=== PATIENT | female | born 1965 | race Caucasian/White ===

== ENCOUNTER → 2016-07-02 | Outpatient (CLI) | payer OTHER ==
[~2016-07-02] MED LIST: /ADVA50050 INH; /GLIM2TA; /ROPI1TA OR; ALBU17IN INH; ALPH0.156 OU; BUPR150T2 PO; BUSP15TA47 PO; CELE10TA PO; CITA20TA4 PO; CLAR250S PO; CRES5TAB PO; FENO160T10 PO; FERR325T PO; FERR325T16 PO; FLEX10TA2 PO; FLEXERIL PO; FLOV50AE INH; FLUC150T PO; FOLI1TAB PO; FURO20TA PO; HYDR25T PO; KETO0.02 OU; LATA5OPD OU; LISI5TAB OR; MAXA10TA17 OR; MONT10TA2 PO; NAPR500T2 PO; OMEP20CA3 PO; OXYB5TA PO; PERC5TAB6 PO; PRED1TA; PRIL20CA; PROV90AE NEB; QVAR40AE8 IN; SIMV5TAB4 PO; SULF500T2 PO; SYMB16INH INH; TIZA4CAP3 PO; TRAD5TAB PO; TRAZ50TA4 PO; VALI2TAB PO; VITA100037 PO; VITA100041 PO; VITA50003 PO; VITATAB11 PO; ZYRT10CA PO
--- NOTE | 2016-07-18 02:02 | ECWPNPC ---
PATIENT NAME: LAURYN DANIEL : 1965 GENDER: FEMALE VISIT DATE: 07/02/2016 DISCHARGE DATE: 07/02/16 1157 VISIT LOCKED DATE TIME: PHYSICIAN: DOMINGO MATUTE RESOURCE: DOMINGO MATUTE REASON FOR APPOINTMENT 1. -BACK HISTORY OF PRESENT ILLNESS HISTORY OF PRESENT ILLNESS: PAIN THE PATIENT DESCRIBES THE PAIN... FALL RISK SCREENING: SCREENING :NO FALLS IN THE PAST YEAR TODAY'S VISIT: NOTES: RATES LOW BACK PAIN 2/10. NOTES AREA SORE, ACHY, TENDER. HAS BEEN ABLE TO WALK AND MOVE. IS DOING WATER AEROBICS. HAS LOST 100 LBS SINCE GASTRIC BYPASS SURGERY. HAS HAD NO COMPLICATIONS.. CURRENT MEDICATIONS TAKING ASMANEX HFA 100 MCG/ACT AEROSOL 2 PUFFS INHALATION TWICE A DAY TAKING VITAMIN D2 125 MG TABLET ORALLY WEEKLY TAKING ALPHAGAN P 0.15 % SOLUTION 1 DROP INTO AFFECTED EYE OPHTHALMIC THREE TIMES A DAY TAKING LASIX 40 MG TABLET 1 TABLET ORALLY ONCE A DAY TAKING FERROUS GLUCONATE 325 MG TABLET ORALLY BID TAKING FOLIC ACID 1 MG TABLET 1 TABLET ORALLY ONCE A DAY TAKING KETOTIFEN FUMARATE 0.025 % SOLUTION 1 DROP INTO AFFECTED EYE OPHTHALMIC TWICE A DAY TAKING REQUIP 1 MG TABLET ORALLY ONCE A DAY TAKING FUSION 65-65-25-30 MG CAPSULE 1 DROP ORALLY FOUR TIMES DAILY TAKING OXYBUTYNIN CHLORIDE 10 MG ORALLY TWICE A DAY NOT-TAKING VITAMIN B-12 CR 1000 MCG TABLET EXTENDED RELEASE 1 TABLET ORALLY ONCE A DAY NOT-TAKING BUSPIRONE HCL 15 MG TABLET 1 TABLET ORALLY TWICE A DAY, NOTES: 03/19/16 NOT-TAKING CITALOPRAM HYDROBROMIDE 40 MG TABLET ORALLY ONCE A DAY, NOTES: 03/19/16 NOT-TAKING FENOFIBRATE 160 MG TABLET ORALLY ONCE A DAY, NOTES: 03/19/16 NOT-TAKING LISINOPRIL 5 MG TABLET 1 TABLET ORALLY ONCE A DAY, NOTES: 03/19/16 NOT-TAKING MONTELUKAST SODIUM 10 MG TABLET ORALLY ONCE A DAY, NOTES: 03/19/16 NOT-TAKING SIMVASTATIN 10 MG TABLET 1 TABLET IN THE EVENING ORALLY ONCE A DAY, NOTES: 03/19/16 NOT-TAKING TIZANIDINE HCL 4 MG TABLET ORALLY TWICE A DAY, NOTES: 10/25/16@2200 NOT-TAKING TRAZODONE HCL 50 MG TABLET ORALLY ONCE A DAY, NOTES: 03/19/16@2199 NOT-TAKING CYCLOBENZAPRINE HCL 10 MG TABLET 1 TABLET ORALLY THREE TIMES A DAY, NOTES: 03/19/16 NOT-TAKING MOBIC 15 MG TABLET 1 TABLET ORALLY ONCE A DAY, NOTES: 03/19/16 NOT-TAKING FLOVENT DISKUS 2 PUFFS INHALATION THREE TIMES A DAY MEDICATION LIST REVIEWED AND RECONCILED WITH THE PATIENT ALLERGIES CODEINE SULFATE: HYPOTENSION COCONUT: VOMIT SOCIAL HISTORY GENERAL: TOBACCO USE ARE YOU A:NONSMOKER LEARNING BARRIERS / SPECIAL NEEDS ORIENTED TO PLAN OF CARE: PATIENT, PAIN MANAGEMENT PATIENT, ORIENTED TO PLAN OF CARE: PATIENT, PAIN MANAGEMENT PATIENT. NEW PATIENT PAIN DIARY TODAY'S VISITNOTES FROM 0-10, WHAT LEVEL IS YOUR PAIN TODAY?0 PAIN CLINIC PFS, CLERGY, PUBLIC HEALTH REFERRALS PFS REFERRAL NEEDED?NO CLERGY REFERRAL NEEDED?NO PUBLIC HEALTH REFERRAL NEEDED?NO WAS THE PROVIDER NOTIFIED OF ANY PERTINENT INFO?NO PFS REFERRAL NEEDED?NO CLERGY REFERRAL NEEDED?NO PUBLIC HEALTH REFERRAL NEEDED?NO WAS THE PROVIDER NOTIFIED OF ANY PERTINENT INFO?NO REVIEW OF SYSTEMS CONSTITUTIONAL: ANY CHANGE IN YOUR MEDICAL CONDITION? NO . CHILLS NO . FEVER NO . INFECTION: DO YOU HAVE NEW INFECTIONS? NO . DO YOU HAVE HISTORY OF MRSA? NO . MUSCULOSKELETAL: ANY NEW PATTERNS OF PAIN OR NUMBNESS? NO . GASTROENTEROLOGY: GENERAL NO DIARRHEA/CONSTIPATION . ANY NEW CHANGE IN BOWEL CONTROL? NO . GENITOURINARY: ANY NEW CHANGE IN BLADDER CONTROL? NO . IS THERE A CHANCE YOU COULD BE ? NO . HEMATOLOGY/LYMPH: DO YOU TAKE ANY BLOOD THINNERS? (FOR EXAMPLE- COUMADIN, PLAVIX, AGGRENOX, PLATEL, PRADAXA, OR XARELTO) NO . WHEN WAS YOUR LAST DOSE? DATE: TIME: . NEUROLOGY: HAVE YOU FALLEN IN THE PAST 6 MONTHS? NO . ANY NEW EXTREMITY NUMBNESS OR WEAKNESS? NO . CARDIOLOGY: DO YOU HAVE A PACEMAKER OR DEFIBRILLATOR? NO . RESPIRATORY: HAVE YOU BEEN SICK IN THE PAST WEEK? NO . FEVER NO . FLU LIKE SYMPTOMS? NO . COUGH NO . INTEGUMENTARY: DO YOU HAVE ANY RASHES OR OPEN SORES? NO . ALLERGIC/IMMUNO: ARE YOU ALLERGIC TO SHELLFISH OR IV DYE? NO . ANY NEW ALLERGIES? NO . PSYCHIATRIC: DO YOU HAVE THOUGHTS OF HURTING YOURSELF OR SOMEONE ELSE? NO . ARE YOU ABUSED, NEGLECTED, OR IN AN UNSAFE ENVIRONMENT? NO . ENDOCRINOLOGY: ARE YOU DIABETIC? NO . OTHER: DO YOU NEED ANY PRESCRIPTIONS? NO . IF YES, PLEASE LIST: ____ . ANY NEW PROBLEMS WITH YOUR MEDICATIONS? NO . WHEN DID YOU LAST EAT? ____ . WHEN DID YOU LAST DRINK? ____ . WHAT DID YOU LAST DRINK? ____ . NAME OF PERSON DRIVING YOU HOME? ____ . DO YOU HAVE ANY OTHER QUESTIONS OR CONCERNS NO . REVIEWED BY: PROVIDER: DOMINGO TSE . VITAL SIGNS WT 227.4 LBS, HT 61 IN, BMI 42.96 INDEX, BP 149/81 MM HG, HR 76 /MIN, RR 16 /MIN, TEMP 96.6 F, OXYGEN SAT % 96, NA INITIALS TL 1046, REVIEWED BY: ADPT WEIGHED ON SCALE- TL. EXAMINATION GENERAL EXAMINATION: PSYCHALERT , ORIENTED X 3 , APPROPRIATE MOOD AND AFFECT , SMILING AND TALKATIVE. LUNGS:CLEAR TO AUSCULTATION BILATERALLY. HEART:HEART RATE REGULAR. MUSCULOSKELETAL:FEW TRIGGER POINTS IDENTIFIED OVER LUMBOSACRAL AXIS. RISES EASILY TO STANDING POSITION. GAIT WIDEBASED, NON ANTALGIC. 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 PROCEDURE CODES FA211 ESTABILISHED PATIENT [facility] CHARGE DISPOSITION & COMMUNICATION FOLLOW UP 6 MONTHS ELECTRONICALLY SIGNED BY DANIELLE ABDULLAHI ON 07/17/2016 AT 01:43 PM EST DISCLAIMER : THIS IS A VISIT SUMMARY EXTRACTED FROM THE [employer] CHART. IT IS NOT A COPY OF THE [employer] PROGRESS NOTE. MTDD
== END ==
LOC: M PAIN 10:20
PROVIDERS: ATTEND Nurse Practitioner Family
DX: Z09 Encounter for follow-up examination after completed treatment for conditions other than malignant neoplasm (principal); G89.29 Other chronic pain; M79.1 Myalgia; M47.816 Spondylosis without myelopathy or radiculopathy, lumbar region; M46.96 Unspecified inflammatory spondylopathy, lumbar region; Z88.5 Allergy status to narcotic agent; Z91.018 Allergy to other foods; Z79.899 Other long term (current) drug therapy

== ENCOUNTER → 2016-08-05 | Outpatient (REF) | payer OTHER ==
[2016-08-05 18:42] LABS: PERCENT SATURATION 35.5 % (13.2-37.4)
== END ==
LOC: M LAB REF 17:26
PROVIDERS: ATTEND Internal Medicine Nephrology
DX: D50.9 Iron deficiency anemia, unspecified (principal)

== ENCOUNTER → 2016-12-30 | Outpatient (CLI) | payer OTHER ==
[~2016-12-30] MED LIST changes: +HYDR-3363 PO; -HYDR25T PO; -OXYB5TA PO; +OXYB5TAB10 PO; +PERC5TAB12 PO; -PERC5TAB6 PO; +TRAZ50TA11 PO; -TRAZ50TA4 PO; +VITA-182 PO; -VITA100037 PO; -VITA100041 PO; +VITA100067 PO; +VITA1CAP40 PO; -VITA50003 PO
--- NOTE | 2017-01-18 23:40 | ECWPNPC ---
PATIENT NAME: LAURYN DANIEL : 1965 GENDER: FEMALE VISIT DATE: 12/30/2016 DISCHARGE DATE: 12/30/16923 VISIT LOCKED DATE TIME: PHYSICIAN: DOMINGO MATUTE RESOURCE: DOMINGO MATUTE REASON FOR APPOINTMENT 1. BACK HISTORY OF PRESENT ILLNESS TODAY'S VISIT: NOTES: RATES PAIN TODAY 1/10. DESCRIBES PAIN ACHING AND SORE AND REMAINS CENTERED AT LOW BACK. IS NOTING KNEE PAIN IS FOLLOWING WITH ORTHOPEDICS. IS WALKING > 1 MILE DAILY. IS DOING WATER EXERCISES. IS CONSIDERING TUMMY TUCK FOR SKIN REMOVAL.. HISTORY OF PRESENT ILLNESS: PAIN THE PATIENT DESCRIBES THE PAIN... FALL RISK SCREENING: SCREENING :NO FALLS IN THE PAST YEAR CURRENT MEDICATIONS TAKING ASMANEX HFA 100 MCG/ACT AEROSOL 2 PUFFS INHALATION TWICE A DAY TAKING VITAMIN D2 125 MG TABLET ORALLY WEEKLY TAKING FERROUS GLUCONATE 325 MG TABLET ORALLY BID TAKING FOLIC ACID 1 MG TABLET 1 TABLET ORALLY ONCE A DAY TAKING KETOTIFEN FUMARATE 0.025 % SOLUTION 1 DROP INTO AFFECTED EYE OPHTHALMIC TWICE A DAY TAKING REQUIP 1 MG TABLET ORALLY ONCE A DAY NOT-TAKING ALPHAGAN P 0.15 % SOLUTION 1 DROP INTO AFFECTED EYE OPHTHALMIC THREE TIMES A DAY NOT-TAKING LASIX 40 MG TABLET 1 TABLET ORALLY ONCE A DAY NOT-TAKING FUSION 65-65-25-30 MG CAPSULE 1 DROP ORALLY FOUR TIMES DAILY NOT-TAKING OXYBUTYNIN CHLORIDE 10 MG ORALLY TWICE A DAY NOT-TAKING VITAMIN B-12 ER 1000 MCG TABLET EXTENDED RELEASE 1 TABLET ORALLY ONCE A DAY NOT-TAKING BUSPIRONE HCL 15 MG TABLET 1 TABLET ORALLY TWICE A DAY, NOTES: 03/19/16 NOT-TAKING CITALOPRAM HYDROBROMIDE 40 MG TABLET ORALLY ONCE A DAY, NOTES: 03/19/16 NOT-TAKING FENOFIBRATE 160 MG TABLET ORALLY ONCE A DAY, NOTES: 03/19/16 NOT-TAKING LISINOPRIL 5 MG TABLET 1 TABLET ORALLY ONCE A DAY, NOTES: 03/19/16 NOT-TAKING MONTELUKAST SODIUM 10 MG TABLET ORALLY ONCE A DAY, NOTES: 03/19/16 NOT-TAKING SIMVASTATIN 10 MG TABLET 1 TABLET IN THE EVENING ORALLY ONCE A DAY, NOTES: 03/19/16 NOT-TAKING TIZANIDINE HCL 4 MG TABLET ORALLY TWICE A DAY, NOTES: 03/19/16 NOT-TAKING TRAZODONE HCL 50 MG TABLET ORALLY ONCE A DAY, NOTES: 03/19/16 NOT-TAKING CYCLOBENZAPRINE HCL 10 MG TABLET 1 TABLET ORALLY THREE TIMES A DAY, NOTES: 03/19/16 NOT-TAKING MOBIC 15 MG TABLET 1 TABLET ORALLY ONCE A DAY, NOTES: 03/19/16 NOT-TAKING FLOVENT DISKUS 2 PUFFS INHALATION THREE TIMES A DAY MEDICATION LIST REVIEWED AND RECONCILED WITH THE PATIENT ALLERGIES CODEINE SULFATE: HYPOTENSION COCONUT: VOMIT SURGICAL HISTORY CARPAL TUNNEL RIGHT WRITS 2000 ARTEIAL GNOSTICIST BIOPSY 1996 TUBAL LIGATION 1989 CHOLESCYSTECTOMY 200 RIGHT SHOULDER ROTATER CUFF 2013 HYSTERECTOMY 1993 GASTRIC BYPASS 2016 REVIEW OF SYSTEMS REVIEWED BY: PROVIDER: DOMINGO TSE . CONSTITUTIONAL: ANY CHANGE IN YOUR MEDICAL CONDITION? NO . CHILLS NO . FEVER NO . INFECTION: DO YOU HAVE NEW INFECTIONS? NO . DO YOU HAVE HISTORY OF MRSA? NO . MUSCULOSKELETAL: ANY NEW PATTERNS OF PAIN OR NUMBNESS? NO . GASTROENTEROLOGY: GENERAL HAS LOST 200 LGBS 0VER LAST 05/27 AND 150 SINCE GASTRIC BYPASS. . ANY NEW CHANGE IN BOWEL CONTROL? NO . GENITOURINARY: ANY NEW CHANGE IN BLADDER CONTROL? NO . IS THERE A CHANCE YOU COULD BE ? NO . HEMATOLOGY/LYMPH: DO YOU TAKE ANY BLOOD THINNERS? (FOR EXAMPLE- COUMADIN, PLAVIX, AGGRENOX, PLATEL, PRADAXA, OR XARELTO) NO . WHEN WAS YOUR LAST DOSE? DATE: TIME: . NEUROLOGY: HAVE YOU FALLEN IN THE PAST 6 MONTHS? NO . ANY NEW EXTREMITY NUMBNESS OR WEAKNESS? NO . CARDIOLOGY: DO YOU HAVE A PACEMAKER OR DEFIBRILLATOR? NO . RESPIRATORY: HAVE YOU BEEN SICK IN THE PAST WEEK? NO . FEVER NO . FLU LIKE SYMPTOMS? NO . COUGH NO . INTEGUMENTARY: DO YOU HAVE ANY RASHES OR OPEN SORES? NO . ALLERGIC/IMMUNO: ARE YOU ALLERGIC TO SHELLFISH OR IV DYE? NO . ANY NEW ALLERGIES? NO . PSYCHIATRIC: DO YOU HAVE THOUGHTS OF HURTING YOURSELF OR SOMEONE ELSE? NO . ARE YOU ABUSED, NEGLECTED, OR IN AN UNSAFE ENVIRONMENT? NO . ENDOCRINOLOGY: ARE YOU DIABETIC? NO . OTHER: DO YOU NEED ANY PRESCRIPTIONS? NO . IF YES, PLEASE LIST: ____ . ANY NEW PROBLEMS WITH YOUR MEDICATIONS? NO . WHEN DID YOU LAST EAT? ____ . WHEN DID YOU LAST DRINK? ____ . WHAT DID YOU LAST DRINK? ____ . NAME OF PERSON DRIVING YOU HOME? ____ . DO YOU HAVE ANY OTHER QUESTIONS OR CONCERNS NO . SKIN: DO YOU HAVE ANY RASHES OR OPEN SORES? RASH ON FOREHEAD . VITAL SIGNS WT 200.0 LBS, HT 61 IN, BMI 37.79 INDEX, BP 142/71 MM HG, HR 55 /MIN, RR 16 /MIN, TEMP 97.7 F, OXYGEN SAT % 97%, NA INITIALS TR 0850, REVIEWED BY: KELECHI. EXAMINATION GENERAL EXAMINATION: PSYCHALERT , ORIENTED X 3 , SMILING AND TALKATIVE. LUNGS:CLEAR TO AUSCULTATION BILATERALLY. HEART:HEART RATE REGULAR. 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 KEEP UP THE GOOD WORK. PROCEDURE CODES FA211 ESTABILISHED PATIENT [facility] CHARGE DISPOSITION & COMMUNICATION FOLLOW UP 6 MONTH (REASON: BACK PAIN) ELECTRONICALLY SIGNED BY DANIELLE ABDULLAHI ON 01/18/2017 AT 02:54 PM EDT DISCLAIMER : THIS IS A VISIT SUMMARY EXTRACTED FROM THE [employer] CHART. IT IS NOT A COPY OF THE [employer] PROGRESS NOTE. EDISON
== END ==
LOC: M PAIN 08:40
PROVIDERS: ATTEND Nurse Practitioner Family
DX: M79.1 Myalgia (principal); M47.816 Spondylosis without myelopathy or radiculopathy, lumbar region; Z88.5 Allergy status to narcotic agent; Z91.018 Allergy to other foods; Z79.899 Other long term (current) drug therapy

== ENCOUNTER → 2017-03-20 | Outpatient (CLI) | payer OTHER ==
--- NOTE | 2017-04-21 00:18 | ECWPNPC ---
PATIENT NAME: LAURYN DANIEL : 1965 GENDER: FEMALE VISIT DATE: 03/20/2017 DISCHARGE DATE: 03/20/17 0954 VISIT LOCKED DATE TIME: PHYSICIAN: DOMINGO MATUTE RESOURCE: DOMINGO MATUTE REASON FOR APPOINTMENT 1. BACK PAIN, INCREASING HISTORY OF PRESENT ILLNESS HISTORY OF PRESENT ILLNESS: PAIN THE PATIENT DESCRIBES THE PAIN... FALL RISK SCREENING: SCREENING :NO FALLS IN THE PAST YEAR TODAY'S VISIT: NOTES: RATES PAIN TODAY 10/10. PAIN IS CENTERED LOW BACK WITH RADIATION OVER BOTH HIPS AND ANTERIOR THIGHS. DESCRIBES PAIN PAIN ACHING, BURNING SHARP AND STABBING TENDER, THROBBING AND SORE. PAIN IS CONSTANT. DENIES NUMBNESS AND TINGLING IN TO LEGS OR FEET. NO LOSS OF BOWEL OR BLADDER CONTROL. REPORTS GENERALIZED HEAVINESS IN LEGS WITH WALKING OR EXERCISE. CURRENT MEDICATIONS TAKING ASMANEX HFA 100 MCG/ACT AEROSOL 2 PUFFS INHALATION TWICE A DAY TAKING FERROUS GLUCONATE 325 MG TABLET ORALLY BID TAKING FOLIC ACID 1 MG TABLET 1 TABLET ORALLY ONCE A DAY TAKING KETOTIFEN FUMARATE 0.025 % SOLUTION 1 DROP INTO AFFECTED EYE OPHTHALMIC TWICE A DAY TAKING REQUIP 1 MG TABLET ORALLY ONCE A DAY TAKING MULTIVITAMIN ADULTS - TABLET 2 TAB ORALLY DAILY NOT-TAKING VITAMIN D2 125 MG TABLET ORALLY WEEKLY NOT-TAKING ALPHAGAN P 0.15 % SOLUTION 1 DROP INTO AFFECTED EYE OPHTHALMIC THREE TIMES A DAY NOT-TAKING LASIX 40 MG TABLET 1 TABLET ORALLY ONCE A DAY NOT-TAKING FUSION 65-65-25-30 MG CAPSULE 1 DROP ORALLY FOUR TIMES DAILY NOT-TAKING OXYBUTYNIN CHLORIDE 10 MG ORALLY TWICE A DAY NOT-TAKING VITAMIN B-12 ER 1000 MCG TABLET EXTENDED RELEASE 1 TABLET ORALLY ONCE A DAY NOT-TAKING BUSPIRONE HCL 15 MG TABLET 1 TABLET ORALLY TWICE A DAY, NOTES: 03/19/16 NOT-TAKING CITALOPRAM HYDROBROMIDE 40 MG TABLET ORALLY ONCE A DAY, NOTES: 03/19/16 NOT-TAKING FENOFIBRATE 160 MG TABLET ORALLY ONCE A DAY, NOTES: 03/19/16 NOT-TAKING LISINOPRIL 5 MG TABLET 1 TABLET ORALLY ONCE A DAY, NOTES: 03/19/16 NOT-TAKING MONTELUKAST SODIUM 10 MG TABLET ORALLY ONCE A DAY, NOTES: 03/19/16 NOT-TAKING SIMVASTATIN 10 MG TABLET 1 TABLET IN THE EVENING ORALLY ONCE A DAY, NOTES: 03/19/16 NOT-TAKING TIZANIDINE HCL 4 MG TABLET ORALLY TWICE A DAY, NOTES: 03/19/16 NOT-TAKING TRAZODONE HCL 50 MG TABLET ORALLY ONCE A DAY, NOTES: 03/19/16 NOT-TAKING CYCLOBENZAPRINE HCL 10 MG TABLET 1 TABLET ORALLY THREE TIMES A DAY, NOTES: 03/19/16 NOT-TAKING MOBIC 15 MG TABLET 1 TABLET ORALLY ONCE A DAY, NOTES: 03/19/16 NOT-TAKING FLOVENT DISKUS 2 PUFFS INHALATION THREE TIMES A DAY MEDICATION LIST REVIEWED AND RECONCILED WITH THE PATIENT ALLERGIES CODEINE SULFATE: HYPOTENSION COCONUT: VOMIT NUTS: VOMITING: ALLERGY SOCIAL HISTORY GENERAL: TOBACCO USE ARE YOU A:NONSMOKER ALCOHOL SCREENING POINTS1 INTERPRETATIONNEGATIVE RECREATIONAL DRUG USE DRUG USE?NO YARSANI [id number] NONE LANGUAGE LANGUAGES SPOKEN:TRISTANIAN LEARNING BARRIERS / SPECIAL NEEDS BARRIERS TO LEARNING?NO HEARING IMPAIRED?NO VISION IMPAIRED?YES :CORRECTIVE LENSES COGNITIVELY IMPAIRED?NO READINESS TO LEARN?YES LEARNING PREFERENCES?NO LEARNING CAPABILITIES PRESENT?YES EMOTIONAL BARRIERS?NO SPECIAL DEVICES?NO MECHANICS SUPERVISOR NEEDED?NO NEW PATIENT PAIN DIARY TODAY'S VISITNOTES FROM 0-10, WHAT LEVEL IS YOUR PAIN TODAY?0 PAIN CLINIC PFS, CLERGY, PUBLIC HEALTH REFERRALS PFS REFERRAL NEEDED?NO CLERGY REFERRAL NEEDED?NO PUBLIC HEALTH REFERRAL NEEDED?NO WAS THE PROVIDER NOTIFIED OF ANY PERTINENT INFO?NO HAS THE PATIENT BEEN EDUCATED REGARDING HIS/HER PLAN OF CARE?YES HAS THE PATIENT BEEN EDUCATED REGARDING PAIN, THE RISK FOR PAIN, THE IMPORTANCE OF EFFECTIVE PAIN MANAGEMENT, AND THE PAIN ASSESSMENT PROCESS?YES ADVANCE DIRECTIVES HEALTH CARE PROXY?NO WOULD YOU LIKE MORE INFORMATION?NO DO YOU HAVE A DNR?NO WOULD YOU LIKE MORE INFORMATION?NO LIVING WILL?NO WOULD YOU LIKE MORE INFORMATION?NO POWER OF PIPING DRAFTER?NO WOULD YOU LIKE MORE INFORMATION?NO REVIEW OF SYSTEMS REVIEWED BY: PROVIDER: DOMINGO TSE . CONSTITUTIONAL: ANY CHANGE IN YOUR MEDICAL CONDITION? NO . CHILLS NO . FEVER NO . INFECTION: DO YOU HAVE NEW INFECTIONS? NO . DO YOU HAVE HISTORY OF MRSA? NO . MUSCULOSKELETAL: ANY NEW PATTERNS OF PAIN OR NUMBNESS? NO . GASTROENTEROLOGY: GENERAL S/P GASTRIC BYPASS SURGERY AND CONTINUES TO HAVE NO GI COMPLICATIONS BUT HAS MADE EXCELLANT PROGESS IN WEIGHT LOSS. . ANY NEW CHANGE IN BOWEL CONTROL? NO . GENITOURINARY: ANY NEW CHANGE IN BLADDER CONTROL? NO . IS THERE A CHANCE YOU COULD BE ? NO . HEMATOLOGY/LYMPH: DO YOU TAKE ANY BLOOD THINNERS? (FOR EXAMPLE- COUMADIN, PLAVIX, AGGRENOX, PLATEL, PRADAXA, OR XARELTO) NO . WHEN WAS YOUR LAST DOSE? DATE: TIME: . NEUROLOGY: HAVE YOU FALLEN IN THE PAST 6 MONTHS? NO . ANY NEW EXTREMITY NUMBNESS OR WEAKNESS? NO . CARDIOLOGY: DO YOU HAVE A PACEMAKER OR DEFIBRILLATOR? NO . RESPIRATORY: HAVE YOU BEEN SICK IN THE PAST WEEK? NO . FEVER NO . FLU LIKE SYMPTOMS? NO . COUGH NO . INTEGUMENTARY: DO YOU HAVE ANY RASHES OR OPEN SORES? NO . ALLERGIC/IMMUNO: ARE YOU ALLERGIC TO SHELLFISH OR IV DYE? NO . ANY NEW ALLERGIES? NO . PSYCHIATRIC: DO YOU HAVE THOUGHTS OF HURTING YOURSELF OR SOMEONE ELSE? NO . ARE YOU ABUSED, NEGLECTED, OR IN AN UNSAFE ENVIRONMENT? NO . ENDOCRINOLOGY: ARE YOU DIABETIC? NO . OTHER: DO YOU NEED ANY PRESCRIPTIONS? NO . IF YES, PLEASE LIST: ____ . ANY NEW PROBLEMS WITH YOUR MEDICATIONS? NO . WHEN DID YOU LAST EAT? ____ . WHEN DID YOU LAST DRINK? ____ . WHAT DID YOU LAST DRINK? ____ . NAME OF PERSON DRIVING YOU HOME? ____ . DO YOU HAVE ANY OTHER QUESTIONS OR CONCERNS NO . VITAL SIGNS WT 199.4 LBS, HT 61 IN, BMI 37.67 INDEX, BP 146/76 MM HG, HR 64 /MIN, RR 18 /MIN, TEMP 98.6 F, OXYGEN SAT % 98%, SAFE IN ENV? (Y/N) YES, REVIEWED BY: JENNIFER (DONE AT 0915). EXAMINATION GENERAL EXAMINATION: PSYCHALERT , ORIENTED X 3 , APPROPRIATE MOOD AND AFFECT , SMILING AND TALKATIVE. LUNGS:CLEAR TO AUSCULTATION BILATERALLY. HEART:HEART RATE REGULAR. MUSCULOSKELETAL:FEW TRIGGER POINTS IDENTIFIED OVER LUMBOSACRAL AXIS. RISES EASILY TO STANDING POSITION. GAIT WIDEBASED, NON ANTALGIC. PAIN WITH PACK EXTENSION, CAN FLEX TO 60 DEGREES.. 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 WITHOUT [id number],SUSAN M 03/20/2017 9:38:27 AM > NEEDS OPEN MRI - HX OF LUMBAR DISC EXTRUSSION WITH INCREASED RADICULAR SYMPTOMS TRIGGER POINT 3 + DOMINGO FERRARO 03/20/2017 9:37:13 AM > LOW BACK NOTES: WALK AND DO EXERCISES DAILYTAKE 1/2 TO 1 TAB OF FLEXERIL AT BEDTIME. CALL IF SCRIPT NEEDED,TRIGGER POINT INJECTION MATERIAL WAS PRINTED/REQUEST AUTH FOR UPDATED MRI OF LUMBAR SPINE. PT HAS BEEN UNDER OUT CARE FOR BACK PAIN FOR 5 YEARS AND LAST IMAGING WAS MRI OF LUMBAR SPINE COMPLETED 02/21/11. USE OF NSAIDS IS CONTRAINDICATED DUE TO GASTRIC BYPASS. SHE HAS BEEN IN PHYSICAL THERAPY AND IS ATTEMPTING TO ACTIVELY EXERCISE - ATTENDS EXERCISE CLASS AT THE [facility]. SHE HAS COMPLETED PHYSICAL THERAPY. USE OF MUSCLE RELAXERS SUCH CYCLOBENZAPRINE AND METHOCARBOMAL HAVE BEEN DIRECTED BY OUR PRACTICE FOR OVER 6 WEEKS WITHOUT IMPROVEMENT. PAIN HAS INCREASED AND HAS BEEN PERSISTANT. SHE IS EXPERIENCING NEUROGENIC CLAUDICATION INTO THE LEGS. UPDATED MRI IS REQUIRED TO GIVE DIRECTION FRO ONGOING TREATMENT. PREVENTIVE MEDICINE PAIN CLINIC TEACHING: PROCEDURE TEACHING PRE PROCEDURE TEACHING DONE FOR TPI . PROCEDURE CODES FA211 ESTABILISHED PATIENT [facility] FACILITY CHARGE DISPOSITION & COMMUNICATION FOLLOW UP AFTER INJECTION (REASON: CHECK AUTH FOR MRI AND TPI) ELECTRONICALLY SIGNED BY DANIELLE ABDULLAHI ON 04/20/2017 AT 11:52 AM EST DISCLAIMER : THIS IS A VISIT SUMMARY EXTRACTED FROM THE [employer] CHART. IT IS NOT A COPY OF THE [employer] PROGRESS NOTE. EDISON
== END ==
LOC: M PAIN 08:45
PROVIDERS: ATTEND Nurse Practitioner Family
DX: M79.1 Myalgia (principal); M47.816 Spondylosis without myelopathy or radiculopathy, lumbar region; M54.5 Low back pain; G89.29 Other chronic pain; Z79.899 Other long term (current) drug therapy; Z88.5 Allergy status to narcotic agent; Z91.018 Allergy to other foods

== ENCOUNTER → 2017-04-02 | Outpatient (CLI) | payer OTHER ==
[~2017-04-02] MED LIST changes: +BUPIVACAINE HCL 0.25% 10 ML VIAL As Ordered ONE; +BUPIVACAINE HCL 0.25% 30 ML VIAL As Ordered ONE; +TRIAMCINOLONE ACETONIDE SUSP 40 MG/ML VIAL (J3301) As Ordered ONE
--- NOTE | 2017-04-08 00:18 | ECWPNPC ---
PATIENT NAME: LAURYN DANIEL : 1965 GENDER: FEMALE VISIT DATE: 04/02/2017 DISCHARGE DATE: 04/02/17 1435 VISIT LOCKED DATE TIME: PHYSICIAN: LUCIANO ESPINOZA RESOURCE: LUCIANO ESPINOZA REASON FOR APPOINTMENT 1. TPI HISTORY OF PRESENT ILLNESS HISTORY OF PRESENT ILLNESS: PAIN THE PATIENT DESCRIBES THE PAIN... FALL RISK SCREENING: SCREENING :NO FALLS IN THE PAST YEAR CURRENT MEDICATIONS TAKING ASMANEX HFA 100 MCG/ACT AEROSOL 2 PUFFS INHALATION TWICE A DAY, NOTES: 04-01-172099 TAKING FERROUS GLUCONATE 325 MG TABLET ORALLY BID, NOTES: 04-01-172099 TAKING FOLIC ACID 1 MG TABLET 1 TABLET ORALLY ONCE A DAY, NOTES: 04-01-172099 TAKING KETOTIFEN FUMARATE 0.025 % SOLUTION 1 DROP INTO AFFECTED EYE OPHTHALMIC TWICE A DAY, NOTES: 04-01-172099 TAKING REQUIP 1 MG TABLET ORALLY ONCE A DAY, NOTES: 04-01-172099 TAKING MULTIVITAMIN ADULTS - TABLET 2 TAB ORALLY DAILY, NOTES: 04-01-172099 DISCONTINUED VITAMIN D2 125 MG TABLET ORALLY WEEKLY DISCONTINUED ALPHAGAN P 0.15 % SOLUTION 1 DROP INTO AFFECTED EYE OPHTHALMIC THREE TIMES A DAY DISCONTINUED LASIX 40 MG TABLET 1 TABLET ORALLY ONCE A DAY DISCONTINUED FUSION 65-65-25-30 MG CAPSULE 1 DROP ORALLY FOUR TIMES DAILY DISCONTINUED OXYBUTYNIN CHLORIDE 10 MG ORALLY TWICE A DAY DISCONTINUED VITAMIN B-12 ER 1000 MCG TABLET EXTENDED RELEASE 1 TABLET ORALLY ONCE A DAY DISCONTINUED BUSPIRONE HCL 15 MG TABLET 1 TABLET ORALLY TWICE A DAY, NOTES: 03/19/16 DISCONTINUED CITALOPRAM HYDROBROMIDE 40 MG TABLET ORALLY ONCE A DAY, NOTES: 03/19/16 DISCONTINUED FENOFIBRATE 160 MG TABLET ORALLY ONCE A DAY, NOTES: 03/19/16 DISCONTINUED LISINOPRIL 5 MG TABLET 1 TABLET ORALLY ONCE A DAY, NOTES: 03/19/16 DISCONTINUED MONTELUKAST SODIUM 10 MG TABLET ORALLY ONCE A DAY, NOTES: 03/19/16 DISCONTINUED SIMVASTATIN 10 MG TABLET 1 TABLET IN THE EVENING ORALLY ONCE A DAY, NOTES: 03/19/16 DISCONTINUED TIZANIDINE HCL 4 MG TABLET ORALLY TWICE A DAY, NOTES: 03/19/16 DISCONTINUED TRAZODONE HCL 50 MG TABLET ORALLY ONCE A DAY, NOTES: 03/19/16@2199 DISCONTINUED CYCLOBENZAPRINE HCL 10 MG TABLET 1 TABLET ORALLY THREE TIMES A DAY, NOTES: 03/19/16 DISCONTINUED MOBIC 15 MG TABLET 1 TABLET ORALLY ONCE A DAY, NOTES: 03/19/16@2199 DISCONTINUED FLOVENT DISKUS 2 PUFFS INHALATION THREE TIMES A DAY MEDICATION LIST REVIEWED AND RECONCILED WITH THE PATIENT ALLERGIES CODEINE SULFATE: HYPOTENSION COCONUT: VOMIT NUTS: VOMITING: ALLERGY SOCIAL HISTORY GENERAL: TOBACCO USE ARE YOU A:NONSMOKER ALCOHOL SCREENING DID YOU HAVE A DRINK CONTAINING ALCOHOL IN THE PAST YEAR?YES HOW OFTEN DID YOU HAVE A DRINK CONTAINING ALCOHOL IN THE PAST YEAR?MONTHLY OR LESS (1 POINT) HOW MANY DRINKS DID YOU HAVE ON A TYPICAL DAY WHEN YOU WERE DRINKING IN THE PAST YEAR?1 OR 2 (0 POINTS) HOW OFTEN DID YOU HAVE SIX OR MORE DRINKS ON ONE OCCASION IN THE PAST YEAR?NEVER (0 POINTS) POINTS1 INTERPRETATIONNEGATIVE RECREATIONAL DRUG USE DRUG USE?NO AMISH [id number] NONE LANGUAGE LANGUAGES SPOKEN:LIBERIAN LEARNING BARRIERS / SPECIAL NEEDS BARRIERS TO LEARNING?NO HEARING IMPAIRED?NO VISION IMPAIRED?YES :CORRECTIVE LENSES COGNITIVELY IMPAIRED?NO READINESS TO LEARN?YES LEARNING PREFERENCES?NO LEARNING CAPABILITIES PRESENT?YES EMOTIONAL BARRIERS?NO SPECIAL DEVICES?NO WRAP YARN SORTER NEEDED?NO NEW PATIENT PAIN DIARY TODAY'S VISITNOTES FROM 0-10, WHAT LEVEL IS YOUR PAIN TODAY?0 PAIN CLINIC PFS, CLERGY, PUBLIC HEALTH REFERRALS PFS REFERRAL NEEDED?NO CLERGY REFERRAL NEEDED?NO PUBLIC HEALTH REFERRAL NEEDED?NO WAS THE PROVIDER NOTIFIED OF ANY PERTINENT INFO?NO HAS THE PATIENT BEEN EDUCATED REGARDING HIS/HER PLAN OF CARE?YES HAS THE PATIENT BEEN EDUCATED REGARDING PAIN, THE RISK FOR PAIN, THE IMPORTANCE OF EFFECTIVE PAIN MANAGEMENT, AND THE PAIN ASSESSMENT PROCESS?YES ADVANCE DIRECTIVES HEALTH CARE PROXY?NO WOULD YOU LIKE MORE INFORMATION?NO DO YOU HAVE A DNR?NO WOULD YOU LIKE MORE INFORMATION?NO LIVING WILL?NO WOULD YOU LIKE MORE INFORMATION?NO POWER OF FOUR [employer] 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 CONSTITUTIONAL: ANY CHANGE IN YOUR MEDICAL CONDITION? NO . CHILLS NO . FEVER NO . INFECTION: DO YOU HAVE NEW INFECTIONS? NO . DO YOU HAVE HISTORY OF MRSA? NO . MUSCULOSKELETAL: ANY NEW PATTERNS OF PAIN OR NUMBNESS? NO . GASTROENTEROLOGY: ANY NEW CHANGE IN BOWEL CONTROL? NO . GENITOURINARY: ANY NEW CHANGE IN BLADDER CONTROL? NO . IS THERE A CHANCE YOU COULD BE ? NO . HEMATOLOGY/LYMPH: DO YOU TAKE ANY BLOOD THINNERS? (FOR EXAMPLE- COUMADIN, PLAVIX, AGGRENOX, PLATEL, PRADAXA, OR XARELTO) NO . WHEN WAS YOUR LAST DOSE? DATE: TIME: . NEUROLOGY: HAVE YOU FALLEN IN THE PAST 6 MONTHS? NO . ANY NEW EXTREMITY NUMBNESS OR WEAKNESS? NO . CARDIOLOGY: DO YOU HAVE A PACEMAKER OR DEFIBRILLATOR? NO . RESPIRATORY: HAVE YOU BEEN SICK IN THE PAST WEEK? NO . FEVER NO . FLU LIKE SYMPTOMS? NO . COUGH NO . INTEGUMENTARY: DO YOU HAVE ANY RASHES OR OPEN SORES? NO . ALLERGIC/IMMUNO: ARE YOU ALLERGIC TO SHELLFISH OR IV DYE? NO . ANY NEW ALLERGIES? YES, PEANUTS ,,, ALLERGY TESTING DONE . PSYCHIATRIC: DO YOU HAVE THOUGHTS OF HURTING YOURSELF OR SOMEONE ELSE? NO . ARE YOU ABUSED, NEGLECTED, OR IN AN UNSAFE ENVIRONMENT? NO . ENDOCRINOLOGY: ARE YOU DIABETIC? NO . OTHER: DO YOU NEED ANY PRESCRIPTIONS? NO . IF YES, PLEASE LIST: ____ . ANY NEW PROBLEMS WITH YOUR MEDICATIONS? NO . WHEN DID YOU LAST EAT? 04-01-17 5:30 PM . WHEN DID YOU LAST DRINK? 04-02-17 9 AM . WHAT DID YOU LAST DRINK? WATER . NAME OF PERSON DRIVING YOU HOME? FAMILY SERVICES SPECIALIST . DO YOU HAVE ANY OTHER QUESTIONS OR CONCERNS NO . VITAL SIGNS WT 199.0 LBS, HT 61 IN, BMI 37.60 INDEX, BP 142/83 MM HG, HR 71 /MIN, RR 16 /MIN, TEMP 97.6 F, OXYGEN SAT % 98%, NA INITIALS TL 1334, REVIEWED BY: CM. ASSESSMENTS MYALGIA - M79.1 (PRIMARY) PROCEDURES PN TRIGGER POINT INJECTION WITH STEROIDS PRE PROCEDURE DIAGNOSIS 1. MYALGIA 2. PAIN AT BILATERAL LOWER BACK AREA POST PROCEDURE DIAGNOSIS 1. MYALGIA 2. PAIN AT BILATERAL LOWER BACK AREA PROCEDURE TRIGGER POINT INJECTION AT BILATERAL LOWER BACK AREA SURGEON DR. LUCIANO ESPINOZA SALES AUDIT CLERK NONE ANESTHESIA LOCAL PRE PROCEDURE NOTE THE PATIENT HAS A HISTORY OF CHRONIC PAIN AT THE RIGHT AND LEFT LOWER BACK AREA. I EVALUATE THE PATIENT AND REVIEWED THE CHART. THERE IS EVIDENCE OF BANDS OF TISSUE WITH RESTRICTION OF MOVEMENT AND PRESENCE OF TRIGGER POINT AT THE AFFECTED AREA. I WENT OVER THE RISKS, ALTERNATIVES, AND BENEFITS ASSOCIATED WITH THIS PROCEDURE. THE PATIENT WOULD LIKE TO PROCEED AND GIVE CONSENT TO PERFORMED THE PROCEDURE. THE PATIENT DENIES UNEXPLAINABLE WEIGHT LOSS, FEVER, CHILLS, OR NEW CHANGES IN URINARY OR BOWEL CONTROL DESCRIPTION OF PROCEDURE THE PATIENT WAS BROUGHT TO THE PROCEDURE ROOM AND PLACED IN THE SITTING POSITION. THE AREA WAS CLEANED WITH ALCOHOL. THE PROCEDURE WAS DONE USING ASEPTIC STERILE TECHNIQUE. I CHECKED LATERALITY AND THE LEVEL WHERE THE PROCEDURE WAS GOING TO BE PERFORMED WITH THE PATIENT AND THE SUPPORTING STAFF AT THE MOMENT OF THE TIME OUT IN THE PROCEDURE ROOM. USING A 25-GAUGE NEEDLE, TRIGGER POINTS WERE INJECTED AT THE RIGHT AND LEFT LOWER BACK AREA WITH A TOTAL OF 40 ML OF BUPIVACAINE 0.25% AND KENALOG 40 MG. THERE WAS NO EVIDENCE OF BLOOD, PARESTHESIA OR CEREBROSPINAL FLUID DURING THE PROCEDURE. THE PATIENT WAS SENT TO THE RECOVERY ROOM. THE PATIENT WAS MOVING THE EXTREMITIES AND DOING WELL. THERE WAS NO COMPLICATION DURING THE PROCEDURE POST PROCEDURE NOTE THE PATIENT WILL BE SEEN IN A FOLLOW UP IN THE NEXT FEW WEEKS. INSTRUCTIONS WERE GIVEN, QUESTIONS WERE ANSWERED, AND THE PATIENT EXPRESSED UNDERSTANDING AND AGREES WITH THE PLAN. I, ANTONELLA LAURA, DOCUMENTED THE ABOVE INFORMATION ACTING A SCRIBE FOR DR. ESPINOZA. I HAVE REVIEWED THE ABOVE DOCUMENT, WRITTEN BY ANTONELLA RIOS AND I VERIFY THAT IT IS ACCURATE PROCEDURE CODES 07234 INJ TRIGGER POINT 05/27 [facility] [facility] [place]UNICATION FOLLOW UP 3 WEEKS ELECTRONICALLY SIGNED BY LUCIANO ESPINOZA MD ON 04/07/2017 AT 10:33 AM EST DISCLAIMER : THIS IS A VISIT SUMMARY EXTRACTED FROM THE [employer] CHART. IT IS NOT A COPY OF THE [employer] PROGRESS NOTE. MTDJennifer
== END ==
LOC: M PAIN 13:45
PROVIDERS: ATTEND Anesthesiology
DX: G89.29 Other chronic pain (principal); M54.5 Low back pain; M79.1 Myalgia; Z88.5 Allergy status to narcotic agent; Z91.018 Allergy to other foods; Z91.010 Allergy to peanuts; Z79.899 Other long term (current) drug therapy
CPT/HCPCS: 20552; J3301

== ENCOUNTER → 2017-06-04 | Outpatient (CLI) | payer OTHER | LOC: M PAIN 10:45 | DX: M79.1 Myalgia (principal); M47.816 Spondylosis without myelopathy or radiculopathy, lumbar region; Z79.899 Other long term (current) drug therapy; Z88.5 Allergy status to narcotic agent; Z91.011 Allergy to milk products; Z91.010 Allergy to peanuts; Z91.018 Allergy to other foods; Z98.84 Bariatric surgery status | CPT/HCPCS: G0463 ==

== ENCOUNTER → 2017-09-25 | Outpatient (CLI) | payer OTHER | LOC: M PAIN 09:30 | DX: Z53.29 Procedure and treatment not carried out because of patient's decision for other reasons (principal) ==

== ENCOUNTER → 2017-11-12 | Outpatient (CLI) | payer OTHER | LOC: M PAIN 10:00 | DX: M79.1 Myalgia (principal); M47.816 Spondylosis without myelopathy or radiculopathy, lumbar region; Z79.899 Other long term (current) drug therapy; Z88.8 Allergy status to other drugs, medicaments and biological substances; Z91.018 Allergy to other foods; Z91.010 Allergy to peanuts; Z91.011 Allergy to milk products; Z98.84 Bariatric surgery status; Z90.711 Acquired absence of uterus with remaining cervical stump; Z90.49 Acquired absence of other specified parts of digestive tract | CPT/HCPCS: G0463 ==

== ENCOUNTER → 2018-03-13 | Outpatient (CLI) | payer OTHER | LOC: M PAIN 10:00 | DX: M79.18 Myalgia, other site (principal); M47.816 Spondylosis without myelopathy or radiculopathy, lumbar region; G25.81 Restless legs syndrome; R73.9 Hyperglycemia, unspecified; J45.909 Unspecified asthma, uncomplicated; E73.9 Lactose intolerance, unspecified; Z79.899 Other long term (current) drug therapy; Z88.5 Allergy status to narcotic agent; Z91.010 Allergy to peanuts; Z91.018 Allergy to other foods; Z98.84 Bariatric surgery status | CPT/HCPCS: G0463 ==

== ENCOUNTER → 2018-03-13 | Outpatient (CLI) | payer OTHER | LOC: M RAD 11:44 | DX: M79.10 Myalgia, unspecified site (principal) | CPT/HCPCS: 72114 ==

== ENCOUNTER → 2018-03-19 | Outpatient (CLI) | payer OTHER | LOC: M PAIN 09:15 | DX: M79.18 Myalgia, other site (principal); M47.816 Spondylosis without myelopathy or radiculopathy, lumbar region; E16.2 Hypoglycemia, unspecified; J45.909 Unspecified asthma, uncomplicated; G25.81 Restless legs syndrome; E73.9 Lactose intolerance, unspecified; Z79.899 Other long term (current) drug therapy; Z88.5 Allergy status to narcotic agent; Z91.010 Allergy to peanuts; Z91.018 Allergy to other foods; Z98.84 Bariatric surgery status | CPT/HCPCS: G0463 ==

== ENCOUNTER → 2018-04-14 | Outpatient (CLI) | payer OTHER ==
[~2018-04-14] MED LIST changes: -/ADVA50050 INH; -/GLIM2TA; -/ROPI1TA OR; -ALBU17IN INH; -ALPH0.156 OU; +BUPIVACAINE HCL 0.25% 10 ML VIAL As Ordered; -BUPIVACAINE HCL 0.25% 10 ML VIAL As Ordered ONE; +BUPIVACAINE HCL 0.25% 30 ML VIAL As Ordered; -BUPIVACAINE HCL 0.25% 30 ML VIAL As Ordered ONE; -BUPR150T2 PO; -BUSP15TA47 PO; -CELE10TA PO; -CITA20TA4 PO; -CLAR250S PO; -CRES5TAB PO; -FENO160T10 PO; -FERR325T PO; -FERR325T16 PO; -FLEX10TA2 PO; -FLEXERIL PO; -FLOV50AE INH; -FLUC150T PO; -FOLI1TAB PO; -FURO20TA PO; -HYDR-3363 PO; -KETO0.02 OU; -LATA5OPD OU; -LISI5TAB OR; -MAXA10TA17 OR; -MONT10TA2 PO; -NAPR500T2 PO; -OMEP20CA3 PO; -OXYB5TAB10 PO; -PERC5TAB12 PO; -PRED1TA; -PRIL20CA; -PROV90AE NEB; -QVAR40AE8 IN; -SIMV5TAB4 PO; -SULF500T2 PO; -SYMB16INH INH; -TIZA4CAP3 PO; -TRAD5TAB PO; -TRAZ50TA11 PO; +TRIAMCINOLONE ACETONIDE SUSP 40 MG/ML VIAL (J3301) As Ordered; -TRIAMCINOLONE ACETONIDE SUSP 40 MG/ML VIAL (J3301) As Ordered ONE; -VALI2TAB PO; -VITA-182 PO; -VITA100067 PO; -VITA1CAP40 PO; -VITATAB11 PO; -ZYRT10CA PO
== END ==
LOC: M PAIN 08:30
DX: M79.18 Myalgia, other site (principal); G25.81 Restless legs syndrome; D64.9 Anemia, unspecified; J45.909 Unspecified asthma, uncomplicated; E16.1 Other hypoglycemia; Z79.899 Other long term (current) drug therapy; Z88.5 Allergy status to narcotic agent; Z91.010 Allergy to peanuts; Z91.018 Allergy to other foods; Z91.011 Allergy to milk products; Z88.8 Allergy status to other drugs, medicaments and biological substances
CPT/HCPCS: J3301

== ENCOUNTER → 2018-06-11 | Outpatient (CLI) | payer OTHER ==
[~2018-06-11] MED LIST changes: +/ADVA50050 INH; +/GLIM2TA; +/ROPI1TA OR; +ALBU17IN INH; +ALPH0.156 OU; -BUPIVACAINE HCL 0.25% 10 ML VIAL As Ordered; -BUPIVACAINE HCL 0.25% 30 ML VIAL As Ordered; +BUPR150T2 PO; +BUSP15TA47 PO; +CELE10TA PO; +CITA20TA4 PO; +CLAR250S PO; +CRES5TAB PO; +FENO160T10 PO; +FERR325T PO; +FERR325T16 PO; +FLEX10TA2 PO; +FLEXERIL PO; +FLOV50AE INH; +FLUC150T PO; +FOLI1TAB PO; +FURO20TA PO; +HYDR-3363 PO; +KETO0.02 OU; +LATA5OPD OU; +LISI5TAB OR; +MAXA10TA17 OR; +MONT10TA2 PO; +NAPR500T2 PO; +OMEP20CA3 PO; +OXYB5TAB10 PO; +PERC5TAB12 PO; +PRED1TA; +PRIL20CA; +PROV90AE NEB; +QVAR40AE8 IN; +SIMV5TAB4 PO; +SULF500T2 PO; +SYMB16INH INH; +TIZA4CAP PO; +TRAD5TAB PO; +TRAZ-160 PO; -TRIAMCINOLONE ACETONIDE SUSP 40 MG/ML VIAL (J3301) As Ordered; +VALI2TAB PO; +VITA-182 PO; +VITA100067 PO; +VITA50005 PO; +VITATAB11 PO; +ZYRT10CA PO
--- NOTE | 2018-06-26 00:24 | ECWPNPC ---
PATIENT NAME: LAURYN DANIEL : 1965 GENDER: FEMALE VISIT DATE: 06/11/2018 DISCHARGE DATE: 06/11/18 0943 VISIT LOCKED DATE TIME: PHYSICIAN: MANISHA RODRIGUEZ RESOURCE: MANISHA RODRIGUEZ REASON FOR APPOINTMENT 1. POST TPI HISTORY OF PRESENT ILLNESS HISTORY OF PRESENT ILLNESS: HERE FOR POST PROCEDURE F/U.HAD TPI LOW BACK ON 04/14/18.REPORTING 2 WEEKS OF IMPROVED PAIN CONTROL.RATING PAIN VAS 8/10.HAD FALL @ [facility] AND IS FOLLOWING WITH [facility] FOR ACUTE RIGHT HIP AND KNEE PAIN POST FALL.CONSIDERING SURGICAL INTRVENTION.HAVING SEVERE HEAD PAIN AND IS FOLLOWING WITH OPTHAMOLOGY AND PRIMARY CARE.HEADACHES HAVE BEEN ESCALATING OVER THE PAST 3 MONTHS.QUESTION OF BLEEDING BEHIND EYES.HAS ALSO BEEN HAVING FEVER AND DIARHEA OVER THE PAST WEEK. PAIN THE PATIENT DESCRIBES THE PAIN... FALL RISK SCREENING: SCREENING :NO FALLS IN THE PAST YEAR CURRENT MEDICATIONS TAKING CITALOPRAM HYDROBROMIDE 20 MG TABLET 1 TABLET ORALLY ONCE A DAY TAKING ROPINIROLE HCL 1 MG TABLET 1 TABLET 1 TO 3 HOURS BEFORE BEDTIME ORALLY ONCE A DAY TAKING LISINOPRIL 5 MG TABLET 1 TABLET ORALLY ONCE A DAY TAKING VITAMIN D-3 1000 UNIT CAPSULE 1 CAPSULE ORALLY ONCE A DAY TAKING QVAR REDIHALER 80 MCG/ACT AEROSOL BREATH ACTIVATED 1 PUFF INHALATION TWICE A DAY TAKING SM EYE ITCH RELIEF 0.025 % SOLUTION 1 DROP INTO AFFECTED EYE OPHTHALMIC TWICE A DAY TAKING FERROUS GLUCONATE 325 MG TABLET ORALLY BID TAKING FOLIC ACID 1 MG TABLET 1 TABLET ORALLY ONCE A DAY TAKING MULTIVITAMIN ADULTS - TABLET 2 TAB ORALLY DAILY TAKING LATANOPROST 0.005 % SOLUTION 1 DROP INTO AFFECTED EYE OPHTHALMIC BID TAKING TYLENOL 325 MG TABLET 2 TABLET NEEDED ORALLY BEFORE BEDTIME NOT-TAKING ASMANEX HFA 100 MCG/ACT AEROSOL 2 PUFFS INHALATION TWICE A DAY NOT-TAKING TIZANIDINE HCL 2 MG TABLET 1 TABLET NEEDED ORALLY THREE TIMES A DAY, NOTES: UNSURE OF DOSE, ONLY TAKES AT BEDTIME NOT-TAKING KETOTIFEN FUMARATE 0.025 % SOLUTION 1 DROP INTO AFFECTED EYE OPHTHALMIC TWICE A DAY NOT-TAKING REQUIP 1 MG TABLET ORALLY ONCE A DAY, NOTES: [id number] MEDICATION LIST REVIEWED AND RECONCILED WITH THE PATIENT PAST MEDICAL HISTORY BACK PAIN RESTLESS LEG HYPOGLYCEMIA ANEMIA ASTHMA ALLERGIES CODEINE SULFATE: HYPOTENSION COCONUT: VOMIT NUTS: VOMITING: ALLERGY PEANUT BUTTER : VOILENT VOMITING MILK: NAUSEA PEANUT (DIAGNOSTIC) LACTOSE: SIDE EFFECTS SURGICAL HISTORY CARPAL TUNNEL RIGHT WRITS 2000 ARTEIAL SIKHISM BIOPSY 1996 TUBAL LIGATION 1989 CHOLESCYSTECTOMY 200 RIGHT SHOULDER ROTATER CUFF 2014 HYSTERECTOMY 1994 GASTRIC BYPASS 2016 FAMILY HISTORY FATHER: , DIAGNOSED WITH DIABETES, HYPERTENSION, HEART DISEASE, OTHER MOTHER: ALIVE, DIAGNOSED WITH OTHER 1 BROTHER(S) - HEALTHY. 2 SON(S) - HEALTHY. SOCIAL HISTORY GENERAL: TOBACCO USE ARE YOU A:NONSMOKER ALCOHOL SCREENING DID YOU HAVE A DRINK CONTAINING ALCOHOL IN THE PAST YEAR?YES HOW OFTEN DID YOU HAVE A DRINK CONTAINING ALCOHOL IN THE PAST YEAR?MONTHLY OR LESS (1 POINT) HOW MANY DRINKS DID YOU HAVE ON A TYPICAL DAY WHEN YOU WERE DRINKING IN THE PAST YEAR?1 OR 2 (0 POINTS) HOW OFTEN DID YOU HAVE SIX OR MORE DRINKS ON ONE OCCASION IN THE PAST YEAR?NEVER (0 POINTS) POINTS1 INTERPRETATIONNEGATIVE RECREATIONAL DRUG USE DRUG USE?NO YAZIDISM [id number] NONE LANGUAGE LANGUAGES SPOKEN:BURMESE LEARNING BARRIERS / SPECIAL NEEDS BARRIERS TO LEARNING?NO HEARING IMPAIRED?NO VISION IMPAIRED?YES :CORRECTIVE LENSES COGNITIVELY IMPAIRED?NO READINESS TO LEARN?YES LEARNING PREFERENCES?NO LEARNING CAPABILITIES PRESENT?YES EMOTIONAL BARRIERS?NO SPECIAL DEVICES?NO TIRE WORKER NEEDED?NO NEW PATIENT PAIN DIARY TODAY'S VISITNOTES FROM 0-10, WHAT LEVEL IS YOUR PAIN TODAY?8.5 PAIN CLINIC PFS, CLERGY, PUBLIC HEALTH REFERRALS PFS REFERRAL NEEDED?NO CLERGY REFERRAL NEEDED?NO PUBLIC HEALTH REFERRAL NEEDED?NO WAS THE PROVIDER NOTIFIED OF ANY PERTINENT INFO?NO HAS THE PATIENT BEEN EDUCATED REGARDING HIS/HER PLAN OF CARE?YES HAS THE PATIENT BEEN EDUCATED REGARDING PAIN, THE RISK FOR PAIN, THE IMPORTANCE OF EFFECTIVE PAIN MANAGEMENT, AND THE PAIN ASSESSMENT PROCESS?YES ADVANCE DIRECTIVE ADVANCE DIRECTIVE DISCUSSED WITH PATIENT:YES DECLINES INFORMATION AT THIS TIME REVIEWED WITH PATIENT 03/13/18 1037 JSREVEIWED WITH PATIENT 03/19/18 0947 JSREVIEWED WITH PT 04/13/18 0853 BV. HOSPITALIZATION/MAJOR DIAGNOSTIC PROCEDURE SURGERY RELATED REVIEW OF SYSTEMS REVIEWED BY: PROVIDER: MANISHA TSE . CONSTITUTIONAL: ANY CHANGE IN YOUR MEDICAL CONDITION? NO . CHILLS NO . FEVER NO . INFECTION: DO YOU HAVE NEW INFECTIONS? NO . DO YOU HAVE HISTORY OF MRSA? NO . MUSCULOSKELETAL: ANY NEW PATTERNS OF PAIN OR NUMBNESS? NO . GASTROENTEROLOGY: ANY NEW CHANGE IN BOWEL CONTROL? NO . GENITOURINARY: ANY NEW CHANGE IN BLADDER CONTROL? NO . IS THERE A CHANCE YOU COULD BE ? NO . HEMATOLOGY/LYMPH: DO YOU TAKE ANY BLOOD THINNERS? (FOR EXAMPLE- COUMADIN, PLAVIX, AGGRENOX, PLATEL, PRADAXA, OR XARELTO) NO . WHEN WAS YOUR LAST DOSE? DATE: TIME: . NEUROLOGY: HAVE YOU FALLEN IN THE PAST 12 MONTHS? YES, PRIOR TO LAST VISIT . ANY NEW EXTREMITY NUMBNESS OR WEAKNESS? YES, LOW BACK PAIN RADIATING DOWN RIGHT LEG . CARDIOLOGY: DO YOU HAVE A PACEMAKER OR DEFIBRILLATOR? NO . RESPIRATORY: HAVE YOU BEEN SICK IN THE PAST WEEK? YES, DIARRHEA X 36 HOURS . FEVER YES, 103.6 RESOLVED . FLU LIKE SYMPTOMS? NO . COUGH YES, POST TUSSIVE EMESIS . INTEGUMENTARY: DO YOU HAVE ANY RASHES OR OPEN SORES? NO . ALLERGIC/IMMUNO: ARE YOU ALLERGIC TO IV DYE? NO . ANY NEW ALLERGIES? NO . PSYCHIATRIC: DO YOU HAVE THOUGHTS OF HURTING YOURSELF OR SOMEONE ELSE? NO . ARE YOU ABUSED, NEGLECTED, OR IN AN UNSAFE ENVIRONMENT? NO . ENDOCRINOLOGY: ARE YOU DIABETIC? NO . OTHER: DO YOU NEED ANY PRESCRIPTIONS? NO . IF YES, PLEASE LIST: ____ . ANY NEW PROBLEMS WITH YOUR MEDICATIONS? NO . WHEN DID YOU LAST EAT? ____ . WHEN DID YOU LAST DRINK? ____ . WHAT DID YOU LAST DRINK? ____ . NAME OF PERSON DRIVING YOU HOME? ____ . DO YOU HAVE ANY OTHER QUESTIONS OR CONCERNS NO . VITAL SIGNS WT 218 LBS, HT 61 IN, BMI 41.19 INDEX, BP 192/85 MM HG, HR 60 /MIN, RR 16 /MIN, TEMP 96.0 F, OXYGEN SAT % 100, REVIEWED BY: EMPT STATES HER B/P IS HIGH FOR A MIGRAINE. EM. EXAMINATION GENERAL EXAMINATION: GENERAL APPEARANCE:ALERT,NO DISTRESS WALKS WITH LIMP OVER RIGHT LEG. PSYCHAFFECT NORMAL . LUNGS:LUNG SOUNDS ARE CLEAR . HEART:HEART RATE REGULAR . DIAGNOSTIC TESTS REVIEWEDCT L/S [id number] . 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 PROCEDURE CODES FA211 ESTABILISHED PATIENT [facility] CHARGE DISPOSITION & COMMUNICATION FOLLOW UP 8-10-WKS ELECTRONICALLY SIGNED BY DEDRICK FORREST ON 06/25/2018 AT 02:55 PM EST DISCLAIMER : THIS IS A VISIT SUMMARY EXTRACTED FROM THE [employer] CHART. IT IS NOT A COPY OF THE [employer] PROGRESS NOTE. EDISON
== END ==
LOC: M PAIN 09:00
PROVIDERS: ATTEND Nurse Practitioner Family
DX: M48.9 Spondylopathy, unspecified (principal); M79.18 Myalgia, other site; G25.81 Restless legs syndrome; J45.909 Unspecified asthma, uncomplicated; E73.9 Lactose intolerance, unspecified; E66.01 Morbid (severe) obesity due to excess calories; Z68.41 Body mass index [BMI] 40.0-44.9, adult; Z79.899 Other long term (current) drug therapy; Z88.5 Allergy status to narcotic agent; Z91.018 Allergy to other foods; Z91.010 Allergy to peanuts; Z98.84 Bariatric surgery status

== ENCOUNTER → 2018-08-20 | Outpatient (CLI) | payer OTHER | LOC: M PAIN 10:00 | PROVIDERS: ATTEND Nurse Practitioner Family | DX: M54.5 Low back pain (principal); Z53.29 Procedure and treatment not carried out because of patient's decision for other reasons ==

== ENCOUNTER → 2018-09-17 | Outpatient (CLI) | payer OTHER ==
[~2018-09-17] MED LIST changes: -/ADVA50050 INH; -/GLIM2TA; -/ROPI1TA OR; +ADVA1AER2 INH; +AMAR1TAB5; -CITA20TA4 PO; +CITA20TA6 PO; +LATA0.0013 OU; -LATA5OPD OU; +REQU1TAB16 OR
--- NOTE | 2018-09-17 09:47 | REP ---
BILATERAL LOWER EXTREMITY DUPLEX DOPPLER ARTERIAL ULTRASOUND: Real-time ultrasound evaluation and duplex Doppler interrogation of bilateral lower extremity arterial systems is performed. GABBIE right is 1.0 and left 0.9. There is no duplex Doppler sonographic evidence of hemodynamically significant stenosis of the bilateral lower extremity arterial systems. Mild scattered plaquing is seen bilaterally. Triphasic waveforms are seen diffusely throughout both lower extremity arterial systems and there are normal flow velocities. PEAK SYSTOLIC VELOCITY RIGHT LEFT Common femoral artery 108.0 cm/s 103.0 cm/s Profunda 74.0 72.0 Proximal SFA 85.0 126.0 Popliteal 79.0 81.0 Proximal anterior tibial artery 47.0 56.0 Tibial peroneal trunk 41.0 65.0 Proximal posterior tibial artery 42.0 101.0 Distal posterior tibial artery 61.0 64.0 Distal anterior tibial artery 76.0 75.0 IMPRESSION: Mild scattered plaquing bilaterally without evidence of hemodynamically significant stenosis. Electronically Signed by Alfonzo Chand MD 09/17/2018 11:09 A
== END ==
LOC: M RAD 06:54
PROVIDERS: ATTEND Surgery Vascular Surgery
DX: M79.605 Pain in left leg (principal); M79.604 Pain in right leg

== ENCOUNTER → 2018-09-25 | Outpatient (CLI) | payer OTHER ==
--- NOTE | 2018-10-21 01:32 | ECWPNPC ---
PATIENT NAME: LAURYN DANIEL : 1965 GENDER: FEMALE VISIT DATE: 09/25/2018 DISCHARGE DATE: 09/25/18 1022 VISIT LOCKED DATE TIME: PHYSICIAN: MANISHA RODRIGUEZ RESOURCE: MANISHA RODRIGUEZ REASON FOR APPOINTMENT 1. BACK HISTORY OF PRESENT ILLNESS HISTORY OF PRESENT ILLNESS: HERE FOR F/U OF CHRONIC LOW BACK PAIN.REPORTING AN INCREASE IN LOWER EXTREMITY PAIN.RATING PAIN VAS 7/10.DESCRIBES PAIN CONTINUOUS AND ACHING.PAIN AWAKENS HER FROM SLEEP.REVIEWED MRI AND DISCUSSED TREATMENT OPTIONS. PAIN THE PATIENT DESCRIBES THE PAIN... FALL RISK SCREENING: SCREENING :NO FALLS REPORTED IN THE LAST YEAR CURRENT MEDICATIONS TAKING CITALOPRAM HYDROBROMIDE 20 MG TABLET 1 TABLET ORALLY ONCE A DAY TAKING ROPINIROLE HCL 1 MG TABLET 1 TABLET 1 TO 3 HOURS BEFORE BEDTIME ORALLY ONCE A DAY TAKING QVAR REDIHALER 80 MCG/ACT AEROSOL BREATH ACTIVATED 1 PUFF INHALATION TWICE A DAY TAKING SM EYE ITCH RELIEF 0.025 % SOLUTION 1 DROP INTO AFFECTED EYE OPHTHALMIC TWICE A DAY TAKING FERROUS GLUCONATE 325 MG TABLET ORALLY BID TAKING FOLIC ACID 1 MG TABLET 1 TABLET ORALLY ONCE A DAY TAKING MULTIVITAMIN ADULTS - TABLET 2 TAB ORALLY DAILY TAKING LATANOPROST 0.005 % SOLUTION 1 DROP INTO AFFECTED EYE OPHTHALMIC BID TAKING POTASSIUM CITRATE - GRANULES DIRECTED TAKING PROTONIX 40 MG TABLET DELAYED RELEASE 1 TABLET ORALLY ONCE A DAY TAKING ZOFRAN 4 MG TABLET 1 TABLET ORALLY ONCE A DAY TAKING ASMANEX HFA 100 MCG/ACT AEROSOL 2 PUFFS INHALATION TWICE A DAY NOT-TAKING LISINOPRIL 5 MG TABLET 1 TABLET ORALLY ONCE A DAY NOT-TAKING VITAMIN D-3 1000 UNIT CAPSULE 1 CAPSULE ORALLY ONCE A DAY NOT-TAKING TYLENOL 325 MG TABLET 2 TABLET NEEDED ORALLY BEFORE BEDTIME UNKNOWN TIZANIDINE HCL 2 MG TABLET 1 TABLET NEEDED ORALLY THREE TIMES A DAY, NOTES: UNSURE OF DOSE, ONLY TAKES AT BEDTIME UNKNOWN KETOTIFEN FUMARATE 0.025 % SOLUTION 1 DROP INTO AFFECTED EYE OPHTHALMIC TWICE A DAY UNKNOWN REQUIP 1 MG TABLET ORALLY ONCE A DAY, NOTES: 04-01-172099 MEDICATION LIST REVIEWED AND RECONCILED WITH THE PATIENT PAST MEDICAL HISTORY BACK PAIN RESTLESS LEG HYPOGLYCEMIA ANEMIA ASTHMA ALLERGIES CODEINE SULFATE: HYPOTENSION COCONUT: VOMIT NUTS: VOMITING - ALLERGY PEANUT BUTTER : VOILENT VOMITING MILK: NAUSEA PEANUT (DIAGNOSTIC) LACTOSE: SIDE EFFECTS AMOXICILLIN SURGICAL HISTORY CARPAL TUNNEL RIGHT WRITS 2001 ARTEIAL PENTECOSTALISM BIOPSY 1996 TUBAL LIGATION 1989 CHOLESCYSTECTOMY 200 RIGHT SHOULDER ROTATER CUFF 2014 HYSTERECTOMY 1993 GASTRIC BYPASS 2015 FAMILY HISTORY FATHER: , DIAGNOSED WITH DIABETES, HYPERTENSION, HEART DISEASE, OTHER MOTHER: ALIVE, OTHER 1 BROTHER(S) - HEALTHY. 2 SON(S) - HEALTHY. SOCIAL HISTORY GENERAL: TOBACCO USE ARE YOU A: NONSMOKER. PAIN CLINIC PFS, CLERGY, PUBLIC HEALTH REFERRALS PFS REFERRAL NEEDED?NO CLERGY REFERRAL NEEDED?NO PUBLIC HEALTH REFERRAL NEEDED?NO WAS THE PROVIDER NOTIFIED OF ANY PERTINENT INFO?YES HAS THE PATIENT BEEN EDUCATED REGARDING HIS/HER PLAN OF CARE?YES HAS THE PATIENT BEEN EDUCATED REGARDING PAIN, THE RISK FOR PAIN, THE IMPORTANCE OF EFFECTIVE PAIN MANAGEMENT, AND THE PAIN ASSESSMENT PROCESS?YES LATEX QUESTIONNAIRE LATEX ALLERGY : HAVE YOU EVER DEVELOPED ANY TYPE OF REACTION AFTER HANDLING LATEX PRODUCTS SUCH RUBBER GLOVES, CONDOMS, DIAPHRAGMS, BALLOONS, SOCKS, OR UNDERWEAR?NO LATEX ALLERGY : HAVE YOU EVER DEVELOPED ANY TYPE OF REACTION DURING OR AFTER DENTAL APPOINTMENT, VAGINAL/RECTAL EXAMINATION, SURGICAL PROCEDURE, OR ANY OTHER EXPOSURE?NO LATEX RISK : HAVE YOU EVER HAD ANY DIFFICULTY BREATHING OR HIVES AFTER EATING OR HANDLING ANY FRUITS, OR VEGETABLES; SUCH KIWI, BANANAS, STONE FRUITS, OR CHESTNUTSNO LATEX RISK : DO YOU HAVE A PREVIOUS PERSONAL HISTORY OF MORE THAN NINE SURGERIES, SPINA BIFIDA, OR REPEATED CATHERTIZATIONS? NO LATEX RISK : ARE YOU FREQUENTLY EXPOSED TO LATEX PRODUCTS IN YOUR OCCUPATION?NO DATE ASKED : 08/20/2018 ADVANCE DIRECTIVE ADVANCE DIRECTIVE DISCUSSED WITH PATIENT:YES DECLINES INFORMATION AT THIS TIME MU-ISM [id number] NONE LANGUAGE LANGUAGES SPOKEN:SPANISH NEW PATIENT PAIN DIARY TODAY'S VISITNOTES FROM 0-10, WHAT LEVEL IS YOUR PAIN TODAY?8.5 ALCOHOL SCREENING DID YOU HAVE A DRINK CONTAINING ALCOHOL IN THE PAST YEAR?YES HOW OFTEN DID YOU HAVE A DRINK CONTAINING ALCOHOL IN THE PAST YEAR?MONTHLY OR LESS (1 POINT) HOW MANY DRINKS DID YOU HAVE ON A TYPICAL DAY WHEN YOU WERE DRINKING IN THE PAST YEAR?1 OR 2 (0 POINTS) HOW OFTEN DID YOU HAVE SIX OR MORE DRINKS ON ONE OCCASION IN THE PAST YEAR?NEVER (0 POINTS) POINTS1 INTERPRETATIONNEGATIVE RECREATIONAL DRUG USE DRUG USE?NO LEARNING BARRIERS / SPECIAL NEEDS BARRIERS TO LEARNING?NO HEARING IMPAIRED?NO VISION IMPAIRED?YES :CORRECTIVE LENSES COGNITIVELY IMPAIRED?NO READINESS TO LEARN?YES LEARNING PREFERENCES?NO LEARNING CAPABILITIES PRESENT?YES EMOTIONAL BARRIERS?NO SPECIAL DEVICES?NO ELECTRIC REFRIGERATOR SERVICER NEEDED?NO REVIEWED WITH PATIENT 03/13/18 1037 JSREVEIWED WITH PATIENT 03/19/18 0947 JSREVIEWED WITH PT 04/13/18 0853 BV. HOSPITALIZATION/MAJOR DIAGNOSTIC PROCEDURE SURGERY RELATED REVIEW OF SYSTEMS REVIEWED BY: PROVIDER: MANISHA TSE . CONSTITUTIONAL: ANY CHANGE IN YOUR MEDICAL CONDITION? NO . CHILLS NO . FEVER NO . INFECTION: DO YOU HAVE NEW INFECTIONS? NO . DO YOU HAVE HISTORY OF MRSA? NO . MUSCULOSKELETAL: ANY NEW PATTERNS OF PAIN OR NUMBNESS? INCREASED PAIN IN BACK DOWN BOTH LEGS . GASTROENTEROLOGY: ANY NEW CHANGE IN BOWEL CONTROL? NO . GENITOURINARY: ANY NEW CHANGE IN BLADDER CONTROL? NO . IS THERE A CHANCE YOU COULD BE ? NO . HEMATOLOGY/LYMPH: DO YOU TAKE ANY BLOOD THINNERS? (FOR EXAMPLE- COUMADIN, PLAVIX, AGGRENOX, PLATEL, PRADAXA, OR XARELTO) NO . WHEN WAS YOUR LAST DOSE? DATE: TIME: . NEUROLOGY: HAVE YOU FALLEN IN THE PAST 12 MONTHS? "CLUMSIER" . ANY NEW EXTREMITY NUMBNESS OR WEAKNESS? NO . CARDIOLOGY: DO YOU HAVE A PACEMAKER OR DEFIBRILLATOR? NO . RESPIRATORY: HAVE YOU BEEN SICK IN THE PAST WEEK? NO . FEVER NO . FLU LIKE SYMPTOMS? NO . COUGH NO . INTEGUMENTARY: DO YOU HAVE ANY RASHES OR OPEN SORES? NO . ALLERGIC/IMMUNO: ARE YOU ALLERGIC TO IV DYE? NO . ANY NEW ALLERGIES? NO . PSYCHIATRIC: DO YOU HAVE THOUGHTS OF HURTING YOURSELF OR SOMEONE ELSE? NO . ARE YOU ABUSED, NEGLECTED, OR IN AN UNSAFE ENVIRONMENT? NO . ENDOCRINOLOGY: ARE YOU DIABETIC? NO . OTHER: DO YOU NEED ANY PRESCRIPTIONS? NO . IF YES, PLEASE LIST: ____ . ANY NEW PROBLEMS WITH YOUR MEDICATIONS? NO . WHEN DID YOU LAST EAT? ____ . WHEN DID YOU LAST DRINK? ____ . WHAT DID YOU LAST DRINK? ____ . NAME OF PERSON DRIVING YOU HOME? ____ . DO YOU HAVE ANY OTHER QUESTIONS OR CONCERNS NO . VITAL SIGNS WT 218 LBS, HT 61 IN, BMI 41.19 INDEX, BP 154/84 MM HG, HR 60 /MIN, RR 18 /MIN, TEMP 97.7 F, OXYGEN SAT % 97%, NA INITIALS SC 09:36, REVIEWED BY: KG. EXAMINATION GENERAL EXAMINATION: GENERAL APPEARANCE: ALERT,NO DISTRESS . PSYCH AFFECT NORMAL . LUNGS: LUNG SOUNDS ARE CLEAR . HEART: HEART RATE REGULAR . MUSCULOSKELETAL: MST 5/5 BILAT. LOWER EXTREMITIES . LUMBAR SACRAL SPINE TENDERNESS BILAT. SIJ . DIAGNOSTIC TESTS REVIEWEDMRI L/S [id number] . ASSESSMENTS SACROILIAC JOINT PAIN - M53.3 (PRIMARY) TREATMENT SACROILIAC JOINT PAIN NOTES: BILAT. SIJ. PROCEDURE CODES FA211 ESTABILISHED PATIENT [facility] CHARGE DISPOSITION & COMMUNICATION FOLLOW UP POST (REASON: BILAT. SIJ) ELECTRONICALLY SIGNED BY DEDRICK FORREST ON 10/20/2018 AT 08:18 AM EDT DISCLAIMER : THIS IS A VISIT SUMMARY EXTRACTED FROM THE [employer] & other things you [employer] CHART. IT IS NOT A COPY OF THE [employer] other things you [employer] PROGRESS NOTE. EDISON
== END ==
LOC: M PAIN 09:15
PROVIDERS: ATTEND Nurse Practitioner Family
DX: M53.3 Sacrococcygeal disorders, not elsewhere classified (principal); G89.29 Other chronic pain; G25.81 Restless legs syndrome; D50.9 Iron deficiency anemia, unspecified; J45.909 Unspecified asthma, uncomplicated; Z98.84 Bariatric surgery status; Z88.1 Allergy status to other antibiotic agents; Z88.5 Allergy status to narcotic agent; Z91.010 Allergy to peanuts; Z91.011 Allergy to milk products; Z91.018 Allergy to other foods; E66.01 Morbid (severe) obesity due to excess calories; Z68.41 Body mass index [BMI] 40.0-44.9, adult; Z79.899 Other long term (current) drug therapy

== ENCOUNTER → 2018-11-05 | Outpatient (CLI) | payer OTHER ==
[~2018-11-05] MED LIST changes: +BUPIVACAINE HCL 0.25% 30 ML VIAL As Ordered ONE; +ISOVUE-M 300 61% 15ML VIAL (Q9967) As Ordered ONE; +LIDOCAINE 1% SDV INJ 30 ML VIAL As Ordered ONE; -TRAZ-160 PO; +TRAZ-252 PO; +TRIAMCINOLONE ACETONIDE SUSP 40 MG/ML VIAL (J3301) As Ordered ONE; +diazePAM 5 MG TAB As Ordered ONE; +oxyCODONE 5MG TAB As Ordered ONE
--- NOTE | 2018-11-05 11:35 | REP ---
BILATERAL SI JOINT: Seven views. HISTORY: Bilateral sacroiliac joint injection procedure for pain. 50 seconds of fluoroscopy time was utilized. FINDINGS: A sequence of seven last image hold fluoroscopically obtained spot radiographs of the sacroiliac joints bilaterally document bilateral needle position and contrast injections associated with injection procedure. Electronically Signed by Hemant Woodruff MD 11/05/2018 03:05 P
--- NOTE | 2018-11-14 23:22 | ECWPNPC ---
PATIENT NAME: LAURYN DANIEL : 1965 GENDER: FEMALE VISIT DATE: 11/05/2018 DISCHARGE DATE: 11/05/18 1053 VISIT LOCKED DATE TIME: PHYSICIAN: LUCIANO ESPINOZA MD RESOURCE: LUCIANO ESPINOZA MD REASON FOR APPOINTMENT 1. BILAT. [facility] HISTORY OF PRESENT ILLNESS HISTORY OF PRESENT ILLNESS: PAIN THE PATIENT DESCRIBES THE PAIN... FALL RISK SCREENING: SCREENING :NO FALLS REPORTED IN THE LAST YEAR CURRENT MEDICATIONS TAKING CITALOPRAM HYDROBROMIDE 20 MG TABLET 1 TABLET ORALLY ONCE A DAY, NOTES: 11/04/182199 TAKING ROPINIROLE HCL 1 MG TABLET 1 TABLET 1 TO 3 HOURS BEFORE BEDTIME ORALLY ONCE A DAY, NOTES: 11/04/182199 TAKING QVAR REDIHALER 80 MCG/ACT AEROSOL BREATH ACTIVATED 1 PUFF INHALATION TWICE A DAY, NOTES: 11/04/182199 TAKING SM EYE ITCH RELIEF 0.025 % SOLUTION 1 DROP INTO AFFECTED EYE OPHTHALMIC TWICE A DAY, NOTES: 11/04/182199 TAKING FERROUS GLUCONATE 325 MG TABLET ORALLY BID, NOTES: 11/04/182199 TAKING FOLIC ACID 1 MG TABLET 1 TABLET ORALLY ONCE A DAY, NOTES: 11/04/182199 TAKING MULTIVITAMIN ADULTS - TABLET 2 TAB ORALLY DAILY, NOTES: 11/04/182199 TAKING LATANOPROST 0.005 % SOLUTION 1 DROP INTO AFFECTED EYE OPHTHALMIC BID, NOTES: 11/04/182199 TAKING POTASSIUM CITRATE - GRANULES DIRECTED , NOTES: 11/04/182199 TAKING ASMANEX HFA 100 MCG/ACT AEROSOL 2 PUFFS INHALATION TWICE A DAY, NOTES: 11/04/182199 TAKING OMEPRAZOLE 20 MG CAPSULE DELAYED RELEASE 1 CAPSULE ORALLY ONCE A DAY, NOTES: 11/04/18 AM NOT-TAKING PROTONIX 40 MG TABLET DELAYED RELEASE 1 TABLET ORALLY ONCE A DAY NOT-TAKING ZOFRAN 4 MG TABLET 1 TABLET ORALLY ONCE A DAY NOT-TAKING LISINOPRIL 5 MG TABLET 1 TABLET ORALLY ONCE A DAY NOT-TAKING VITAMIN D-3 1000 UNIT CAPSULE 1 CAPSULE ORALLY ONCE A DAY NOT-TAKING TYLENOL 325 MG TABLET 2 TABLET NEEDED ORALLY BEFORE BEDTIME NOT-TAKING TIZANIDINE HCL 2 MG TABLET 1 TABLET NEEDED ORALLY THREE TIMES A DAY, NOTES: UNSURE OF DOSE, ONLY TAKES AT BEDTIME NOT-TAKING KETOTIFEN FUMARATE 0.025 % SOLUTION 1 DROP INTO AFFECTED EYE OPHTHALMIC TWICE A DAY NOT-TAKING REQUIP 1 MG TABLET ORALLY ONCE A DAY, NOTES: [id number] MEDICATION LIST REVIEWED AND RECONCILED WITH THE PATIENT PAST MEDICAL HISTORY BACK PAIN RESTLESS LEG HYPOGLYCEMIA ANEMIA ASTHMA ALLERGIES CODEINE SULFATE: HYPOTENSION COCONUT: VOMIT NUTS: VOMITING - ALLERGY PEANUT BUTTER : VOILENT VOMITING MILK: NAUSEA PEANUT (DIAGNOSTIC) LACTOSE: SIDE EFFECTS AMOXICILLIN SURGICAL HISTORY CARPAL TUNNEL RIGHT WRITS 2000 ARTEIAL EPISCOPALIAN BIOPSY 1996 TUBAL LIGATION 1989 CHOLESCYSTECTOMY 200 RIGHT SHOULDER ROTATER CUFF 2013 HYSTERECTOMY 1993 GASTRIC BYPASS 2015 FAMILY HISTORY FATHER: , DIAGNOSED WITH DIABETES, HYPERTENSION, HEART DISEASE, OTHER MOTHER: ALIVE, OTHER 1 BROTHER(S) - HEALTHY. 2 SON(S) - HEALTHY. SOCIAL HISTORY GENERAL: TOBACCO USE ARE YOU A: NONSMOKER. PAIN CLINIC PFS, CLERGY, PUBLIC HEALTH REFERRALS PFS REFERRAL NEEDED?NO CLERGY REFERRAL NEEDED?NO PUBLIC HEALTH REFERRAL NEEDED?NO WAS THE PROVIDER NOTIFIED OF ANY PERTINENT INFO?YES HAS THE PATIENT BEEN EDUCATED REGARDING HIS/HER PLAN OF CARE?YES HAS THE PATIENT BEEN EDUCATED REGARDING PAIN, THE RISK FOR PAIN, THE IMPORTANCE OF EFFECTIVE PAIN MANAGEMENT, AND THE PAIN ASSESSMENT PROCESS?YES LATEX QUESTIONNAIRE LATEX ALLERGY : HAVE YOU EVER DEVELOPED ANY TYPE OF REACTION AFTER HANDLING LATEX PRODUCTS SUCH RUBBER GLOVES, CONDOMS, DIAPHRAGMS, BALLOONS, SOCKS, OR UNDERWEAR?NO LATEX ALLERGY : HAVE YOU EVER DEVELOPED ANY TYPE OF REACTION DURING OR AFTER DENTAL APPOINTMENT, VAGINAL/RECTAL EXAMINATION, SURGICAL PROCEDURE, OR ANY OTHER EXPOSURE?NO LATEX RISK : HAVE YOU EVER HAD ANY DIFFICULTY BREATHING OR HIVES AFTER EATING OR HANDLING ANY FRUITS, OR VEGETABLES; SUCH KIWI, BANANAS, STONE FRUITS, OR CHESTNUTSNO LATEX RISK : DO YOU HAVE A PREVIOUS PERSONAL HISTORY OF MORE THAN NINE SURGERIES, SPINA BIFIDA, OR REPEATED CATHERTIZATIONS? NO LATEX RISK : ARE YOU FREQUENTLY EXPOSED TO LATEX PRODUCTS IN YOUR OCCUPATION?NO DATE ASKED : 08/20/2018 ADVANCE DIRECTIVE ADVANCE DIRECTIVE DISCUSSED WITH PATIENT:YES DECLINES INFORMATION AND ASSISTANCE WITH FORM AT THIS TIME. 11/05/18 0855 MORMONISM [id number] NONE LANGUAGE LANGUAGES SPOKEN:ARMENIAN NEW PATIENT PAIN DIARY TODAY'S VISITNOTES FROM 0-10, WHAT LEVEL IS YOUR PAIN TODAY?8.5 ALCOHOL SCREENING DID YOU HAVE A DRINK CONTAINING ALCOHOL IN THE PAST YEAR?YES HOW OFTEN DID YOU HAVE A DRINK CONTAINING ALCOHOL IN THE PAST YEAR?MONTHLY OR LESS (1 POINT) HOW MANY DRINKS DID YOU HAVE ON A TYPICAL DAY WHEN YOU WERE DRINKING IN THE PAST YEAR?1 OR 2 (0 POINTS) HOW OFTEN DID YOU HAVE SIX OR MORE DRINKS ON ONE OCCASION IN THE PAST YEAR?NEVER (0 POINTS) POINTS1 INTERPRETATIONNEGATIVE RECREATIONAL DRUG USE DRUG USE?NO LEARNING BARRIERS / SPECIAL NEEDS BARRIERS TO LEARNING?NO HEARING IMPAIRED?NO VISION IMPAIRED?YES :CORRECTIVE LENSES COGNITIVELY IMPAIRED?NO READINESS TO LEARN?YES LEARNING PREFERENCES?NO LEARNING CAPABILITIES PRESENT?YES EMOTIONAL BARRIERS?NO SPECIAL DEVICES?NO MEMBER OF TECHNICAL STAFF NEEDED?NO REVIEWED WITH PATIENT 03/13/18 1037 JSREVEIWED WITH PATIENT 03/19/18 0947 JSREVIEWED WITH PT 04/13/18 0853 BVREVIEWED WITH PT 11/05/18 0856 BV. HOSPITALIZATION/MAJOR DIAGNOSTIC PROCEDURE SURGERY RELATED REVIEW OF SYSTEMS REVIEWED BY: PROVIDER: . CONSTITUTIONAL: ANY CHANGE IN YOUR MEDICAL CONDITION? NO . CHILLS NO . FEVER NO . INFECTION: DO YOU HAVE NEW INFECTIONS? NO . DO YOU HAVE HISTORY OF MRSA? NO . MUSCULOSKELETAL: ANY NEW PATTERNS OF PAIN OR NUMBNESS? NO . GASTROENTEROLOGY: ANY NEW CHANGE IN BOWEL CONTROL? NO . GENITOURINARY: ANY NEW CHANGE IN BLADDER CONTROL? NO . IS THERE A CHANCE YOU COULD BE ? NO . HEMATOLOGY/LYMPH: DO YOU TAKE ANY BLOOD THINNERS? (FOR EXAMPLE- COUMADIN, PLAVIX, AGGRENOX, PLATEL, PRADAXA, OR XARELTO) NO . WHEN WAS YOUR LAST DOSE? DATE: TIME: . NEUROLOGY: HAVE YOU FALLEN IN THE PAST 12 MONTHS? NO . ANY NEW EXTREMITY NUMBNESS OR WEAKNESS? NO . CARDIOLOGY: DO YOU HAVE A PACEMAKER OR DEFIBRILLATOR? NO . RESPIRATORY: HAVE YOU BEEN SICK IN THE PAST WEEK? NO . FEVER NO . FLU LIKE SYMPTOMS? NO . COUGH NO . INTEGUMENTARY: DO YOU HAVE ANY RASHES OR OPEN SORES? NO . ALLERGIC/IMMUNO: ARE YOU ALLERGIC TO IV DYE? NO . ANY NEW ALLERGIES? NO . PSYCHIATRIC: DO YOU HAVE THOUGHTS OF HURTING YOURSELF OR SOMEONE ELSE? NO . ARE YOU ABUSED, NEGLECTED, OR IN AN UNSAFE ENVIRONMENT? NO . ENDOCRINOLOGY: ARE YOU DIABETIC? YES, FSBS 102 . OTHER: DO YOU NEED ANY PRESCRIPTIONS? NO . IF YES, PLEASE LIST: ____ . ANY NEW PROBLEMS WITH YOUR MEDICATIONS? NO . WHEN DID YOU LAST EAT? YES, 11/04/18 1700 . WHEN DID YOU LAST DRINK? 11/04/18 2300 . WHAT DID YOU LAST DRINK? WATER . NAME OF PERSON DRIVING YOU HOME? JOSE ROBERTO PARRISH . DO YOU HAVE ANY OTHER QUESTIONS OR CONCERNS NO . VITAL SIGNS WT 220.0 LBS, HT 61 IN, BMI 41.56 INDEX, BP 169/78 MM HG, HR 63 /MIN, RR 18 /MIN, TEMP 97.1 F, OXYGEN SAT % 98%, NA INITIALS AW 0852, REVIEWED BY: BV. ASSESSMENTS SACROILIITIS, NOT ELSEWHERE CLASSIFIED - M46.1 (PRIMARY) PROCEDURES PN SI PRE PROCEDURE DIAGNOSIS SACROILIITIS, SACROILIAC JOINT DYSFUNCTION POST PROCEDURE DIAGNOSIS SACROILIITIS, SACROILIAC JOINT DYSFUNCTION PROCEDURE BILATERAL SACROILIAC JOINT BLOCK SURGEON DR. LUCIANO ESPINOZA WHIZZER HAND NONE ANESTHESIA LOCAL PRE PROCEDURE NOTE PATIENT WITH HISTORY OF CHRONIC LOW BACK PAIN. I EVALUATED THE PATIENT AND REVIEWED THE CHART. I WENT OVER THE RISKS, ALTERNATIVES, AND BENEFITS ASSOCIATED WITH THIS PROCEDURE. THE PATIENT WOULD LIKE TO PROCEED AND GAVE CONSENT TO PERFORM THE PROCEDURE. THE PATIENT DENIES UNEXPLAINABLE WEIGHT LOSS, FEVER, CHILLS, OR NEW CHANGES IN URINARY OR BOWEL CONTROL DESCRIPTION OF PROCEDURE THE PATIENT WAS BROUGHT TO THE PROCEDURE ROOM AND PLACED IN THE PRONE POSITION. THE LUMBOSACRAL AREA WAS CLEANED WITH CHLORAPREP SOLUTION AND DRAPED ASEPTICALLY. THE PROCEDURE WAS DONE UNDER STERILE CONDITIONS. I CHECKED LATERALITY AND THE LEVEL WHERE THE PROCEDURE WAS GOING TO BE PERFORMED WITH THE PATIENT AND THE SUPPORTING STAFF AT THE MOMENT OF THE TIME OUT IN THE PROCEDURE ROOM. UNDER FLUOROSCOPIC GUIDANCE, TARGET POINT WAS SELECTED AT THE LOWER BORDER OF THE RIGHT AND LEFT SACROILIAC JOINT. TARGET POINT WAS SELECTED AFTER MEDIAL ROTATION AND TILT OF THE MAGNIFIER OF THE C-ARM. LIDOCAINE WAS USED TO NUMB THE SKIN AND SUBCUTANEOUS TISSUE BELOW IT. A SPINAL NEEDLE, 22-GAUGE, WAS ADVANCED UNDER FLUOROSCOPIC GUIDANCE AND FOLLOWING PATIENT FEEDBACK UNTIL THE TARGET AREA WAS TOUCHED. THE POSITION OF THE NEEDLE WAS VERIFIED WITH AP AND LATERAL VIEWS. AFTER PROPER POSITION OF THE NEEDLE WAS ACHIEVED, ISOVUE M DYE 30%, 0.25 ML, WAS INJECTED SHOWING SPREAD OF THE DYE. THEN, A SOLUTION OF 20 MG OF KENALOG WAS INJECTED IN RIGHT AND LEFT JOINT WITH 3 ML OF BUPIVACAINE 0.125%. THERE WAS NO EVIDENCE OF BLOOD, PARESTHESIA OR CEREBROSPINAL FLUID DURING THE PROCEDURE. THE PATIENT WAS SENT TO THE RECOVERY ROOM. THE PATIENT WAS MOVING THE EXTREMITIES AND DOING WELL. THERE WAS NO COMPLICATION DURING THE PROCEDURE. FLUOROSCOPY TIME WAS 50 SECONDS POST PROCEDURE NOTE THE PATIENT WILL BE SEEN IN A FOLLOW UP IN THE NEXT FEW WEEKS. INSTRUCTIONS WERE GIVEN, QUESTIONS WERE ANSWERED, AND THE PATIENT EXPRESSED UNDERSTANDING AND AGREED WITH THE PLAN. I, DAMARIS NEWBERRY, DOCUMENTED THE ABOVE INFORMATION ACTING A SCRIBE FOR DR. ESPINOZA. I HAVE REVIEWED THE ABOVE DOCUMENT, WRITTEN BY DAMARIS RIOS AND I VERIFY THAT IT IS ACCURATE. DIAGNOSTIC IM[facility] FLUORO GUIDANCE (PAIN)[id number] PROCEDURE CODES 6045F RADXPS IN END [id number] PXD 13091 INJECT SACROILIAC JOINT, MODIFIERS: 50 DISPOSITION & COMMUNICATION FOLLOW UP 3 WEEKS ELECTRONICALLY SIGNED BY LUCIANO ESPINOZA MD, MD ON 11/14/2018 AT 06:15 PM EDT DISCLAIMER : THIS IS A VISIT SUMMARY EXTRACTED FROM THE LOCK[employer] CHART. IT IS NOT A COPY OF THE L[employer] PROGRESS NOTE. MTDD
== END ==
LOC: M PAIN 08:30
PROVIDERS: ATTEND Anesthesiology
DX: M46.1 Sacroiliitis, not elsewhere classified (principal); G25.81 Restless legs syndrome; D64.9 Anemia, unspecified; J45.909 Unspecified asthma, uncomplicated; Z98.84 Bariatric surgery status; Z90.49 Acquired absence of other specified parts of digestive tract; Z79.899 Other long term (current) drug therapy; Z88.0 Allergy status to penicillin; Z88.5 Allergy status to narcotic agent; Z91.011 Allergy to milk products; Z91.010 Allergy to peanuts; Z91.018 Allergy to other foods
CPT/HCPCS: 27096; J3301; Q9967

== ENCOUNTER → 2019-03-10 | Outpatient (CLI) | payer OTHER ==
[~2019-03-10] MED LIST changes: -BUPIVACAINE HCL 0.25% 30 ML VIAL As Ordered ONE; -ISOVUE-M 300 61% 15ML VIAL (Q9967) As Ordered ONE; -LIDOCAINE 1% SDV INJ 30 ML VIAL As Ordered ONE; -TRIAMCINOLONE ACETONIDE SUSP 40 MG/ML VIAL (J3301) As Ordered ONE; -diazePAM 5 MG TAB As Ordered ONE; -oxyCODONE 5MG TAB As Ordered ONE
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
== END ==
LOC: M PAIN 10:00
PROVIDERS: ATTEND Nurse Practitioner Family
DX: M46.1 Sacroiliitis, not elsewhere classified (principal); G89.29 Other chronic pain; G25.81 Restless legs syndrome; D50.9 Iron deficiency anemia, unspecified; J45.909 Unspecified asthma, uncomplicated; Z98.84 Bariatric surgery status; Z88.1 Allergy status to other antibiotic agents; Z88.5 Allergy status to narcotic agent; Z91.010 Allergy to peanuts; Z91.011 Allergy to milk products; Z91.018 Allergy to other foods; E66.01 Morbid (severe) obesity due to excess calories; Z68.41 Body mass index [BMI] 40.0-44.9, adult; Z79.899 Other long term (current) drug therapy

== ENCOUNTER 2019-05-21 09:51 | Inpatient (IN) | payer OTHER ==
--- NOTE | 2019-05-14 14:58 | HPE ---
DATE OF ADMISSION: 05/21/2019 HISTORY OF PRESENT ILLNESS: This is a pleasant 53-year-old female with continuing symptomatic left knee osteoarthritis. She consented for a left total knee arthroplasty per Dr. Burke Mendez. Medical optimization per Dr. Gonzalez. X-rays were consistent with advanced osteoarthritis. ALLERGIES: 1. CODEINE. 2. Coconut. 3. Dairy products. 4. peanuts. 5. Cat dander. 6. dust mites. 7. Calcium. 8. white mold. MEDICATION LIST: - OneTouch Ultra Blue used twice daily - OneTouch ultra 2 with device us monitor to test blood sugars as directed - OneTouch Delica lancets, extra fine 33G test blood glucose levels twice a day - citalopram hydrobromide 20 mg 1 tablet by mouth every day - Neomycin polymyxin HC 1% 4 drops q.i.d. - Glucose management two at a time - [id number] as needed for low fingersticks or feeling shaky - Lancets Infinite Ze Safety lancets two times daily for blood sugar monitoring for insert in GE lancet device - ropinirole HCL 1 mg tablet 1 tablet by mouth at bedtime - folic acid 1 mg tablet 1 tablet by mouth every day - Alphagan P 0.1% instill 1 drop in affected eye three times a day - latanoprost ophthalmic 0.005%, instill 1 drop into affected eyes once daily - albuterol sulfate (2.5 mg/3 mL) 0.08% 1 unit dose q.6 h as needed - ferrous gluconate 324-38 FE (mg) take 1 tablet by mouth twice a day - vitamin D 1000 max strength 1000 units 1 tablet [id number]. Dr. Mai wanted her to start. - lisinopril hydrochlorothiazide 10-12.5 mg daily - amlodipine besylate 2.5 mg take 1 tablet by mouth every day - SMI itch relief 0.025% instill 1 drop into affected eye times a day - dorzolamide HCL 2% still 1 drop intake each eye three times a day and to each as directed - potassium citrate ER 10 mEq (1080 mg) 1 tablet by mouth b.i.d. Dr. Mai - QVAR RediHaler 80 mcg/ECT inhale 2 puffs by mouth two times a day rinse after use MEDICAL PROBLEM LIST: Includes: Symptomatic left knee osteoarthritis. Urinary tract infections. Vitamin D deficiency. Obesity. Sleep apnea. Vitamin B complex deficiency. Type 2 diabetes mellitus. Body mass index 40+, really obese. Dysuria. Otitis media. Allergic rhinitis. Hyperlipidemia. Asthma without status asthmaticus. Obstructive sleep apnea syndrome. Insomnia. Cobalamin deficiency disorder. Vitamin D. Restless legs. Normocytic anemia. Carotid (1.43). Gastroesophageal reflux disease. Iron deficiency anemia. Chronic obstructive lung disease. Diabetes mellitus. Hypertensive disorder. Heart murmur. Hyposensitization to allergens. Functional dyspepsia. PAST SURGICAL HISTORY: Gastric bypass 2015. Carpal tunnel right side [address] Hodgson. Arterial temporal biopsy, Dr. Black, long ago. Rotator cuff 2013, right side, Dr. Salmon. Abdominal hernia in 2001. Removal of gallbladder 1999. Tubal ligation 1989. Total hysterectomy 1993. Endoscopy 2018. FAMILY HISTORY: Cardiopulmonary disease, enlarged heart on O2, hypertension, hyperlipidemia. SOCIAL HISTORY: She is a former smoker, stopped in 1997. Rare ethanol intake. REVIEW OF SYSTEMS: The patient denies chest pain, shortness of breath, dyspnea on exertion, fever, chills, malaise, upper respiratory symptoms or urinary tract symptoms. Chest x-ray via [facility] study date 01/04/2019 heart is enlarged, pulmonary vascularity is within normal limits. Lung hardy are clear. Cardiomegaly as read by, there is no name. EKG results sinus bradycardia, otherwise normal EKG, 04/25/2019, Dr. Gonzalez. Medical clearance states that Dr. Gonzalez wants the patient is see Dr. Diez for cardiac clearance prior to procedure. Otherwise Dr. Gonzalez sees no other contraindications for planned surgery, that she is medically cleared to undergo the procedure. LABORATORIES: No gross abnormality. Sed rate elevated at 48, MPV 11.5. PHYSICAL EXAMINATION: Vitals: Blood pressure 123/84, pulse 70, temperature 97.1, height 62, weight 224, BMI 41.0, respirations 16. This is a pleasant well-developed, well-nourished obese female in no acute distress. Alert and oriented times three. Mood and affect are appropriate. Ambulates slow and steady with favoring about the right lower extremity, some antalgia to the left knee which has positive joint line tenderness. Otherwise bilateral lower extremity skin is intact, benign, noninfectious looking. Bowel sounds are times four, soft, nontender. Chest rises symmetrically. Regular rate and rhythm. Lungs clear to auscultation. Neck supple. Negative JVD or bruits. Normocephalic. IMPRESSION: 1. Left knee symptomatic osteoarthritis. 2. Patient consented for left total knee arthroplasty per Dr. Burke Mendez. 3. Medical optimization per Dr. Gonzalez, which referred to Dr. Diez for cardiac clearance, which the latter we are still awaiting. 4. On-call OR 2 grams IV Kefzol in OR. 5. SCD and TEDS in OR.
[~2019-05-21] VITALS: Ht 154.9 cm; Wt 102.1 kg
[~2019-05-21 09:51] MED LIST changes: +EYE0.0254 OU; +FERR32TA PO; +FOLI1TAB11 PO; +HYDR12CA PO; +LISI40TA PO; +POTA10808 PO; +QVAR80AE8 INH; +ROPI1TAB PO; +XALA0.007 OU; +fentaNYL 100 MCG/2 ML INJECTION (J3010) IV SCH
[2019-05-21] MEDS ORDERED: LR 1,000 ML IV ONE (10:15)
[2019-05-21] MEDS ORDERED: ACETAMINOPHEN 500 MG TAB PO ONE (10:30)
[2019-05-21] MEDS ORDERED: ceFAZolin SOD 2 GM in IV 1 EA IV ONE (10:30)
[2019-05-21] MEDS ORDERED: ceFAZolin 1GM INJ (J0690 PER 500MG) As Ordered ONE (10:38)
[2019-05-21] MEDS ORDERED: BUPIVACAINE LIPOSOME/PF 1.3% 20ML VIAL (13.3MG/ML)(EXPAREL)(C9290 PER1MG) As Ordered ONE (10:39)
[2019-05-21] MEDS ORDERED: EPINEPHrine INJ 1 MG/ML 1ML VIAL As Ordered ONE (10:40)
[2019-05-21] MEDS ORDERED: BUPIVACAINE HCL 0.25% 30 ML VIAL As Ordered ONE (10:41)
[2019-05-21] MEDS ORDERED: TRANEXAMIC ACID 100 MG/ML 10ML VIAL As Ordered ONE (12:11)
[2019-05-21] MEDS ORDERED: ONDANSETRON 4MG/2ML VIAL (J2405) As Ordered ONE ×2 (13:05→14:31)
[2019-05-21] MEDS ORDERED: dexameTHASONE 4 MG/ML 1ML VIAL (J1100) As Ordered ONE ×2 (13:05→14:31)
[2019-05-21] MEDS ORDERED: PROPOFOL 500 MG/50 ML VIAL As Ordered ONE ×2 (13:05→14:29)
[2019-05-21] MEDS ORDERED: LIDOCAINE 2% INJ 100 MG/5 ML SDV (FOR ANES.) As Ordered ONE ×2 (13:05→14:31)
[2019-05-21] MEDS ORDERED: MIDAZOLAM INJ 2 MG/2 ML VIAL (J2250) As Ordered ONE ×2 (13:23→15:05)
[2019-05-21] MEDS ORDERED: fentaNYL 100 MCG/2 ML INJECTION (J3010) As Ordered ONE (13:23)
[2019-05-21] MEDS: MIDAZOLAM INJ 2 MG/2 ML VIAL (J2250) IV SCH ×2 (13:40→13:44)
[2019-05-21] MEDS ORDERED: ROPIvacaine 0.5% 30 ML INJECTION (J2795 PER 1MG) ONE (14:26)
[2019-05-21] MEDS ORDERED: EPINEPHrine INJ 1 MG/ML 1ML VIAL ONE (14:26)
[2019-05-21] MEDS ORDERED: dexameTHASONE 10 MG/1 ML VIAL PRES.FREE (J1100) ONE (14:26)
[2019-05-21] MEDS ORDERED: KETAMINE HCL 200 MG/20 ML VIAL As Ordered ONE (15:50)
[2019-05-21] MEDS ORDERED: PROPOFOL 200 MG/20 ML VIAL As Ordered ONE (16:23)
[2019-05-21] MEDS ORDERED: LR 1,000 ML IV SCH (17:30)
[2019-05-21] MEDS ORDERED: METOCLOPRAMIDE INJ 10MG/2ML VIAL (J2765) IV PRN (17:30)
[2019-05-21] MEDS ORDERED: FLEET ENEMA PR PRN (17:30)
[2019-05-21] MEDS ORDERED: fentaNYL 100 MCG/2 ML INJECTION (J3010) IV PRN (17:30)
[2019-05-21] MEDS ORDERED: ACETAMINOPHEN TAB 650MG DOSE (2X325MG) PO PRN (17:30)
[2019-05-21] MEDS ORDERED: MEPERIDINE INJ 25 MG/ML VIAL (J2175) IV PRN (17:30)
[2019-05-21] MEDS ORDERED: oxyCODONE 5MG TAB PO PRN (17:30)
[2019-05-21] MEDS ORDERED: ONDANSETRON 4MG/2ML VIAL (J2405) IV PRN (17:30)
[2019-05-21] MEDS: LR 1,000 ML IV SCH (18:09)
--- NOTE | 2019-05-21 18:16 | REP ---
Clinical: Status post knee replacement. Technique AP and cross-table lateral views. Findings: The patient is status post right knee replacement with normal positioning and appearance to the femoral and tibial components. Overlying postsurgical changes appreciated. Impression: Status post right knee replacement. Electronically Signed by Jacob Rahman MD 05/21/2019 06:08 P
[2019-05-21 18:30] VITALS: BP 194/102
[2019-05-21] MEDS ORDERED: HYDROMORPHONE HCL 0.5 MG/ 0.5 ML SYRINGE (J1170 PER 1) IV PRN ×2 (18:45)
[2019-05-21] MEDS ORDERED: hydrALAZINE INJ 20 MG/ML VIAL IV STA (18:53)
[2019-05-21] MEDS ORDERED: hydroCHLOROthiazide 12.5 MG CAPSULE PO ONE (19:15)
[2019-05-21] MEDS ORDERED: lisinopriL 40 MG TAB PO ONE (19:15)
--- NOTE | 2019-05-21 19:18 | CR.PDOC ---
General Date of Consultation: May 21, 2019 Consultation REASON FOR CONSULTATION/CHIEF COMPLAINT: Physical evaluation HISTORY OF PRESENT ILLNESS: Patient is 53 years old female with past medical his tory of diabetes, hypertension, GERD, obstructive sleep apnea, GERD was admitted to the hospital for planned left knee replacement. Patient denies fever, chills, nausea, chest pain, palpitations, vomiting, diarrhea or dysuria ALLERGIES: Please see below. HOME MEDICATIONS: Please see below. PAST MEDICAL HISTORY: Urinary tract infections. Vitamin D deficiency. Obesity. Sleep apnea. Type 2 diabetes mellitus. Body mass index 40+, really obese. Otitis media. Allergic rhinitis. Hyperlipidemia. Asthma without status asthmaticus. Obstructive sleep apnea syndrome. Insomnia. Cobalamin deficiency disorder. Vitamin D. Restless legs. Normocytic anemia. Gastroesophageal reflux disease. Iron deficiency anemia. Chronic obstructive lung disease. Diabetes mellitus. Hypertensive disorder. Heart murmur. Hyposensitization to allergens. Functional dyspepsia. PAST SURGICAL HISTORY: Gastric bypass 2015. Carpal tunnel right side [address] Hodgson. Arterial temporal biopsy, Dr. Black, long ago. Rotator cuff 2013, right side, Dr. Salmon. Abdominal hernia in 2001. Removal of gallbladder 1999. Tubal ligation 1989. Total hysterectomy 1993. Endoscopy 2018. FAMILY HISTORY: Father: CHF, hypertension, hyperlipidemia Mother: Healthy SOCIAL HISTORY: Tobacco use: Former smoker ETOH: Denies Illicit drug use: Denies IV drug use: Denies REVIEW OF SYSTEMS: 10 point review system negative except listed above PHYSICAL EXAMINATION: VITAL SIGNS: Please see below. GENERAL APPEARANCE: Obese female, NAD HEENT: Normocephalic, atraumatic. Mucous members moist and pink CARDIOVASCULAR: Regular rate and rhythm. No murmurs, rubs or gallops. Radial pulses are intact. LUNGS: Diminished lung sounds ABDOMEN: Bowel sounds are hypoactive. Abdomen is soft and nontender. MUSCULOSKELETAL: Range of motion restricted of left knee NEUROLOGICAL: Cranial nerves II-12 are grossly intact. Speech is not dysarthric LABORATORY DATA: Please see below. ASSESSMENT/PLAN: Patient is 53 years old female with past medical history of diabetes, hypertension, GERD, obstructive sleep apnea, GERD was admitted to the hospital for planned left knee replacement. Status post left knee osteoarthritis Continue pain management Anticoagulation per orthopedic team Hypertension Continue lisinopril and hydrochlorothiazide Diabetes mellitus Glucose levels under control Insulin sliding scale GERD Omeprazole 20 mg twice a day Obstructive sleep apnea Patient will benefit from CPAP Vital Signs/I&O Vital Signs Date Time Temp Pulse Resp B/P (MAP) Pulse Ox O2 Delivery O2 Flow Rate FiO2 05/21/19 18:30 194/102 (132) 05/21/19 18:20 18 05/21/19 17:55 2.0 05/21/19 17:40 97 65 96 Nasal Cannula Laboratory Data Labs 24H Laboratory Tests 2 05/21/19 11:59: Bedside Glucose (Misc Panel) 76 05/21/19 16:48: Bedside Glucose (Misc Panel) 107H Allergies Coded Allergies: Peanut (Verified Allergy, Severe, feels like face shot with novocaine, 05/03/19) milk (Verified Allergy, Intermediate, vomiting, 05/03/19) ENVIROMENTAL (Verified Allergy, Unknown, 05/03/19) codeine (Verified Adverse Reaction, Intermediate, vomiting, hypotension, 05/03/19) Coconut (Verified Adverse Reaction, Mild, VOMIT, 05/03/19) Home Medications Scheduled Beclomethasone Dipropionate (Qvar Redihaler) 80 Mcg/Act Hfa.aeroba, 2 PUFFS INH BID, (Reported) Citalopram Hydrobromide (Citalopram HBr) 20 Mg Tablet, 20 MG PO DAILY, (Reported) Ferrous Gluconate (Ferrous Gluconate) 324 Mg Tablet, 324 MG PO BID, (Reported) Folic Acid (Folic Acid) 1 Mg Tablet, 1 MG PO DAILY, #90 (Reported) Hydrochlorothiazide (Hydrochlorothiazide) 12.5 Mg Capsule, 12.5 MG PO DAILY, (Reported) Ketotifen Fumarate (Eye Itch Relief) 5 Ml Drops, 0.025 % OU BID, (Reported) Latanoprost (Xalatan) 0.005% 2.5ML Drops, 1 DROP OU QHS, (Reported) Lisinopril (Lisinopril) 40 Mg Tablet, 40 MG PO DAILY, (Reported) Potassium Citrate (Potassium Citrate 10MEQ (Urocit-K)) 10 Meq Tablet.er, 1,080 MG PO BID, (Reported) 1080MG = 10MEQ Ropinirole HCl (Ropinirole HCl) 1 Mg Tablet, 1 MG PO QHS, (Reported) CRISTIANO CAMERON DO May 21, 2019 19:18
[2019-05-21] MEDS ORDERED: DEXTROSE 50% 50 ML SYRINGE IV PRN (19:30)
[2019-05-21] MEDS ORDERED: GLUCAGON FOR INJ 1 MG VIAL (J1610) SC PRN (19:30)
[2019-05-21] MEDS ORDERED: GLUCOSE 4 GM CHEW TABLET PO PRN (19:30)
[2019-05-21] MEDS: OMEPRAZOLE 20 MG CAP PO SCH (19:53)
[2019-05-21 19:54] VITALS: BP 178/100
[2019-05-21] MEDS ORDERED: PERCOCET 5MG/325MG TAB PO PRN (20:45)
[2019-05-21] MEDS ORDERED: HumaLOG INSULIN (NovoLOG) PER UNIT SC SCH (21:00)
[2019-05-21 21:29] VITALS: BP 138/97
[2019-05-21] MEDS: ceFAZolin SOD 2 GM in IV 1 EA IV SCH (22:10)
[2019-05-21] MEDS: PERCOCET 5MG/325MG TAB PO PRN (22:11)
[2019-05-21 22:15] VITALS: BP 140/96
[2019-05-21 23:15] VITALS: BP 138/94
[2019-05-22 02:07] VITALS: BP 140/96
[2019-05-22] MEDS: ceFAZolin SOD 2 GM in IV 1 EA IV SCH ×2 (05:16→11:13)
[2019-05-22] MEDS: PERCOCET 5MG/325MG TAB PO PRN ×2 (05:23→12:13)
[2019-05-22 05:50] VITALS: BP 140/78
[2019-05-22] MEDS: LR 1,000 ML IV SCH (06:00)
[2019-05-22] MEDS ORDERED: XARE10TA PO (06:22)
[2019-05-22] MEDS ORDERED: PERC5TAB12 PO (06:22)
[2019-05-22 06:58] LABS: HEMATOCRIT 33.7 % (36.0-47.0); HEMOGLOBIN 10.8 g/dl (12.0-15.5); MEAN CORPUSCULAR HEMOGLOBIN 29.7 pg (27.0-33.0); MEAN CORPUSCULAR VOLUME 92.6 fl (80.0-96.0); PLATELET COUNT, AUTOMATED 211 10^3/uL (150-450); RED BLOOD COUNT 3.64 10^6/uL (4.00-5.40)
[2019-05-22 07:07] LABS: INR 1.06; PROTHROMBIN TIME 13.5 SECONDS (11.8-14.0)
[2019-05-22 07:19] LABS: BLOOD UREA NITROGEN 14 MG/DL (7-18); CALCIUM LEVEL 9.1 MG/DL (8.5-10.1); CARBON DIOXIDE LEVEL 26 MEQ/L (21-32); CHLORIDE LEVEL 107 MEQ/L (98-107); CREATININE FOR GFR 0.75 MG/DL (0.55-1.30); GLOMERULAR FILTRATION RATE > 60.0 (>51); GLUCOSE, FASTING 132 MG/DL (70-100); POTASSIUM SERUM 3.9 MEQ/L (3.5-5.1); SODIUM LEVEL 141 MEQ/L (136-145)
[2019-05-22] MEDS: OMEPRAZOLE 20 MG CAP PO SCH (07:57)
[2019-05-22] MEDS: HumaLOG INSULIN (NovoLOG) PER UNIT SC SCH ×2 (07:59→12:15)
[2019-05-22] MEDS ORDERED: lisinopriL 40 MG TAB PO SCH (09:00)
[2019-05-22] MEDS ORDERED: MIRALAX *UNIT DOSE* 17GM PACKET PO SCH (09:00)
[2019-05-22] MEDS ORDERED: MOM 30ML SUSPENSION UDC PO SCH (09:00)
[2019-05-22] MEDS ORDERED: hydroCHLOROthiazide 12.5 MG CAPSULE PO SCH (09:00)
[2019-05-22] MEDS ORDERED: SENOKOT S TAB PO SCH (09:00)
[2019-05-22] MEDS ORDERED: RIVAROXABAN 10 MG TAB (XARELTO) PO SCH (18:00)
[2019-05-23] MEDS ORDERED: FLUBLOK(EGG FREE)(QUAD)INFLUENZA VACC 0.5ML SYRINGE (90682)18YRS&OLDER IM ONE (09:00)
--- NOTE | 2019-05-23 12:23 | RO ---
DATE OF PROCEDURE: 05/21/2019 PREPROCEDURE DIAGNOSIS: Degenerative arthritis of the left knee. POSTPROCEDURE DIAGNOSIS: Same PROCEDURE: Left total knee arthroplasty using a 4 cruciate-retaining femoral component, size 4 tibial component with a 5 mm rotating platform polyethylene insert and a 32 mm polyethylene button. Prosthesis was made by [employer]. It was an Att[employer] knee. SURGEON: Dr. Santana Mendez SITE HEAD: Mr. Rashid Champagne ANESTHESIA: Spinal with left femoral nerve block. COMPLICATIONS: None. ESTIMATED BLOOD LOSS: 20 mL. SPECIMENS: Joint surface. DESCRIPTION OF PROCEDURE: Antibiotics were given intravenously preoperatively and successful left femoral nerve block, and then a spinal anesthetic was induced. Tourniquet was placed on the left upper thigh and not inflated. The left lower extremity was carefully prepped and draped in the usual sterile fashion and after appropriate time out, the tourniquet was inflated. A longitudinal incision was made for a medial parapatellar approach to the knee. Bovie cautery was used to coagulate crossing vessels. Medial parapatellar arthrotomy was performed. Subperiosteal dissection around the proximal medial and lateral tibial plateau was then performed. Then, we everted the patella and flexed the knee. Anterior cruciate ligament (ACL) was debrided. Drill placed down the center of the femoral canal followed by the intramedullary logan, the distal femoral cutting jig set at 5-degree valgus cut at 9 mm resection level for a left knee. Block was pinned into position, distal femoral cut was performed. The AP sizing jig measured for a size 4 femoral component. Three degrees of external rotation were dialed in, pins placed, and then the 4-in-1 block was applied. Anterior, posterior, chamfer cuts were then performed, osteotomy jig was applied and the sulcus cut performed. Proximal tibia was exposed, and using the extramedullary alignment jig, we estimated being parallel to the mechanical axis of the tibia, referencing off the medial tibial condyle at 4 mm resection level. Block was pinned into position. Secondary check with the extramedullary logan confirmed we appeared to be parallel to the mechanical axis. Thus, the osteotomy was performed. Then, the lamina coal miner was placed medially, and we performed a completion lateral meniscectomy, debridement of the posterolateral osteophytes. We then placed the lamina coal miner laterally and performed a completion medial meniscectomy and debridement of the posteromedial osteophytes. Spacer block placed, 6 mm seemed to be symmetric with good stability to varus/valgus stress testing. It was a little tight, however, both in flexion and extension. We eventually settled on a 5 mm insert. We exposed the proximal tibia, sized for a size #4 tibial tray, which was pinned into position, followed by the reamer and broach. Then, the trial was placed, followed by the trial femoral component, brought the knee into extension, everted the patella, performed patellar osteotomy. Drilled the lug holes and the trial was applied and then we brought the knee through a range of motion. The patellofemoral tracking was anatomic. There was good stability but the 5 mm fit the best. We then drilled the lug holes for the femur, removed all the trial components, placed Exparel in the subperiosteal tissues around the distal femur and the proximal tibia. Then, Mr. Rashid Champagne mixed the cement on the back table as I prepared the bony surfaces for cementing with a copious amount of pulsatile lavage irrigant solution. He was also critical to the success of this difficult surgery by helping with appropriate soft tissue retraction, helped to close the wound, helped to mix the cement, helped to prepare the patient, amongst many other tasks to allow me to perform the operation smoothly, efficiently, and safely. We then cemented the tibial tray, removed the excess cement, and placed the polyethylene, then cemented the femoral component, removed the excess cement, brought the knee out in extension, cemented the patellar button, removed the excess cement, and held it with a clamp with the knee in full extension until the cement hardened. As we were awaiting this, we copiously pulsatile lavage irrigated out the knee joint once again. Then, placed tranexamic acid in the knee joint, then closed the arthrotomy with two #1 PDS sutures at the apex, one in the medial parapatellar area, then a running double-armed #1 Stratafix was used to close the capsule. Then, we released the tourniquet, irrigated between layers, closed the deep subdermal tissues with interrupted #2-0 PDS sutures, skin was closed with cookie, covered by an Optifoam dry sterile bulky dressing. She was then transferred to the recovery room in stable condition. There were no intraoperative complications. EDISON
== END 2019-05-22 12:45 | disposition home health service (06) | DRG 302 ==
LOC: M OR 10:30 → M MS5PR 17:53
PROVIDERS: ADMIT Orthopaedic Surgery; ATTEND Orthopaedic Surgery
PROC: 0SRD0J9 Replacement of Left Knee Joint with Synthetic Substitute, Cemented, Open Approach (ICD-10-PCS; principal; 2019-05-21 14:35)
DX: M17.12 Unilateral primary osteoarthritis, left knee (principal); Z68.41 Body mass index [BMI] 40.0-44.9, adult; I10 Essential (primary) hypertension; E66.9 Obesity, unspecified; Z88.5 Allergy status to narcotic agent; Z91.018 Allergy to other foods; Z91.010 Allergy to peanuts; Z88.8 Allergy status to other drugs, medicaments and biological substances; Z79.899 Other long term (current) drug therapy; E55.9 Vitamin D deficiency, unspecified; E11.9 Type 2 diabetes mellitus without complications; G47.33 Obstructive sleep apnea (adult) (pediatric); E78.5 Hyperlipidemia, unspecified; J45.909 Unspecified asthma, uncomplicated; G25.81 Restless legs syndrome; K21.9 Gastro-esophageal reflux disease without esophagitis; E53.9 Vitamin B deficiency, unspecified; J44.9 Chronic obstructive pulmonary disease, unspecified; K30 Functional dyspepsia

== ENCOUNTER → 2019-06-23 | Outpatient (CLI) | payer OTHER ==
[~2019-06-23] MED LIST changes: +XARE10TA PO; -fentaNYL 100 MCG/2 ML INJECTION (J3010) IV SCH
--- NOTE | 2019-06-24 02:12 | ECWPNPC ---
PATIENT NAME: LAURYN DANIEL : 1965 GENDER: FEMALE VISIT DATE: 06/23/2019 DISCHARGE DATE: 06/23/19 1110 VISIT LOCKED DATE TIME: PHYSICIAN: MANISHA RODRIGUEZ RESOURCE: MANISHA RODRIGUEZ REASON FOR APPOINTMENT 1. 3 MONTHS HISTORY OF PRESENT ILLNESS HISTORY OF PRESENT ILLNESS: HERE FOR ROUTINE FOLLOW-UP AND MANAGEMENT OF CHRONIC LOW BACK PAIN. HAD LEFT KNEE REPLACEMENTS 1 MONTH AGO. DOING WELL. REPORTING INTERMITTENT LOW BACK PAIN. RATING PAIN LEVEL A 1/10 VAS. PAIN THE PATIENT DESCRIBES THE PAIN... FALL RISK SCREENING: SCREENING :NO FALLS REPORTED IN THE LAST YEAR CURRENT MEDICATIONS TAKING CITALOPRAM HYDROBROMIDE 20 MG TABLET 1 TABLET ORALLY ONCE A DAY TAKING ROPINIROLE HCL 1 MG TABLET 1 TABLET 1 TO 3 HOURS BEFORE BEDTIME ORALLY ONCE A DAY TAKING SM EYE ITCH RELIEF 0.025 % SOLUTION 1 DROP INTO AFFECTED EYE OPHTHALMIC TWICE A DAY TAKING FERROUS GLUCONATE 325 MG TABLET ORALLY BID TAKING FOLIC ACID 1 MG TABLET 1 TABLET ORALLY ONCE A DAY TAKING MULTIVITAMIN ADULTS - TABLET 2 TAB ORALLY DAILY TAKING LATANOPROST 0.005 % SOLUTION 1 DROP INTO AFFECTED EYE OPHTHALMIC BID TAKING POTASSIUM CITRATE - GRANULES DIRECTED TAKING ASMANEX HFA 100 MCG/ACT AEROSOL 2 PUFFS INHALATION TWICE A DAY TAKING LISINOPRIL 20 MG TABLET 1 TABLET ORALLY ONCE A DAY NOT-TAKING OMEPRAZOLE 20 MG CAPSULE DELAYED RELEASE 1 CAPSULE ORALLY ONCE A DAY NOT-TAKING PROTONIX 40 MG TABLET DELAYED RELEASE 1 TABLET ORALLY ONCE A DAY NOT-TAKING ZOFRAN 4 MG TABLET 1 TABLET ORALLY ONCE A DAY NOT-TAKING LISINOPRIL 5 MG TABLET 1 TABLET ORALLY ONCE A DAY NOT-TAKING VITAMIN D-3 1000 UNIT CAPSULE 1 CAPSULE ORALLY ONCE A DAY NOT-TAKING TYLENOL 325 MG TABLET 2 TABLET NEEDED ORALLY BEFORE BEDTIME NOT-TAKING TIZANIDINE HCL 2 MG TABLET 1 TABLET NEEDED ORALLY THREE TIMES A DAY, NOTES: UNSURE OF DOSE, ONLY TAKES AT BEDTIME NOT-TAKING KETOTIFEN FUMARATE 0.025 % SOLUTION 1 DROP INTO AFFECTED EYE OPHTHALMIC TWICE A DAY NOT-TAKING REQUIP 1 MG TABLET ORALLY ONCE A DAY, NOTES: [id number] MEDICATION LIST REVIEWED AND RECONCILED WITH THE PATIENT PAST MEDICAL HISTORY BACK PAIN RESTLESS LEG HYPOGLYCEMIA ANEMIA ASTHMA ALLERGIES CODEINE SULFATE: HYPOTENSION COCONUT: VOMIT NUTS: VOMITING - ALLERGY PEANUT BUTTER : VOILENT VOMITING MILK: NAUSEA PEANUT (DIAGNOSTIC) LACTOSE: SIDE EFFECTS AMOXICILLIN SURGICAL HISTORY CARPAL TUNNEL RIGHT WRITS 2000 ARTEIAL JAINISM BIOPSY 1996 TUBAL LIGATION 1989 CHOLESCYSTECTOMY 200 RIGHT SHOULDER ROTATER CUFF 2013 HYSTERECTOMY 1993 GASTRIC BYPASS 2016 LEFT KNEE REPLACEMENT 05/21/2019 FAMILY HISTORY FATHER: , DIAGNOSED WITH DIABETES, HYPERTENSION, UNSPECIFIED HEART DISEASE, OTHER SPECIFIED CONDITIONS INFLUENCING HEALTH STATUS MOTHER: ALIVE, OTHER SPECIFIED CONDITIONS INFLUENCING HEALTH STATUS 1 BROTHER(S) - HEALTHY. 2 SON(S) - HEALTHY. SOCIAL HISTORY GENERAL: TOBACCO USE ARE YOU A:NONSMOKER PAIN CLINIC PFS, CLERGY, PUBLIC HEALTH REFERRALS PFS REFERRAL NEEDED?NO CLERGY REFERRAL NEEDED?NO PUBLIC HEALTH REFERRAL NEEDED?NO WAS THE PROVIDER NOTIFIED OF ANY PERTINENT INFO?YES HAS THE PATIENT BEEN EDUCATED REGARDING HIS/HER PLAN OF CARE?YES HAS THE PATIENT BEEN EDUCATED REGARDING PAIN, THE RISK FOR PAIN, THE IMPORTANCE OF EFFECTIVE PAIN MANAGEMENT, AND THE PAIN ASSESSMENT PROCESS?YES LATEX QUESTIONNAIRE LATEX ALLERGY : HAVE YOU EVER DEVELOPED ANY TYPE OF REACTION AFTER HANDLING LATEX PRODUCTS SUCH RUBBER GLOVES, CONDOMS, DIAPHRAGMS, BALLOONS, SOCKS, OR UNDERWEAR?NO LATEX ALLERGY : HAVE YOU EVER DEVELOPED ANY TYPE OF REACTION DURING OR AFTER DENTAL APPOINTMENT, VAGINAL/RECTAL EXAMINATION, SURGICAL PROCEDURE, OR ANY OTHER EXPOSURE?NO LATEX RISK : HAVE YOU EVER HAD ANY DIFFICULTY BREATHING OR HIVES AFTER EATING OR HANDLING ANY FRUITS, OR VEGETABLES; SUCH KIWI, BANANAS, STONE FRUITS, OR CHESTNUTSNO LATEX RISK : DO YOU HAVE A PREVIOUS PERSONAL HISTORY OF MORE THAN NINE SURGERIES, SPINA BIFIDA, OR REPEATED CATHERIZATIONS? NO LATEX RISK : ARE YOU FREQUENTLY EXPOSED TO LATEX PRODUCTS IN YOUR OCCUPATION?NO DATE ASKED : 03/10/2019 ADVANCE DIRECTIVE ADVANCE DIRECTIVE DISCUSSED WITH PATIENT:YES 06/23/2019 PATIENT HAS NO ADVANCED DIRECTIVES AND DECLINES HCP INFORMATION AND ASSISTANCE WITH FORM AT THIS TIME. JS PROTESTANT [id number] NONE LANGUAGE LANGUAGES SPOKEN:SOMALI NEW PATIENT PAIN DIARY TODAY'S VISITNOTES FROM 0-10, WHAT LEVEL IS YOUR PAIN TODAY?8.5 ALCOHOL SCREENING DID YOU HAVE A DRINK CONTAINING ALCOHOL IN THE PAST YEAR?YES HOW OFTEN DID YOU HAVE SIX OR MORE DRINKS ON ONE OCCASION IN THE PAST YEAR?NEVER (0 POINTS) HOW MANY DRINKS DID YOU HAVE ON A TYPICAL DAY WHEN YOU WERE DRINKING IN THE PAST YEAR?1 OR 2 (0 POINTS) HOW OFTEN DID YOU HAVE A DRINK CONTAINING ALCOHOL IN THE PAST YEAR?MONTHLY OR LESS (1 POINT) POINTS1 INTERPRETATIONNEGATIVE RECREATIONAL DRUG USE DRUG USE?NO LEARNING BARRIERS / SPECIAL NEEDS BARRIERS TO LEARNING?NO HEARING IMPAIRED?NO VISION IMPAIRED?YES COGNITIVELY IMPAIRED?NO :CORRECTIVE LENSES READINESS TO LEARN?YES LEARNING PREFERENCES?NO LEARNING CAPABILITIES PRESENT?YES EMOTIONAL BARRIERS?NO SPECIAL DEVICES?NO SEAMAN NEEDED?NO REVIEWED WITH PATIENT 03/13/18 1037 JSREVEIWED WITH PATIENT 03/19/18 0947 JSREVIEWED WITH PT 04/13/18 0853 BVREVIEWED WITH PT 11/05/18 0856 BVREVIEWED WITH PATIENT 06/23/2019 1039 JS. HOSPITALIZATION/MAJOR DIAGNOSTIC PROCEDURE SURGERY RELATED REVIEW OF SYSTEMS REVIEWED BY: PROVIDER: MANISHA TSE . CONSTITUTIONAL: ANY CHANGE IN YOUR MEDICAL CONDITION? NO . CHILLS NO . FEVER NO . INFECTION: DO YOU HAVE NEW INFECTIONS? NO . DO YOU HAVE HISTORY OF MRSA? NO . MUSCULOSKELETAL: ANY NEW PATTERNS OF PAIN OR NUMBNESS? NO . GASTROENTEROLOGY: ANY NEW CHANGE IN BOWEL CONTROL? NO . GENITOURINARY: ANY NEW CHANGE IN BLADDER CONTROL? NO . IS THERE A CHANCE YOU COULD BE ? NO . HEMATOLOGY/LYMPH: DO YOU TAKE ANY BLOOD THINNERS? (FOR EXAMPLE- COUMADIN, PLAVIX, AGGRENOX, PLATEL, PRADAXA, OR XARELTO) NO . WHEN WAS YOUR LAST DOSE? DATE: TIME: . NEUROLOGY: HAVE YOU FALLEN IN THE PAST 12 MONTHS? YES, STATES FALL PRIOR TO LAST VISIT, DISCUSSSED AT LAST VISIT . ANY NEW EXTREMITY NUMBNESS OR WEAKNESS? YES, STATES NUMBNESS TO LEFT THIGH AND WEAKNESS TO THAT LEG SINCE KNEE SURGERY . CARDIOLOGY: DO YOU HAVE A PACEMAKER OR DEFIBRILLATOR? NO . RESPIRATORY: HAVE YOU BEEN SICK IN THE PAST WEEK? NO . FEVER NO . FLU LIKE SYMPTOMS? NO . COUGH NO . INTEGUMENTARY: DO YOU HAVE ANY RASHES OR OPEN SORES? NO . ALLERGIC/IMMUNO: ARE YOU ALLERGIC TO IV DYE? NO . ANY NEW ALLERGIES? NO . PSYCHIATRIC: DO YOU HAVE THOUGHTS OF HURTING YOURSELF OR SOMEONE ELSE? NO . ARE YOU ABUSED, NEGLECTED, OR IN AN UNSAFE ENVIRONMENT? NO . ENDOCRINOLOGY: ARE YOU DIABETIC? NO, HYPOGLYCEMIA . OTHER: DO YOU NEED ANY PRESCRIPTIONS? NO . IF YES, PLEASE LIST: ____ . ANY NEW PROBLEMS WITH YOUR MEDICATIONS? NO . WHEN DID YOU LAST EAT? ____ . WHEN DID YOU LAST DRINK? ____ . WHAT DID YOU LAST DRINK? ____ . NAME OF PERSON DRIVING YOU HOME? ____ . DO YOU HAVE ANY OTHER QUESTIONS OR CONCERNS NO . VITAL SIGNS WT 216.2 LBS, HT 61 IN, BMI 40.85 INDEX, BP 133/70 MM HG, HR 90 /MIN, RR 18 /MIN, TEMP 98.5 F, OXYGEN SAT % 97%, SAFE IN ENV? (Y/N) YES, REVIEWED BY: JEREMIAH. EXAMINATION GENERAL EXAMINATION: GENERAL AWAKE,ALERT. PSYCH AFFECT NORMAL . LUNGS: LUNG ZHENG ARE CLEAR TO AUSCULTATION BILATERALLY. GOOD MOVEMENT OF AIR . HEART: S1, S2 IN A REGULAR RATE AND RHYTHM. NO SIGNIFICANT MURMURS, RUBS OR GALLOPS NOTED . ASSESSMENTS SACROILIITIS, NOT ELSEWHERE CLASSIFIED - M46.1 (PRIMARY) TREATMENT SACROILIITIS, NOT ELSEWHERE CLASSIFIED NOTES: CONTINUE HOME EXERCISE AND STRETCHING. PROCEDURE CODES FA211 ESTABILISHED PATIENT [facility] CHARGE DISPOSITION & COMMUNICATION FOLLOW UP 3 MONTHS (REASON: LOW BACK PAIN) ELECTRONICALLY SIGNED BY DEDRICK FORREST ON 06/23/2019 AT 12:14 PM EST DISCLAIMER : THIS IS A VISIT SUMMARY EXTRACTED FROM THE [employer] CHART. IT IS NOT A COPY OF THE [employer] PROGRESS NOTE. EDISON
== END ==
LOC: M PAIN 10:15
PROVIDERS: ATTEND Nurse Practitioner Family
DX: M46.1 Sacroiliitis, not elsewhere classified (principal); G89.29 Other chronic pain; G25.81 Restless legs syndrome; D50.9 Iron deficiency anemia, unspecified; J45.909 Unspecified asthma, uncomplicated; Z98.84 Bariatric surgery status; Z96.652 Presence of left artificial knee joint; Z88.1 Allergy status to other antibiotic agents; Z88.5 Allergy status to narcotic agent; Z91.010 Allergy to peanuts; Z91.011 Allergy to milk products; Z91.018 Allergy to other foods; E66.01 Morbid (severe) obesity due to excess calories; Z68.41 Body mass index [BMI] 40.0-44.9, adult; Z79.899 Other long term (current) drug therapy

== ENCOUNTER → 2019-09-22 | Outpatient (CLI) | payer OTHER ==
[~2019-09-22] MED LIST changes: -MONT10TA2 PO; +MONT10TA4 PO; -ROPI1TAB PO; +ROPI1TAB3 PO
--- NOTE | 2019-09-24 04:28 | ECWPNPC ---
PATIENT NAME: LAURYN DANIEL : 1965 GENDER: FEMALE VISIT DATE: 09/22/2019 DISCHARGE DATE: 09/22/19 1042 VISIT LOCKED DATE TIME: PHYSICIAN: MANISHA RODRIGUEZ RESOURCE: MANISHA RODRIGUEZ REASON FOR APPOINTMENT 1. 3 MONTH FOLLOW UP HISTORY OF PRESENT ILLNESS HISTORY OF PRESENT ILLNESS: HERE FOR FOLLOW-UP OF CHRONIC LOW BACK PAIN. RATING PAIN LEVEL A 5/10 VAS. PAIN IS LOCATED ACROSS LOW BACK WITH RADIATION INTO THE BUTTOCK AREA. HAS RESPONDED WELL TO SACROILIAC JOINT BLOCK IN THE PAST. DISCUSSED MEDICATION AND TREATMENT OPTIONS. PAIN THE PATIENT DESCRIBES THE PAIN... FALL RISK SCREENING: SCREENING :NO FALLS REPORTED IN THE LAST YEAR CURRENT MEDICATIONS TAKING CITALOPRAM HYDROBROMIDE 20 MG TABLET 1 TABLET ORALLY ONCE A DAY TAKING ROPINIROLE HCL 1 MG TABLET 1 TABLET 1 TO 3 HOURS BEFORE BEDTIME ORALLY ONCE A DAY TAKING SM EYE ITCH RELIEF 0.025 % SOLUTION 1 DROP INTO AFFECTED EYE OPHTHALMIC TWICE A DAY TAKING FERROUS GLUCONATE 325 MG TABLET ORALLY BID TAKING FOLIC ACID 1 MG TABLET 1 TABLET ORALLY ONCE A DAY TAKING MULTIVITAMIN ADULTS - TABLET 2 TAB ORALLY DAILY TAKING LATANOPROST 0.005 % SOLUTION 1 DROP INTO AFFECTED EYE OPHTHALMIC BID TAKING POTASSIUM CITRATE - GRANULES DIRECTED TAKING ASMANEX HFA 100 MCG/ACT AEROSOL 2 PUFFS INHALATION TWICE A DAY TAKING LISINOPRIL 20 MG TABLET 1 TABLET ORALLY ONCE A DAY TAKING HYDROCHLOROTHIAZIDE 12.5 MG TABLET 1 TABLET IN THE MORNING ORALLY ONCE A DAY NOT-TAKING OMEPRAZOLE 20 MG CAPSULE DELAYED RELEASE 1 CAPSULE ORALLY ONCE A DAY NOT-TAKING PROTONIX 40 MG TABLET DELAYED RELEASE 1 TABLET ORALLY ONCE A DAY NOT-TAKING ZOFRAN 4 MG TABLET 1 TABLET ORALLY ONCE A DAY NOT-TAKING LISINOPRIL 5 MG TABLET 1 TABLET ORALLY ONCE A DAY NOT-TAKING VITAMIN D-3 1000 UNIT CAPSULE 1 CAPSULE ORALLY ONCE A DAY NOT-TAKING TYLENOL 325 MG TABLET 2 TABLET NEEDED ORALLY BEFORE BEDTIME NOT-TAKING TIZANIDINE HCL 2 MG TABLET 1 TABLET NEEDED ORALLY THREE TIMES A DAY, NOTES: UNSURE OF DOSE, ONLY TAKES AT BEDTIME NOT-TAKING KETOTIFEN FUMARATE 0.025 % SOLUTION 1 DROP INTO AFFECTED EYE OPHTHALMIC TWICE A DAY NOT-TAKING REQUIP 1 MG TABLET ORALLY ONCE A DAY, NOTES: [id number] MEDICATION LIST REVIEWED AND RECONCILED WITH THE PATIENT PAST MEDICAL HISTORY BACK PAIN RESTLESS LEG HYPOGLYCEMIA ANEMIA ASTHMA ALLERGIES CODEINE SULFATE: HYPOTENSION COCONUT: VOMIT NUTS: VOMITING - ALLERGY PEANUT BUTTER : VOILENT VOMITING MILK: NAUSEA PEANUT (DIAGNOSTIC) LACTOSE: SIDE EFFECTS AMOXICILLIN SURGICAL HISTORY CARPAL TUNNEL RIGHT WRITS 2000 ARTEIAL BAPTIST BIOPSY 1996 TUBAL LIGATION 1989 CHOLESCYSTECTOMY 200 RIGHT SHOULDER ROTATER CUFF 2014 HYSTERECTOMY 1994 GASTRIC BYPASS 2016 LEFT KNEE REPLACEMENT 05/21/2019 FAMILY HISTORY FATHER: , DIAGNOSED WITH HYPERTENSION, UNSPECIFIED HEART DISEASE, OTHER SPECIFIED CONDITIONS INFLUENCING HEALTH STATUS, DIABETES MOTHER: ALIVE, OTHER SPECIFIED CONDITIONS INFLUENCING HEALTH STATUS 1 BROTHER(S) - HEALTHY. 2 SON(S) - HEALTHY. SOCIAL HISTORY GENERAL: TOBACCO USE ARE YOU A:NONSMOKER LATEX QUESTIONNAIRE LATEX ALLERGY : HAVE YOU EVER DEVELOPED ANY TYPE OF REACTION AFTER HANDLING LATEX PRODUCTS SUCH RUBBER GLOVES, CONDOMS, DIAPHRAGMS, BALLOONS, SOCKS, OR UNDERWEAR?NO LATEX ALLERGY : HAVE YOU EVER DEVELOPED ANY TYPE OF REACTION DURING OR AFTER DENTAL APPOINTMENT, VAGINAL/RECTAL EXAMINATION, SURGICAL PROCEDURE, OR ANY OTHER EXPOSURE?NO LATEX RISK : HAVE YOU EVER HAD ANY DIFFICULTY BREATHING OR HIVES AFTER EATING OR HANDLING ANY FRUITS, OR VEGETABLES; SUCH KIWI, BANANAS, STONE FRUITS, OR CHESTNUTSNO LATEX RISK : DO YOU HAVE A PREVIOUS PERSONAL HISTORY OF MORE THAN NINE SURGERIES, SPINA BIFIDA, OR REPEATED CATHERIZATIONS? NO LATEX RISK : ARE YOU FREQUENTLY EXPOSED TO LATEX PRODUCTS IN YOUR OCCUPATION?NO DATE ASKED : 09/22/2019 ALCOHOL SCREENING DID YOU HAVE A DRINK CONTAINING ALCOHOL IN THE PAST YEAR?YES HOW OFTEN DID YOU HAVE SIX OR MORE DRINKS ON ONE OCCASION IN THE PAST YEAR?NEVER (0 POINTS) HOW MANY DRINKS DID YOU HAVE ON A TYPICAL DAY WHEN YOU WERE DRINKING IN THE PAST YEAR?1 OR 2 (0 POINTS) HOW OFTEN DID YOU HAVE A DRINK CONTAINING ALCOHOL IN THE PAST YEAR?MONTHLY OR LESS (1 POINT) POINTS1 INTERPRETATIONNEGATIVE RECREATIONAL DRUG USE DRUG USE?NO RASTAFARI [id number] NONE LANGUAGE LANGUAGES SPOKEN:BHUTANESE LEARNING BARRIERS / SPECIAL NEEDS BARRIERS TO LEARNING?NO HEARING IMPAIRED?NO VISION IMPAIRED?YES COGNITIVELY IMPAIRED?NO :CORRECTIVE LENSES READINESS TO LEARN?YES LEARNING PREFERENCES?NO LEARNING CAPABILITIES PRESENT?YES EMOTIONAL BARRIERS?NO SPECIAL DEVICES?NO ALUMINUM SIDING INSTALLER NEEDED?NO NEW PATIENT PAIN DIARY TODAY'S VISITNOTES 09/22/2019 PATIENT DESCRIBES PAIN :ACHING, HAVE IT ALL THE TIME, SHOOTING FROM 0-10, WHAT LEVEL IS YOUR PAIN TODAY?4 PAIN CLINIC PFS, CLERGY, PUBLIC HEALTH REFERRALS PFS REFERRAL NEEDED?NO CLERGY REFERRAL NEEDED?NO PUBLIC HEALTH REFERRAL NEEDED?NO WAS THE PROVIDER NOTIFIED OF ANY PERTINENT INFO?YES HAS THE PATIENT BEEN EDUCATED REGARDING HIS/HER PLAN OF CARE?YES HAS THE PATIENT BEEN EDUCATED REGARDING PAIN, THE RISK FOR PAIN, THE IMPORTANCE OF EFFECTIVE PAIN MANAGEMENT, AND THE PAIN ASSESSMENT PROCESS?YES ADVANCE DIRECTIVE ADVANCE DIRECTIVE DISCUSSED WITH PATIENT:YES 09/22/2019 PATIENT HAS NO ADVANCED DIRECTIVES AND DECLINES HCP INFORMATION AND ASSISTANCE WITH FORM AT THIS TIME. JS HOSPITALIZATION/MAJOR DIAGNOSTIC PROCEDURE SURGERY RELATED REVIEW OF SYSTEMS REVIEWED BY: PROVIDER: MANISHA TSE . CONSTITUTIONAL: ANY CHANGE IN YOUR MEDICAL CONDITION? NO . CHILLS NO . FEVER NO . INFECTION: DO YOU HAVE NEW INFECTIONS? NO . DO YOU HAVE HISTORY OF MRSA? NO . MUSCULOSKELETAL: ANY NEW PATTERNS OF PAIN OR NUMBNESS? YES, WORSENING HEADACHES . GASTROENTEROLOGY: ANY NEW CHANGE IN BOWEL CONTROL? NO . GENITOURINARY: ANY NEW CHANGE IN BLADDER CONTROL? NO . IS THERE A CHANCE YOU COULD BE ? NO . HEMATOLOGY/LYMPH: DO YOU TAKE ANY BLOOD THINNERS? (FOR EXAMPLE- COUMADIN, PLAVIX, AGGRENOX, PLATEL, PRADAXA, OR XARELTO) NO . WHEN WAS YOUR LAST DOSE? DATE: TIME: . NEUROLOGY: HAVE YOU FALLEN IN THE PAST 12 MONTHS? NO . ANY NEW EXTREMITY NUMBNESS OR WEAKNESS? NO . CARDIOLOGY: DO YOU HAVE A PACEMAKER OR DEFIBRILLATOR? NO . RESPIRATORY: HAVE YOU BEEN SICK IN THE PAST WEEK? NO . FEVER NO . FLU LIKE SYMPTOMS? NO . COUGH NO . INTEGUMENTARY: DO YOU HAVE ANY RASHES OR OPEN SORES? NO . ALLERGIC/IMMUNO: ARE YOU ALLERGIC TO IV DYE? NO . ANY NEW ALLERGIES? NO . PSYCHIATRIC: DO YOU HAVE THOUGHTS OF HURTING YOURSELF OR SOMEONE ELSE? NO . ARE YOU ABUSED, NEGLECTED, OR IN AN UNSAFE ENVIRONMENT? NO . ENDOCRINOLOGY: ARE YOU DIABETIC? NO . OTHER: DO YOU NEED ANY PRESCRIPTIONS? NO . IF YES, PLEASE LIST: ____ . ANY NEW PROBLEMS WITH YOUR MEDICATIONS? NO . WHEN DID YOU LAST EAT? ____ . WHEN DID YOU LAST DRINK? ____ . WHAT DID YOU LAST DRINK? ____ . NAME OF PERSON DRIVING YOU HOME? ____ . DO YOU HAVE ANY OTHER QUESTIONS OR CONCERNS NO . VITAL SIGNS WT 224.2 LBS, HT 61 IN, BMI 42.36 INDEX, BP 197/89 MM HG, REPEAT BP 162/82 MANUAL, HR 67 /MIN, RR 18 /MIN, TEMP 96.9 F, OXYGEN SAT % 99%, SAFE IN ENV? (Y/N) YES, NA INITIALS AW 0958, REVIEWED BY: JEREMIAH. EXAMINATION GENERAL EXAMINATION: GENERAL ALERT,NO DISTRESS . PSYCH AFFECT NORMAL . LUNGS: LUNG SOUNDS ARE CLEAR . HEART: HEART RATE REGULAR /PANSYSTOLIC MURMUR NOTED. CARDIAC EVALUATION APRIL 2019 WITHIN NORMAL LIMITS. STATES NO PROPHYLACTIC PREPROCEDURE WAS RECOMMENDED.. MUSCULOSKELETAL: MST 5/5 BILAT. LOWER EXTREMITIES . LUMBAR: TENDERNESS BILAT. SIJ . DIAGNOSTIC TESTS REVIEWEDMRI L/S [id number] . ASSESSMENTS SACROILIITIS, NOT ELSEWHERE CLASSIFIED - M46.1 (PRIMARY) TREATMENT SACROILIITIS, NOT ELSEWHERE CLASSIFIED CLINICAL NOTES: BILAT SIJ. PREVENTIVE MEDICINE PAIN CLINIC TEACHING: PROCEDURE TEACHING REVIEWED INFORMATION ON SACROILIAC JOINT INJECTION PROCEDURE WITH PATIENT. ALSO REVIEWED PRE-RPOCEDURE INSTRUCTIONS. PATIENT VERBALIZED AN UNDERSTANDING. LETITIA ARDON 09/22/2019 11:05:58 AM > . PROCEDURE CODES FA211 ESTABILISHED PATIENT [facility] FACILITY CHARGE DISPOSITION & COMMUNICATION FOLLOW UP POST (REASON: BILAT SIJ) ELECTRONICALLY SIGNED BY DEDRICK FORREST ON 09/23/2019 AT 01:54 PM EDT DISCLAIMER : THIS IS A VISIT SUMMARY EXTRACTED FROM THE [employer] CHART. IT IS NOT A COPY OF THE [employer] PROGRESS NOTE. TORSTEND
== END ==
LOC: M PAIN 10:15
PROVIDERS: ATTEND Nurse Practitioner Family
DX: M46.1 Sacroiliitis, not elsewhere classified (principal); G89.29 Other chronic pain; G25.81 Restless legs syndrome; D50.9 Iron deficiency anemia, unspecified; Z98.84 Bariatric surgery status; Z96.652 Presence of left artificial knee joint; Z88.1 Allergy status to other antibiotic agents; Z88.5 Allergy status to narcotic agent; Z91.010 Allergy to peanuts; Z91.011 Allergy to milk products; Z91.018 Allergy to other foods; E66.01 Morbid (severe) obesity due to excess calories; Z68.41 Body mass index [BMI] 40.0-44.9, adult; Z79.899 Other long term (current) drug therapy

== ENCOUNTER → 2019-10-05 | Outpatient (CLI) | payer OTHER | LOC: M LABSMTC 10:26 | PROVIDERS: ATTEND Anesthesiology | DX: Z11.59 Encounter for screening for other viral diseases (principal) | CPT/HCPCS: C8903; U0003 ==

== ENCOUNTER → 2019-11-02 | Outpatient (CLI) | payer OTHER ==
--- NOTE | 2019-11-02 14:57 | REP ---
REASON: Peripheral vascular disease. RIGHT: The ankle brachial index is 0.9. BOILER CLEANER 123.6 cm/s Triphasic Profunda 76.0 cm/s Biphasic/triphasic SFA proximal 114 cm/s Triphasic SFA mid 89.5 cm/s Triphasic SFA distal 93.0 cm/s Triphasic Popliteal 53.5 cm/s Triphasic EARL proximal 78.4 cm/s Triphasic Tibioperoneal Trunk 43.7 cm /s Triphasic [employer] proximal 32.3 cm/s Triphasic [employer] distal 71.1 cm/s Triphasic EARL distal 47.1 cm/s Triphasic LEFT: The ankle brachial index is 0.9. BOILER CLEANER 125.0 cm/s Triphasic Profunda 57.2 cm/s Biphasic SFA proximal 124.3 cm/s Triphasic SFA mid 102.3 cm/s Triphasic SFA distal 86.8 cm/s Triphasic Popliteal 71.9 cm/s Triphasic EARL proximal 61.3 cm/s Triphasic Tibioperoneal Trunk 44.5cm /s Triphasic [employer] proximal 45.8 cm/s Triphasic [employer] distal 87.3 cm/s Triphasic EARL distal 76.1 cm/s Triphasic The technologist noted minimal plaque bilaterally. Electronically Signed by Chong Meier DO 11/03/2019 10:46 A
== END ==
LOC: M RAD 10:23
PROVIDERS: ATTEND Physician Assistant
DX: I70.213 Atherosclerosis of native arteries of extremities with intermittent claudication, bilateral legs (principal)

== ENCOUNTER → 2019-12-03 | Outpatient (CLI) | payer OTHER ==
[~2019-12-03] MED LIST changes: +AMLO2.5T3 PO; +CITA20TA7 PO; +CYAN1000VL IM; +DRIS50003 PO; -EYE0.0254 OU; +KETO5DRO28 OU; +LISI20TA20 PO; +ONDA-83 PO; +QVAR80AE8 PO; +SM E1DRO2 OU; +TOPI100T9 PO; +TOPI25CA3 PO
== END ==
LOC: M LABSMTC 11:10
PROVIDERS: ATTEND Anesthesiology
DX: Z11.59 Encounter for screening for other viral diseases (principal)
CPT/HCPCS: C9803; U0003

== ENCOUNTER → 2019-12-07 | Outpatient (CLI) | payer OTHER ==
[~2019-12-07] MED LIST changes: +BUPIVACAINE HCL 0.25% 30ML VIAL As Ordered ONE; +ISOVUE-M 300 61% 15ML VIAL As Ordered ONE; +LIDOCAINE 1% SDV 30ML VIAL As Ordered ONE; +TRIAMCINOLONE ACETONIDE SUSP 40 MG/ML VIAL (J3301) As Ordered ONE; +diazePAM 2 MG TAB As Ordered ONE; +oxyCODONE 5MG TAB As Ordered ONE
--- NOTE | 2019-12-08 05:34 | REP ---
C-ARM VIEWS SACROILIAC JOINTS: CLINICAL HISTORY: Pain. Four views of sacroiliac joints performed bilaterally during injection by Dr. Rose. Needle is seen overlying each sacroiliac joint. 19 seconds fluoroscopy time utilized. Electronically Signed by Alfonzo Chand MD 12/08/2019 11:12 P
--- NOTE | 2019-12-10 02:21 | ECWPNPC ---
PATIENT NAME: LAURYN DANIEL : 1965 GENDER: FEMALE VISIT DATE: 12/07/2019 DISCHARGE DATE: 12/07/19 1650 VISIT LOCKED DATE TIME: PHYSICIAN: LUCIANO ESPINOZA MD RESOURCE: LUCIANO ESPINOZA MD REASON FOR APPOINTMENT 1. BILAT JOSE EDUARDO HISTORY OF PRESENT ILLNESS GENERAL: -. FALL RISK SCREENING: SCREENING :TWO OR MORE FALLS WITH INJURY IN THE PAST YEAR PAIN SCREENING: PATIENT HAS A COMPLAINT OF ACUTE OR CHRONIC PAIN :YES LOCATION OF PAIN:LOW BACK INTENSITY OF PAIN (SCALE OF 1 TO 10):8 WHAT DOES YOUR PAIN FEEL LIKE:ACHING, CONTINOUS, SHARP, THROBBING DURATION:CONSTANT PAIN IS INCREASED BY:PROLONGED STANDING, OTHERS PROLONGED SITTING PAIN IS DECREASED BY:OTHERS SOAKING IN WATER NURSING NOTE: -. PAIN CENTER INTAKE QUESTIONS: DO YOU HAVE A HISTORY OF MRSA? :NO DO YOU TAKE A BLOOD THINNERS? :NO DO YOU HAVE ANY BLEEDING DISORDERS? :NO ANY NEW NUMBNESS OR WEAKNESS IN YOUR LEGS OR ARMS? :NO ANY PACEMAKER,DEFIBRILLATOR, OR DORSAL COLUMN STIMULATOR? :NO DO YOU HAVE ANY RASHES OR OPEN SORES? :NO ARE YOU ALLERGIC TO IV DYE? :NO ARE YOU DIABETIC? :NO STATES HAS HYPOGLYCEMIA ANY NEW PROBLEMS WITH YOUR MEDICATIONS? :NO HAVE YOU RECEIVED A VACCINE IN THE PAST 30 DAYS? :NO DO YOU PLAN TO RECEIVE A VACCINE IN THE NEXT 21 DAYS? :NO DO YOU TAKE ANY IMMUNOSUPPRESSIVE MEDICATIONS? :NO ANY HISTORY OF SEIZURES? :NO ANY HISTORY OF CARDIAC ISSUES OR EVENTS? :NO HEART MURMUR- STATES HAS YEARLY ECHOCARDIOGRAM DO YOU HAVE SLEEP APNEA? :YES DO YOU WEAR A CPAP? USES BIPAP ANY RECENT HEAD INJURY? :NO DO YOU HAVE ANY NEW INFECTIONS? :NO IS THERE A CHANCE YOU COULD BE ? :NO ARE YOU BREAST FEEDING? :NO WHEN DID YOU LAST EAT? : -12/06/19 1800 WHEN DID YOU LAST DRINK? : -12/07/19 0700 WHAT DID YOU LAST DRINK? : -WATER NAME OF PERSON DRIVING YOU HOME? : -LESLIE (NEIGHBOR) DO YOU HAVE ANY OTHER QUESTIONS OR CONCERNS? : -NO CURRENT MEDICATIONS TAKING CITALOPRAM HYDROBROMIDE 20 MG TABLET 1 TABLET ORALLY ONCE A DAY, NOTES: 12/06/19 2100 TAKING ROPINIROLE HCL 1 MG TABLET 1 TABLET 1 TO 3 HOURS BEFORE BEDTIME ORALLY ONCE A DAY, NOTES: 12/06/192099 TAKING SM EYE ITCH RELIEF 0.025 % SOLUTION 1 DROP INTO AFFECTED EYE OPHTHALMIC TWICE A DAY, NOTES: 12/06/192099 TAKING FERROUS GLUCONATE 325 MG TABLET ORALLY BID, NOTES: 12/06/192099 TAKING FOLIC ACID 1 MG TABLET 1 TABLET ORALLY ONCE A DAY, NOTES: 12/06/192099 TAKING MULTIVITAMIN ADULTS - TABLET 2 TAB ORALLY DAILY, NOTES: 12/06/192099 TAKING LATANOPROST 0.005 % SOLUTION 1 DROP INTO AFFECTED EYE OPHTHALMIC ONCE A DAY IN THE EVENING, NOTES: 12/06/192099 TAKING LISINOPRIL 40 MG TABLET 1 TABLET ORALLY ONCE A DAY, NOTES: 12/06/192099 TAKING HYDROCHLOROTHIAZIDE 12.5 MG TABLET 1 TABLET IN THE MORNING ORALLY ONCE A DAY, NOTES: 12/06/19729 TAKING VITAMIN D (ERGOCALCIFEROL) 1.25 MG (98177 UT) CAPSULE 1 CAPSULE ORALLY , NOTES: 6 DAYS AGO TAKING TOPIRAMATE 100 MG TABLET 1 TABLET ORALLY ONCE A DAY, NOTES: 12/06/192099 TAKING AMLODIPINE BESYLATE 2.5 MG TABLET 1 TABLET ORALLY ONCE A DAY, NOTES: 12/06/192099 TAKING KETOTIFEN FUMARATE 0.025 % SOLUTION 1 DROP INTO AFFECTED EYE OPHTHALMIC TWICE A DAY, NOTES: 12/06/192099 TAKING MAY HAVE VITAMIN B-12 INJECTION SC MONTHLY, NOTES: ABOUT 10 DAYS AGO TAKING ZOFRAN 4 MG TABLET 1 TABLET ORALLY ONCE A DAY, NOTES: 12/06/192099 NOT-TAKING POTASSIUM CITRATE - GRANULES DIRECTED NOT-TAKING ASMANEX HFA 100 MCG/ACT AEROSOL 2 PUFFS INHALATION TWICE A DAY NOT-TAKING OMEPRAZOLE 20 MG CAPSULE DELAYED RELEASE 1 CAPSULE ORALLY ONCE A DAY NOT-TAKING PROTONIX 40 MG TABLET DELAYED RELEASE 1 TABLET ORALLY ONCE A DAY NOT-TAKING LISINOPRIL 5 MG TABLET 1 TABLET ORALLY ONCE A DAY NOT-TAKING VITAMIN D-3 1000 UNIT CAPSULE 1 CAPSULE ORALLY ONCE A DAY NOT-TAKING TYLENOL 325 MG TABLET 2 TABLET NEEDED ORALLY BEFORE BEDTIME NOT-TAKING TIZANIDINE HCL 2 MG TABLET 1 TABLET NEEDED ORALLY THREE TIMES A DAY, NOTES: UNSURE OF DOSE, ONLY TAKES AT BEDTIME NOT-TAKING KETOTIFEN FUMARATE 0.025 % SOLUTION 1 DROP INTO AFFECTED EYE OPHTHALMIC TWICE A DAY NOT-TAKING REQUIP 1 MG TABLET ORALLY ONCE A DAY MEDICATION LIST REVIEWED AND RECONCILED WITH THE PATIENT PAST MEDICAL HISTORY BACK PAIN RESTLESS LEG HYPOGLYCEMIA ANEMIA ASTHMA ALLERGIES CODEINE SULFATE: HYPOTENSION COCONUT: VOMIT NUTS: VOMITING - ALLERGY PEANUT BUTTER : VOILENT VOMITING MILK: NAUSEA PEANUT (DIAGNOSTIC) LACTOSE: SIDE EFFECTS AMOXICILLIN SURGICAL HISTORY CARPAL TUNNEL RIGHT WRITS 2000 ARTEIAL ZOROASTRIANISM BIOPSY 1996 TUBAL LIGATION 1989 CHOLESCYSTECTOMY 200 RIGHT SHOULDER ROTATER CUFF 2013 HYSTERECTOMY 1994 GASTRIC BYPASS 2016 LEFT KNEE REPLACEMENT 05/21/2019 FAMILY HISTORY FATHER: , DIAGNOSED WITH HYPERTENSION, UNSPECIFIED HEART DISEASE, DIABETES, OTHER SPECIFIED CONDITIONS INFLUENCING HEALTH STATUS MOTHER: ALIVE, OTHER SPECIFIED CONDITIONS INFLUENCING HEALTH STATUS 1 BROTHER(S) - HEALTHY. 2 SON(S) - HEALTHY. SOCIAL HISTORY GENERAL: TOBACCO USE ARE YOU A:NONSMOKER LATEX QUESTIONNAIRE LATEX ALLERGY : HAVE YOU EVER DEVELOPED ANY TYPE OF REACTION AFTER HANDLING LATEX PRODUCTS SUCH RUBBER GLOVES, CONDOMS, DIAPHRAGMS, BALLOONS, SOCKS, OR UNDERWEAR?NO LATEX ALLERGY : HAVE YOU EVER DEVELOPED ANY TYPE OF REACTION DURING OR AFTER DENTAL APPOINTMENT, VAGINAL/RECTAL EXAMINATION, SURGICAL PROCEDURE, OR ANY OTHER EXPOSURE?NO DATE ASKED : 10/08/2019 LATEX RISK : HAVE YOU EVER HAD ANY DIFFICULTY BREATHING OR HIVES AFTER EATING OR HANDLING ANY FRUITS, OR VEGETABLES; SUCH KIWI, BANANAS, STONE FRUITS, OR CHESTNUTSNO LATEX RISK : DO YOU HAVE A PREVIOUS PERSONAL HISTORY OF MORE THAN NINE SURGERIES, SPINA BIFIDA, OR REPEATED CATHERIZATIONS? NO LATEX RISK : ARE YOU FREQUENTLY EXPOSED TO LATEX PRODUCTS IN YOUR OCCUPATION?NO ALCOHOL SCREENING DID YOU HAVE A DRINK CONTAINING ALCOHOL IN THE PAST YEAR?YES HOW OFTEN DID YOU HAVE SIX OR MORE DRINKS ON ONE OCCASION IN THE PAST YEAR?NEVER (0 POINTS) HOW MANY DRINKS DID YOU HAVE ON A TYPICAL DAY WHEN YOU WERE DRINKING IN THE PAST YEAR?1 OR 2 (0 POINTS) HOW OFTEN DID YOU HAVE A DRINK CONTAINING ALCOHOL IN THE PAST YEAR?MONTHLY OR LESS (1 POINT) POINTS1 INTERPRETATIONNEGATIVE RECREATIONAL DRUG USE DRUG USE?NO JEW [id number] NONE LANGUAGE LANGUAGES SPOKEN:MOHAWK LEARNING BARRIERS / SPECIAL NEEDS BARRIERS TO LEARNING?NO HEARING IMPAIRED?NO VISION IMPAIRED?YES COGNITIVELY IMPAIRED?NO :CORRECTIVE LENSES READINESS TO LEARN?YES LEARNING PREFERENCES?NO LEARNING CAPABILITIES PRESENT?YES EMOTIONAL BARRIERS?NO SPECIAL DEVICES?NO SCALLOP BINDER NEEDED?NO NEW PATIENT PAIN DIARY TODAY'S VISITNOTES 10/08/2019 PATIENT DESCRIBES PAIN :ACHING, HAVE IT ALL THE TIME, SHOOTING FROM 0-10, WHAT LEVEL IS YOUR PAIN TODAY?7 PRECIPITATING FACTORS COLD WEATHER ALLEVIATING FACTORS SWEETSER HOT SHOWER PAIN CLINIC PFS, CLERGY, PUBLIC HEALTH REFERRALS PFS REFERRAL NEEDED?NO CLERGY REFERRAL NEEDED?NO PUBLIC HEALTH REFERRAL NEEDED?NO WAS THE PROVIDER NOTIFIED OF ANY PERTINENT INFO?YES HAS THE PATIENT BEEN EDUCATED REGARDING HIS/HER PLAN OF CARE?YES HAS THE PATIENT BEEN EDUCATED REGARDING PAIN, THE RISK FOR PAIN, THE IMPORTANCE OF EFFECTIVE PAIN MANAGEMENT, AND THE PAIN ASSESSMENT PROCESS?YES ADVANCE DIRECTIVE ADVANCE DIRECTIVE DISCUSSED WITH PATIENT:YES PATIENT HAS NO ADVANCED DIRECTIVES AND DECLINES HCP INFORMATION AND ASSISTANCE WITH FORM AT THIS TIME. HOSPITALIZATION/MAJOR DIAGNOSTIC PROCEDURE SURGERY RELATED VITAL SIGNS WT 232.6 LBS, HT 61 IN, BMI 43.94 INDEX, BP 170/90 MM HG, HR 56 /MIN, RR 18 /MIN, TEMP 96.0 F, OXYGEN SAT % 97%, SAFE IN ENV? (Y/N) YES, NA INITIALS AW 1300, REVIEWED BY: HEBER. EXAMINATION GENERAL EXAMINATION: THE PATIENT IS ALERT, ORIENTED TIMES THREE AND COOPERATIVE. HEART SHOWS REGULAR RHYTHM, NO GALLOPS. THE PATIENT HAS A II/IV SYSTEMIC MURMUR. LUNGS ARE CLEAR TO AUSCULTATION. ASSESSMENTS SACROILIITIS, NOT ELSEWHERE CLASSIFIED - M46.1 (PRIMARY) SACROILIAC JOINT DYSFUNCTION - M53.3 TREATMENT SACROILIITIS, NOT ELSEWHERE CLASSIFIED [facility] FLUORO GUIDANCE (PAIN)[id number] MEDICATION: VALIUM TAB 2MG ORALLY (DIAZEPAM)YANDEL COPE RN 12/07/2019 2:38:46 PM > LOT #[id number]. EXP. MAY 2020. NANCY VALLE 12/07/2019 2:42:26 PM > VERIFIED YANDEL COPE RN 12/07/2019 2:58:02 PM > GIVEN AT 1451. MEDICATION: OXYCODONE HCL TAB 5MG ORALLY YANDEL COPE RN 12/07/2019 2:39:39 PM > LOT [id number]. EXP. 06/2021. NANCY VALLE 12/07/2019 2:42:50 PM > VERIFIED YANDEL COPE RN 12/07/2019 2:58:28 PM > GIVEN AT 1451. IV LACTATED RINGER'S WIDE OPENDILEONARDO,RAYMOND 12/07/2019 04:02:20 PM - 650 ML YANDEL COPE RN 12/07/2019 4:57:49 PM > GIVEN. THIS PROCEDURE WAS REVIEWED BY YANDEL COPE RN ON 12/09/2019 AT 16:34 PM EDT PROCEDURES PAIN NURSING RECORD PRE-PROCEDURE IV SITE LEFT ANTECUBITAL, IV STARTED # 22, IV STARTED BY: Walker COPE RN, IV ATTEMPTS 1, PRE-PROCEDURE ORAL MEDICATIONS INSTRUCTED AT 1451 RE POTENTIAL DIZZINESS AND DROWSINESS. SIDE RAIL UP AND CALL [facility] IN REACH. INSTRUCTED TO CALL IF NEEDS TO GET OUT OF BED. PROCEDURE IN ROOM 1540, PHYSICIAN IN ROOM 1555, START 1556, FINISH 1601, PHYSICIAN OUT OF ROOM 1603, OUT OF ROOM 1613, STEROID KENALOG, O2 RA, ECG NORMAL SINUS INTERMITTENTLY ALSO SINUS BRADYCARDIA., PATIENT SHIELDED YES, SAFETY STRAP YES, PREP CHLOROPREP PREP BY Rehan FLORES RN. STERILE TRAY BY Santana GRIFFITHS RN AND Rehan FLORES RN., IV INFUSED LACTATED RINGERS, DRESSING TEGADERM LOC: 1455 1. ALERT, ORIENTED, 1510 1. ALERT, ORIENTED, 1525 1. ALERT, ORIENTED, 1545 1. ALERT, ORIENTED, 1600 1. ALERT, ORIENTED, 1615, 1. ALERT, ORIENTED RESP: 1455 1. REGULAR, NO DYSPNEA, 1510 1. REGULAR, NO DYSPNEA, 1525 1. REGULAR, NO DYSPNEA, 1545 1. REGULAR, NO DYSPNEA, 1600 1. REGULAR, NO DYSPNEA, 1615, 1. REGULAR, NO DYSPNEA COLOR: 1455 1. PINK, 1510 1. PINK, 1525 1. PINK, 1545 1. PINK, 1600 1. PINK, 1615, 1. PINK SKIN: 1455 1. WARM, DRY, 1510 1. WARM, DRY, 1525 1. WARM, DRY, 1545 1. WARM, DRY, 1600 1. WARM, DRY, 1615, 1. WARM, DRY POSITION: 1455 2. SUPINE, 1510 2. SUPINE, 1525 2. SUPINE, 1545 1. PRONE, 1600 1. PRONE, 1615, 2. SUPINE VITALS: 1455 195/84 57-16 99% 1500 196/88 98% 1515 193/105 99% 1530 212/99 98% 1535 MANUAL B/P 170/91. REPORTED ABDOMINAL PAIN AFTER PO MEDICATIONS. STATES LASTED 3-4 MINUTES AND IS NOW RESOLVED. DENIES NAUSEA. ELEVATED B/PS AND BRIEF ABDOMINAL PAIN REPORTED TO DR. ESPINOZA. 1545 221/109 67-16 99% 1555 206/92 60-16 100%. ELEVATED B/P REPORTED TO DR. ESPINOZA. 1559 HR BRIEFLY DECREASED TO 46 SINUS BRADYCARDIA THEN INCREASED TO 53. B/P 201/93. NO NAUSEA OR CHANGE IN SKIN TEMPERATURE OR COLOR NOTED. TRANSIENT DECREASED HEART RATE REPORTED TO DR. ESPINOZA. [address] ESPINOZA, DO NOT DISCONTINUE IV UNTIL PT IN PROCESS OF BEING DISCHARGED. 1607 223/102 63-16 98%. DENIES DOUBLE OR BLURRED VISION. STATES ALWAYS HAS A HEADACHE. HAD A HEADACHE PRIOR TO START OF PROCEDURE 5/10. IS BEING TREATED FOR MIGRAINES. WILL SEE PRIMARY CARE PROVIDER NEXT WEEK AND WILL TAKE HER BLOOD PRESSURE MEDICATIONS THIS EVENING PRESCRIBED. 1618 200/100 MANUAL 63-18 99%. 1635 B/PS AND HEADACHE REPORTED TO DR. ESPINOZA. 1642 RECEIVED AN ADDITIONAL 150 ML RL IV PRIOR TO DISCHARGE. Walker COPE CHARTER BOAT OPERATOR: POST PAIN 0/10, DRESSING SITE DRY AND INTACT, IV DISCONTINUED, SITE CLEAR, CATHETER INTACT, GAIT STEADY, TEACHING COMPLETED, PATIENT ACKNOWLEDGES UNDERSTANDING YES, PATIENT DISCHARGED AT 1642 PN SI PRE PROCEDURE DIAGNOSIS SACROILIITIS, SACROILIAC JOINT DYSFUNCTION POST PROCEDURE DIAGNOSIS SACROILIITIS, SACROILIAC JOINT DYSFUNCTION PROCEDURE BILATERAL SACROILIAC JOINT BLOCK SURGEON DR. LUCIANO ESPINOZA SENIOR QA ANALYST NONE ANESTHESIA LOCAL PRE PROCEDURE NOTE THE PATIENT WITH HISTORY OF CHRONIC LOW BACK PAIN. I EVALUATED THE PATIENT AND REVIEWED THE CHART. I WENT OVER THE RISKS, ALTERNATIVES, AND BENEFITS ASSOCIATED WITH THIS PROCEDURE. I DISCUSSED THAT THE USE OF STEROIDS MAY CONTRIBUTE TO IMMUNOSUPPRESSION OF THE PATIENT'S BODY AGAINST INFECTIONS SUCH COVID-19. THE PATIENT IS AWARE OF THE POTENTIAL COMPLICATIONS ASSOCIATED WITH THIS VIRUS, INCLUDING, BUT NOT LIMITED TO, . I DISCUSSED THE USE OF DEXAMETHASONE INSTEAD OF KENALOG; HOWEVER, THE PATIENT WOULD LIKE TO MOVE FORWARD WITH KENALOG. THE PATIENT WOULD LIKE TO PROCEED AND GAVE CONSENT TO PERFORM THE PROCEDURE. THE PATIENT DENIES UNEXPLAINABLE WEIGHT LOSS, FEVER, CHILLS, OR NEW CHANGES IN URINARY OR BOWEL CONTROL. THE PATIENT IS COVID-19 NEGATIVE DESCRIPTION OF PROCEDURE THE PATIENT WAS BROUGHT TO THE PROCEDURE ROOM AND PLACED IN THE PRONE POSITION. THE LUMBOSACRAL AREA WAS CLEANED WITH CHLORAPREP SOLUTION AND DRAPED ASEPTICALLY. THE PROCEDURE WAS DONE UNDER STERILE CONDITIONS. A TIMEOUT WAS PERFORMED WHERE LATERALITY AND THE SITE OF THE PROCEDURE WERE CHECKED AND CONFIRMED WITH EVERYONE IN THE ROOM. UNDER FLUOROSCOPIC GUIDANCE, TARGET POINT WAS SELECTED AT THE LOWER BORDER OF THE RIGHT AND LEFT SACROILIAC JOINT. TARGET POINT WAS SELECTED AFTER MEDIAL ROTATION AND TILT OF THE MAGNIFIER OF THE C-ARM. LIDOCAINE WAS USED TO NUMB THE SKIN AND SUBCUTANEOUS TISSUE BELOW IT. A SPINAL NEEDLE, 22-GAUGE, WAS ADVANCED UNDER FLUOROSCOPIC GUIDANCE AND FOLLOWING PATIENT FEEDBACK UNTIL THE TARGET AREA WAS REACHED. THE POSITION OF THE NEEDLE WAS VERIFIED WITH AP AND LATERAL VIEWS. AFTER PROPER POSITION OF THE NEEDLE WAS ACHIEVED, ISOVUE-M DYE 30%, 0.25 ML, WAS INJECTED SHOWING ADEQUATE SPREAD OF THE DYE. KENALOG 30 MG WAS THEN INJECTED IN EACH JOINT. THEN, A SOLUTION OF 3 ML OF BUPIVACAINE 0.125% WAS USED TO FLUSH THE SITE. THE MEDICATIONS WERE VERIFIED WITH THE NURSE. THERE WAS NO EVIDENCE OF BLOOD, PARESTHESIA OR CEREBROSPINAL FLUID DURING THE PROCEDURE. THE PATIENT WAS SENT TO THE RECOVERY ROOM. THE PATIENT WAS MOVING THE EXTREMITIES AND DOING WELL. THERE WERE NO COMPLICATIONS DURING THE PROCEDURE. ESTIMATED BLOOD LOSS WAS LESS THAN 5 ML. FLUOROSCOPY TIME WAS 19 SECONDS POST PROCEDURE NOTE THE PROCEDURE DONE WAS DISCUSSED WITH THE PATIENT. THE PATIENT WILL BE SEEN IN A FOLLOW UP IN THE NEXT FEW WEEKS. I AM LOOKING FOR LONG LASTING PAIN RELIEF FOR THE PATIENT WITH THIS INTERVENTION. INSTRUCTIONS WERE GIVEN, QUESTIONS WERE ANSWERED, AND THE PATIENT EXPRESSED UNDERSTANDING AND AGREES WITH THE PLAN. THE PATIENT IS AWARE TO STAY HOME FOR THE NEXT WEEK, IF POSSIBLE, DUE TO COVID-19. I, RAYMOND MONSON, DOCUMENTED THE ABOVE INFORMATION ACTING A SCRIBE FOR DR. ESPINOZA. I HAVE REVIEWED THE ABOVE DOCUMENT, WRITTEN BY RAYMOND MONSON, CHEMICAL ENGINEERING TECHNOLOGIST, AND I VERIFY THAT IT IS ACCURATE PROCEDURE CODES 54687 INJECT SACROILIAC JOINT, MODIFIERS: 50 DISPOSITION & COMMUNICATION FOLLOW UP F/UP WITH GLASSWARE DEFECT REPAIRER (REASON: POST KEN SIJ) ELECTRONICALLY SIGNED BY LUCIANO ESPINOZA MD, MD ON 12/09/2019 AT 12:14 PM EDT DISCLAIMER : THIS IS A VISIT SUMMARY EXTRACTED FROM THE [employer] CHART. IT IS NOT A COPY OF THE [employer] PROGRESS NOTE. MTDD
== END ==
LOC: M PAIN 12:15
PROVIDERS: ATTEND Anesthesiology
DX: M46.1 Sacroiliitis, not elsewhere classified (principal); M53.3 Sacrococcygeal disorders, not elsewhere classified
CPT/HCPCS: 27096; J3301; Q9967

== ENCOUNTER → 2019-12-22 | Outpatient (POV) | payer OTHER ==
[~2019-12-22] MED LIST changes: -BUPIVACAINE HCL 0.25% 30ML VIAL As Ordered ONE; -ISOVUE-M 300 61% 15ML VIAL As Ordered ONE; -LIDOCAINE 1% SDV 30ML VIAL As Ordered ONE; -TRIAMCINOLONE ACETONIDE SUSP 40 MG/ML VIAL (J3301) As Ordered ONE; -diazePAM 2 MG TAB As Ordered ONE; -oxyCODONE 5MG TAB As Ordered ONE
== END ==
LOC: M PAIN 08:30
PROVIDERS: ATTEND Nurse Practitioner Family
DX: M46.1 Sacroiliitis, not elsewhere classified (principal)

== ENCOUNTER → 2020-01-10 | Outpatient (REF) ==
[2020-02-26 16:47] LABS: COLLAGEN ADP 123 SECONDS (56-103); COLLAGEN EPINEPHRINE 172 SECONDS (74-162)
== END ==
LOC: M LAB REF 11:32
DX: Z00.00 Encounter for general adult medical examination without abnormal findings (principal)

== ENCOUNTER → 2020-04-07 | Outpatient (CLI) | payer OTHER ==
[~2020-04-07] MED LIST changes: +ALBU8.5H
== END ==
LOC: M LABSMTC 09:32
PROVIDERS: ATTEND Anesthesiology
DX: Z01.812 Encounter for preprocedural laboratory examination (principal); Z20.828 Contact with and (suspected) exposure to other viral communicable diseases

== ENCOUNTER 2020-04-11 10:49 | Day surgery (SDC) | payer OTHER ==
[~2020-04-11] VITALS: Ht 152.4 cm; Wt 108.4 kg
[~2020-04-11 10:49] MED LIST changes: +LIDOCAINE 2% 100MG/5ML SDV (FOR ANES.) As Ordered ONE; +NS 1,000 ML IV ONE
[2020-04-11] MEDS ORDERED: propofoL 500 MG/50 ML VIAL As Ordered ONE (10:51)
[2020-04-11] MEDS ORDERED: fentaNYL 100 MCG/2 ML INJECTION (J3010) As Ordered ONE (10:52)
[2020-04-11] MEDS ORDERED: hydrALAZINE 20MG/ML 1ML VIAL (J0360 PER 20MG) As Ordered ONE (12:43)
--- NOTE | 2020-04-11 13:49 | ROOR ---
Patient Name: Herminia Ovalle Procedure Date: 04/11/2020 12:28 PM Date of : 1965 Age: 54 Room: [facility] Gender: Female Note Status: Finalized Procedure: Upper GI endoscopy Indications: Epigastric abdominal pain Providers: Jesús Zelaya MD Referring MD: GEORGE MADDEN MD Requesting Provider: Medicines: Monitored Anesthesia Care Complications: No immediate complications. Procedure: Pre-Anesthesia Assessment: - Prior to the procedure, a History and Physical was performed, and patient medications and allergies were reviewed. The patient is competent. The risks and benefits of the procedure and the sedation options and risks were discussed with the patient. All questions were answered and informed consent was obtained. Patient identification and proposed procedure were verified by the physician, the nurse and the anesthesiologist in the procedure room. Mental Status Examination: normal. Airway Examination: normal oropharyngeal airway and neck mobility. Respiratory Examination: clear to auscultation. CV Examination: normal. Prophylactic Antibiotics: The patient does not require prophylactic antibiotics. Prior Anticoagulants: The patient has taken no previous anticoagulant or antiplatelet agents. ASA Grade Assessment: II - A patient with mild systemic disease. After reviewing the risks and benefits, the patient was deemed in satisfactory condition to undergo the procedure. The anesthesia plan was to use monitored anesthesia care (MAC). Immediately prior to administration of medications, the patient was re-assessed for adequacy to receive sedatives. The heart rate, respiratory rate, oxygen saturations, blood pressure, adequacy of pulmonary ventilation, and response to care were monitored throughout the procedure. The physical status of the patient was re-assessed after the procedure. The Endoscope was introduced through the mouth, and advanced to the second part of duodenum. The upper GI endoscopy was accomplished without difficulty. The patient tolerated the procedure well. Findings: The examined esophagus was normal. Evidence of a Quinton-en-Y gastrojejunostomy was found. The gastrojejunal anastomosis was characterized by erythema and visible sutures. This was traversed. The aclsm-vo-opfyauk limb was characterized by healthy appearing mucosa. The jejunojejunal anastomosis was characterized by healthy appearing mucosa. The vshtsvwa-zs-orwpjkw limb was not examined as it could not be reached. Scattered mild inflammation characterized by erythema and granularity was found in the gastric body. Biopsies were taken with a cold forceps for Helicobacter pylori testing. Verification of patient identification for the specimen was done by the physician and nurse using the patient's name, date and medical record number. Estimated blood loss was minimal. The examined jejunum was normal. Biopsies for histology were taken with a cold forceps for evaluation of celiac disease. Impression: - Normal esophagus. - Quinton-en-Y gastrojejunostomy with gastrojejunal anastomosis characterized by erythema and visible sutures. - Gastritis. Biopsied. - Normal examined jejunum. Biopsied. Recommendation: - Patient has a contact number available for emergencies. The signs and symptoms of potential delayed complications were discussed with the patient. Return to normal activities tomorrow. Written discharge instructions were provided to the patient. - High fiber diet and Post gastric bypass diet (small frequent meals and avoid fatty/ fried foods). - Continue present medications. - Use Prilosec (omeprazole) 40 mg PO Daily - to be taken cigar head piercer on empty stomach for 6 weeks. - Await pathology results. - Follow the recommendations as per the other procedure note. - Return to GI clinic in 2 months. - Return to primary care physician. Procedure Code(s): --- Professional --- 71883, Esophagogastroduodenoscopy, flexible, transoral; with biopsy, single or multiple Diagnosis Code(s): --- Professional --- Z98.0, Intestinal bypass and anastomosis status K29.70, Gastritis, unspecified, without bleeding R10.13, Epigastric pain CPT copyright 2019 [employer] [place] [employer]. All rights reserved. The codes documented in this report are preliminary and upon internet marketing strategist review may be revised to meet current compliance requirements. Jesús Zelaya MD Jesús Zelaya MD 04/11/2020 1:48:40 PM Electronically signed by Jesús Zelaya MD Number of Addenda: 0 Note Initiated On: 04/11/2020 12:28 PM Estimated Blood Loss: Estimated blood loss was minimal.
--- NOTE | 2020-04-11 13:53 | ROOR ---
Patient Name: Herminia Ovalle Procedure Date: 04/11/2020 12:29 PM Date of : 1965 Age: 54 Room: [facility] Gender: Female Note Status: Finalized Procedure: Colonoscopy Indications: Chronic diarrhea Providers: Jesús Zelaya MD Referring MD: GEORGE MADDEN MD Requesting Provider: Medicines: Monitored Anesthesia Care Complications: No immediate complications. Procedure: Pre-Anesthesia Assessment: - Prior to the procedure, a History and Physical was performed, and patient medications and allergies were reviewed. The patient is competent. The risks and benefits of the procedure and the sedation options and risks were discussed with the patient. All questions were answered and informed consent was obtained. Patient identification and proposed procedure were verified by the physician, the nurse and the anesthesiologist in the procedure room. Mental Status Examination: alert and oriented. Respiratory Examination: clear to auscultation. Prophylactic Antibiotics: The patient does not require prophylactic antibiotics. Prior Anticoagulants: The patient has taken no previous anticoagulant or antiplatelet agents. ASA Grade Assessment: II - A patient with mild systemic disease. After reviewing the risks and benefits, the patient was deemed in satisfactory condition to undergo the procedure. The anesthesia plan was to use monitored anesthesia care (MAC). Immediately prior to administration of medications, the patient was re-assessed for adequacy to receive sedatives. The heart rate, respiratory rate, oxygen saturations, blood pressure, adequacy of pulmonary ventilation, and response to care were monitored throughout the procedure. The physical status of the patient was re-assessed after the procedure. The Colonoscope was introduced through the anus and advanced to the terminal ileum, with identification of the appendiceal orifice and IC valve. The colonoscopy was performed without difficulty. The patient tolerated the procedure well. The quality of the bowel preparation was not adequate to identify polyps 6 mm and larger in size. The terminal ileum, ileocecal valve, appendiceal orifice, and rectum were photographed. Scope insertion time was 3 minutes. Scope withdrawal time was 10 minutes. The total duration of the procedure was 14 minutes. Findings: The perianal and digital rectal examinations were normal. The terminal ileum appeared normal. A 15 mm polyp was found in the sigmoid colon. The polyp was sessile. The polyp was removed with a hot snare. Resection and retrieval were complete. Verification of patient identification for the specimen was done by the physician and nurse using the patient's name, date and medical record number. Estimated blood loss was minimal. To close a defect after polypectomy, one hemostatic clip was successfully placed. There was no bleeding at the end of the procedure. A large amount of stool was found from sigmoid to cecum, interfering with visualization. Lavage of the area was performed using a large amount of sterile water, resulting in incomplete clearance with continued poor visualization. Biopsies for histology were taken with a cold forceps from the right colon and left colon for evaluation of microscopic colitis. Non-bleeding external and internal hemorrhoids were found during retroflexion. The hemorrhoids were medium-sized. Impression: - Preparation of the colon was inadequate. - The examined portion of the ileum was normal. - One 15 mm polyp in the sigmoid colon, removed with a hot snare. Resected and retrieved. Clip was placed. - Stool from sigmoid to cecum. Biopsied. - Non-bleeding external and internal hemorrhoids. Recommendation: - Patient has a contact number available for emergencies. The signs and symptoms of potential delayed complications were discussed with the patient. Return to normal activities tomorrow. Written discharge instructions were provided to the patient. - High fiber diet. - Continue present medications. - Await pathology results. - Repeat colonoscopy at next available appointment (within 3 months) because the bowel preparation was poor and for surveillance based on pathology results. - Return to GI clinic in 2 months. - Return to primary care physician. Procedure Code(s): --- Professional --- 26060, Colonoscopy, flexible; with removal of tumor(s), polyp(s), or other lesion(s) by snare technique 20699, 59, Colonoscopy, flexible; with biopsy, single or multiple Diagnosis Code(s): --- Professional --- K64.8, Other hemorrhoids K63.5, Polyp of colon K52.9, Noninfective gastroenteritis and colitis, unspecified CPT copyright 2019 [employer]. All rights reserved. The codes documented in this report are preliminary and upon tag maker review may be revised to meet current compliance requirements. Jesús Zelaya MD Jesús Zelaya MD 04/11/2020 1:52:35 PM Electronically signed by Jesús Zelaya MD Number of Addenda: 0 Note Initiated On: 04/11/2020 12:29 PM Estimated Blood Loss: Estimated blood loss was minimal.
[2020-04-11 14:00] VITALS: BP 146/81
== END 2020-04-11 14:21 | disposition home or self-care (01) ==
LOC: M OPP 10:49
PROVIDERS: ATTEND Internal Medicine Gastroenterology
DX: K63.5 Polyp of colon (principal); K64.8 Other hemorrhoids; K52.9 Noninfective gastroenteritis and colitis, unspecified; Z98.0 Intestinal bypass and anastomosis status; K29.70 Gastritis, unspecified, without bleeding; R10.13 Epigastric pain; Z79.899 Other long term (current) drug therapy; Z88.5 Allergy status to narcotic agent; Z91.010 Allergy to peanuts; Z91.011 Allergy to milk products; Z91.018 Allergy to other foods
CPT/HCPCS: 43239; 45380; 45385; 88305; J0360; J3010

== ENCOUNTER → 2021-07-23 | Outpatient (CLI) | payer OTHER ==
[~2021-07-23] MED LIST changes: +EYE0.0255 OU; +FERR324T21 PO; -FERR325T16 PO; -FLUC150T PO; +FLUC150T9 PO; -LIDOCAINE 2% 100MG/5ML SDV (FOR ANES.) As Ordered ONE; -LISI20TA20 PO; +LISI20TA37 PO; -LISI40TA PO; +LISI40TA4 PO; -MONT10TA4 PO; +MONT10TA97 PO; -NS 1,000 ML IV ONE; -SM E1DRO2 OU; -TOPI25CA3 PO; +TOPI25CA5 PO
== END ==
LOC: M PAIN 11:00
PROVIDERS: ATTEND Nurse Practitioner Family
DX: M46.1 Sacroiliitis, not elsewhere classified (principal); G25.81 Restless legs syndrome; D64.9 Anemia, unspecified; J45.909 Unspecified asthma, uncomplicated; E16.2 Hypoglycemia, unspecified; Z79.899 Other long term (current) drug therapy; Z88.5 Allergy status to narcotic agent; Z91.010 Allergy to peanuts; Z91.018 Allergy to other foods; Z91.011 Allergy to milk products; Z88.0 Allergy status to penicillin

== ENCOUNTER → 2021-09-12 | Outpatient (CLI) | payer OTHER | LOC: M PAIN 10:15 | PROVIDERS: ATTEND Nurse Practitioner Family | DX: M46.1 Sacroiliitis, not elsewhere classified (principal); G89.29 Other chronic pain; G25.81 Restless legs syndrome; D50.9 Iron deficiency anemia, unspecified; J45.909 Unspecified asthma, uncomplicated; Z98.84 Bariatric surgery status; Z96.652 Presence of left artificial knee joint; Z88.1 Allergy status to other antibiotic agents; Z88.5 Allergy status to narcotic agent; Z91.010 Allergy to peanuts; Z91.011 Allergy to milk products; Z91.018 Allergy to other foods; E66.01 Morbid (severe) obesity due to excess calories; Z68.41 Body mass index [BMI] 40.0-44.9, adult; Z79.899 Other long term (current) drug therapy ==

== ENCOUNTER → 2021-09-12 | Outpatient (CLI) | payer OTHER | LOC: M RAD 11:53 | PROVIDERS: ATTEND Nurse Practitioner Family | DX: M46.1 Sacroiliitis, not elsewhere classified (principal) ==

== ENCOUNTER → 2021-10-02 | Outpatient (CLI) | payer OTHER | LOC: M PAIN 10:45 | PROVIDERS: ATTEND Nurse Practitioner Family | DX: M46.1 Sacroiliitis, not elsewhere classified (principal); G89.29 Other chronic pain; G25.81 Restless legs syndrome; D50.9 Iron deficiency anemia, unspecified; J45.909 Unspecified asthma, uncomplicated; Z98.84 Bariatric surgery status; Z96.652 Presence of left artificial knee joint; Z88.1 Allergy status to other antibiotic agents; Z88.5 Allergy status to narcotic agent; Z88.8 Allergy status to other drugs, medicaments and biological substances; Z91.011 Allergy to milk products; Z91.018 Allergy to other foods; E66.01 Morbid (severe) obesity due to excess calories; Z68.42 Body mass index [BMI] 45.0-49.9, adult; Z79.899 Other long term (current) drug therapy ==

== ENCOUNTER → 2021-12-24 | Outpatient (CLI) | payer OTHER | LOC: M PAIN 14:00 | PROVIDERS: ATTEND Nurse Practitioner Family | DX: M46.1 Sacroiliitis, not elsewhere classified (principal); G25.81 Restless legs syndrome; E16.2 Hypoglycemia, unspecified; D64.9 Anemia, unspecified; J45.909 Unspecified asthma, uncomplicated; H53.9 Unspecified visual disturbance; Z79.899 Other long term (current) drug therapy; H91.93 Unspecified hearing loss, bilateral; Z88.5 Allergy status to narcotic agent; Z88.0 Allergy status to penicillin; Z91.018 Allergy to other foods; Z91.011 Allergy to milk products ==

== ENCOUNTER → 2022-02-25 | Outpatient (CLI) | payer OTHER | LOC: M PAIN 10:00 | PROVIDERS: ATTEND Nurse Practitioner Family | DX: M46.1 Sacroiliitis, not elsewhere classified (principal); G89.29 Other chronic pain; G25.81 Restless legs syndrome; D50.9 Iron deficiency anemia, unspecified; J45.909 Unspecified asthma, uncomplicated; Z88.1 Allergy status to other antibiotic agents; Z88.5 Allergy status to narcotic agent; Z91.010 Allergy to peanuts; Z91.011 Allergy to milk products; Z91.018 Allergy to other foods; E66.01 Morbid (severe) obesity due to excess calories; Z68.41 Body mass index [BMI] 40.0-44.9, adult; Z79.899 Other long term (current) drug therapy ==

== ENCOUNTER → 2022-06-03 | Outpatient (CLI) | payer OTHER | LOC: M PAIN 10:00 | PROVIDERS: ATTEND Nurse Practitioner Family | DX: M46.1 Sacroiliitis, not elsewhere classified (principal); G89.29 Other chronic pain; G25.81 Restless legs syndrome; D50.9 Iron deficiency anemia, unspecified; J45.909 Unspecified asthma, uncomplicated; Z88.1 Allergy status to other antibiotic agents; Z88.5 Allergy status to narcotic agent; Z91.010 Allergy to peanuts; Z91.011 Allergy to milk products; Z91.018 Allergy to other foods; E66.01 Morbid (severe) obesity due to excess calories; Z68.41 Body mass index [BMI] 40.0-44.9, adult; Z79.899 Other long term (current) drug therapy ==

== ENCOUNTER → 2022-06-25 | Outpatient (CLI) | payer OTHER | LOC: M PLAIMG 10:43 | PROVIDERS: ATTEND Nurse Practitioner Family | DX: M46.1 Sacroiliitis, not elsewhere classified (principal); M16.0 Bilateral primary osteoarthritis of hip; M25.451 Effusion, right hip; M70.71 Other bursitis of hip, right hip ==

== ENCOUNTER → 2022-07-01 | Outpatient (CLI) | payer OTHER | LOC: M PAIN 15:45 | PROVIDERS: ATTEND Nurse Practitioner Family | DX: M46.1 Sacroiliitis, not elsewhere classified (principal); G25.81 Restless legs syndrome; E16.2 Hypoglycemia, unspecified; D64.9 Anemia, unspecified; J45.909 Unspecified asthma, uncomplicated; Z79.899 Other long term (current) drug therapy; Z88.5 Allergy status to narcotic agent; Z88.0 Allergy status to penicillin; Z88.8 Allergy status to other drugs, medicaments and biological substances; Z91.018 Allergy to other foods; Z91.010 Allergy to peanuts; E73.9 Lactose intolerance, unspecified ==

== ENCOUNTER → 2022-07-12 | Outpatient (CLI) | payer OTHER | LOC: M PLAIMG 12:02 | PROVIDERS: ATTEND Physician Assistant Surgical | DX: M16.11 Unilateral primary osteoarthritis, right hip (principal) ==

== ENCOUNTER → 2022-09-23 | Outpatient (CLI) | payer OTHER ==
[~2022-09-23] MED LIST changes: -KETO0.02 OU; +KETO5DRO33 OU
== END ==
LOC: M PAIN 10:45
PROVIDERS: ATTEND Nurse Practitioner Family
DX: M46.1 Sacroiliitis, not elsewhere classified (principal); G89.29 Other chronic pain; G25.81 Restless legs syndrome; D50.9 Iron deficiency anemia, unspecified; J45.909 Unspecified asthma, uncomplicated; Z98.84 Bariatric surgery status; Z96.652 Presence of left artificial knee joint; Z88.1 Allergy status to other antibiotic agents; Z88.5 Allergy status to narcotic agent; Z88.8 Allergy status to other drugs, medicaments and biological substances; Z91.010 Allergy to peanuts; Z91.011 Allergy to milk products; Z91.018 Allergy to other foods; E66.01 Morbid (severe) obesity due to excess calories; Z68.42 Body mass index [BMI] 45.0-49.9, adult; Z79.899 Other long term (current) drug therapy

== ENCOUNTER → 2022-11-04 | Outpatient (CLI) | payer OTHER | LOC: M PAIN 08:45 | PROVIDERS: ATTEND Nurse Practitioner Family | DX: M46.1 Sacroiliitis, not elsewhere classified (principal); G89.29 Other chronic pain; G25.81 Restless legs syndrome; D50.9 Iron deficiency anemia, unspecified; J45.909 Unspecified asthma, uncomplicated; Z98.84 Bariatric surgery status; Z96.652 Presence of left artificial knee joint; Z88.1 Allergy status to other antibiotic agents; Z88.5 Allergy status to narcotic agent; Z88.8 Allergy status to other drugs, medicaments and biological substances; Z91.010 Allergy to peanuts; Z91.011 Allergy to milk products; Z91.018 Allergy to other foods; E66.01 Morbid (severe) obesity due to excess calories; Z68.42 Body mass index [BMI] 45.0-49.9, adult; Z79.899 Other long term (current) drug therapy ==

== ENCOUNTER → 2022-12-03 | Outpatient (CLI) | payer OTHER ==
[~2022-12-03] MED LIST changes: -ROPI1TAB3 PO; +ROPI1TAB73 PO
== END ==
LOC: M PAIN 09:00
PROVIDERS: ATTEND Nurse Practitioner Family
DX: M46.1 Sacroiliitis, not elsewhere classified (principal); G25.81 Restless legs syndrome; D64.9 Anemia, unspecified; J45.909 Unspecified asthma, uncomplicated; E16.2 Hypoglycemia, unspecified; M54.50 Low back pain, unspecified; M25.551 Pain in right hip; Z79.899 Other long term (current) drug therapy; Z88.5 Allergy status to narcotic agent; Z88.0 Allergy status to penicillin; Z88.8 Allergy status to other drugs, medicaments and biological substances; Z91.018 Allergy to other foods; Z91.010 Allergy to peanuts; Z91.011 Allergy to milk products

== ENCOUNTER → 2022-12-13 | Outpatient (CLI) | payer OTHER | LOC: M PAIN 15:30 | PROVIDERS: ATTEND Nurse Practitioner Family | DX: M46.1 Sacroiliitis, not elsewhere classified (principal); G89.29 Other chronic pain; G25.81 Restless legs syndrome; M54.50 Low back pain, unspecified; M25.551 Pain in right hip; D64.9 Anemia, unspecified; J45.909 Unspecified asthma, uncomplicated; Z79.899 Other long term (current) drug therapy; Z88.5 Allergy status to narcotic agent; Z88.0 Allergy status to penicillin; Z88.8 Allergy status to other drugs, medicaments and biological substances; Z91.048 Other nonmedicinal substance allergy status; E73.9 Lactose intolerance, unspecified; Z91.011 Allergy to milk products ==

== ENCOUNTER 2023-01-16 10:57 | Emergency (ER) | payer OTHER ==
[~2023-01-16] VITALS: Ht 152.4 cm; Wt 107.9 kg
[~2023-01-16 10:57] MED LIST changes: -ADV250INH; -KETO5DRO33; -PANT40TA29; -VALS1TAB66
[2023-01-16] MEDS ORDERED: KETO5DRO33 (11:13)
[2023-01-16] MEDS ORDERED: ADV250INH (11:13)
[2023-01-16] MEDS ORDERED: VALS1TAB66 (11:13)
[2023-01-16] MEDS ORDERED: PANT40TA29 (11:13)
[2023-01-16] MEDS ORDERED: VALSARTAN 80 MG TAB (DIOVAN) PO ONE (12:10)
[2023-01-16 12:30] VITALS: BP 172/92
[2023-01-16 13:30] VITALS: BP 182/92
[2023-01-16 13:46] VITALS: TEMP 96.8; O2SAT 98
== END 2023-01-16 13:46 | disposition home or self-care (01) ==
LOC: M ED 10:57
DX: I10 Essential (primary) hypertension (principal); R00.1 Bradycardia, unspecified; G40.909 Epilepsy, unspecified, not intractable, without status epilepticus; G43.909 Migraine, unspecified, not intractable, without status migrainosus; J45.909 Unspecified asthma, uncomplicated; G47.30 Sleep apnea, unspecified; K21.9 Gastro-esophageal reflux disease without esophagitis; F41.9 Anxiety disorder, unspecified; F32.9 Major depressive disorder, single episode, unspecified; J30.89 Other allergic rhinitis; Z86.2 Personal history of diseases of the blood and blood-forming organs and certain disorders involving the immune mechanism; Z86.39 Personal history of other endocrine, nutritional and metabolic disease; Z98.84 Bariatric surgery status; Z87.891 Personal history of nicotine dependence; Z79.899 Other long term (current) drug therapy; Z91.011 Allergy to milk products; Z91.010 Allergy to peanuts; Z88.5 Allergy status to narcotic agent; Z88.0 Allergy status to penicillin; Z91.018 Allergy to other foods

== ENCOUNTER → 2023-01-16 | Outpatient (CLI) | payer OTHER ==
[~2023-01-16] MED LIST changes: +ADV250INH; +KETO5DRO33; +PANT40TA29; +VALS1TAB66
== END ==
LOC: M PAIN 09:30
PROVIDERS: ATTEND Anesthesiology
DX: M46.1 Sacroiliitis, not elsewhere classified (principal); I10 Essential (primary) hypertension; G25.81 Restless legs syndrome; D64.9 Anemia, unspecified; J45.909 Unspecified asthma, uncomplicated; M54.50 Low back pain, unspecified; G89.29 Other chronic pain; Z79.899 Other long term (current) drug therapy; Z88.5 Allergy status to narcotic agent; Z88.8 Allergy status to other drugs, medicaments and biological substances; Z91.010 Allergy to peanuts; Z91.011 Allergy to milk products; Z91.018 Allergy to other foods; Z88.0 Allergy status to penicillin; Z91.048 Other nonmedicinal substance allergy status; Z53.09 Procedure and treatment not carried out because of other contraindication

== ENCOUNTER → 2023-02-18 | Outpatient (CLI) | payer MEDICARE, OTHER ==
[~2023-02-18] MED LIST changes: +ADV250INH; +KETO5DRO33; -OXYB5TAB10 PO; +OXYB5TAB11 PO; +PANT40TA29; +VALS1TAB66
== END ==
LOC: M PAIN 10:15
PROVIDERS: ATTEND Nurse Practitioner Family
DX: M46.1 Sacroiliitis, not elsewhere classified (principal); I10 Essential (primary) hypertension; G89.29 Other chronic pain; G25.81 Restless legs syndrome; E16.2 Hypoglycemia, unspecified; D64.9 Anemia, unspecified; H53.9 Unspecified visual disturbance; J45.909 Unspecified asthma, uncomplicated; Z79.899 Other long term (current) drug therapy; Z88.5 Allergy status to narcotic agent; Z88.0 Allergy status to penicillin; Z88.8 Allergy status to other drugs, medicaments and biological substances; Z91.010 Allergy to peanuts; Z91.011 Allergy to milk products; Z91.018 Allergy to other foods

== ENCOUNTER → 2023-03-05 | Outpatient (CLI) | payer MEDICARE, OTHER | LOC: M PAIN 14:45 | PROVIDERS: ATTEND Anesthesiology | DX: M53.3 Sacrococcygeal disorders, not elsewhere classified (principal); G89.29 Other chronic pain; G25.81 Restless legs syndrome; D64.9 Anemia, unspecified; J45.909 Unspecified asthma, uncomplicated; E16.2 Hypoglycemia, unspecified; Z79.899 Other long term (current) drug therapy; Z88.5 Allergy status to narcotic agent; Z88.0 Allergy status to penicillin; Z88.8 Allergy status to other drugs, medicaments and biological substances; Z91.010 Allergy to peanuts; Z91.011 Allergy to milk products; Z91.018 Allergy to other foods ==

== ENCOUNTER → 2023-04-21 | Outpatient (CLI) | payer MEDICARE, OTHER | LOC: M PAIN 10:45 | PROVIDERS: ATTEND Nurse Practitioner Family | DX: M53.3 Sacrococcygeal disorders, not elsewhere classified (principal); G89.29 Other chronic pain; Z98.84 Bariatric surgery status; Z88.1 Allergy status to other antibiotic agents; Z88.5 Allergy status to narcotic agent; Z88.8 Allergy status to other drugs, medicaments and biological substances; Z91.011 Allergy to milk products; Z91.018 Allergy to other foods; E66.01 Morbid (severe) obesity due to excess calories; Z68.41 Body mass index [BMI] 40.0-44.9, adult; Z79.899 Other long term (current) drug therapy ==

== ENCOUNTER → 2023-06-13 | Outpatient (CLI) | payer OTHER, MEDICARE ==
[~2023-06-13] MED LIST changes: -OXYB5TAB11 PO; +OXYB5TAB14 PO
== END ==
LOC: M PAIN 11:45
PROVIDERS: ATTEND Nurse Practitioner Family
DX: M46.1 Sacroiliitis, not elsewhere classified (principal); G89.29 Other chronic pain; M54.50 Low back pain, unspecified; M54.6 Pain in thoracic spine; G25.81 Restless legs syndrome; D64.9 Anemia, unspecified; J45.909 Unspecified asthma, uncomplicated; Z79.899 Other long term (current) drug therapy; Z88.0 Allergy status to penicillin; Z88.8 Allergy status to other drugs, medicaments and biological substances; Z88.5 Allergy status to narcotic agent; Z91.010 Allergy to peanuts; Z91.011 Allergy to milk products; Z91.048 Other nonmedicinal substance allergy status

== ENCOUNTER → 2023-07-15 | Outpatient (CLI) | payer MEDICARE, OTHER | LOC: M PAIN 11:15 | PROVIDERS: ATTEND Nurse Practitioner Family | DX: M46.1 Sacroiliitis, not elsewhere classified (principal); G89.29 Other chronic pain; G25.81 Restless legs syndrome; J45.909 Unspecified asthma, uncomplicated; Z79.899 Other long term (current) drug therapy; Z98.84 Bariatric surgery status; Z88.5 Allergy status to narcotic agent; Z88.0 Allergy status to penicillin; Z91.010 Allergy to peanuts; Z91.011 Allergy to milk products; Z91.048 Other nonmedicinal substance allergy status ==

== ENCOUNTER → 2023-07-18 | Outpatient (REF) | payer MEDICARE ==
[2023-07-18 14:20] LABS: APPEARANCE, URINE HAZY (CLEAR); BACTERIA, URINE AUTO NEGATIVE (NEGATIVE); BILIRUBIN, URINE AUTO NEGATIVE (NEGATIVE); BLOOD, URINE BLOOD NEGATIVE (NEGATIVE); COLOR, URINE YELLOW (YELLOW); GLUCOSE, URINE (UA) AUTO NEGATIVE (NEGATIVE); KETONE, URINE AUTO NEGATIVE (NEGATIVE); LEUKOCYTE ESTERASE, URINE AUTO NEGATIVE (NEGATIVE); MUCUS, URINE SMALL (NEGATIVE); NITRITE, URINE AUTO NEGATIVE (NEGATIVE); PROTEIN, URINE AUTO NEGATIVE (NEGATIVE); RBC, URINE AUTO 1 /HPF (0-3); SPECIFIC GRAVITY URINE AUTO 1.023 (1.002-1.035); SQUAMOUS EPITHELIAL CELL UR AU 2 /HPF (0-6); WBC, URINE AUTO 2 /HPF (0-3)
== END ==
LOC: M SMT 12:45
PROVIDERS: ATTEND Specialist
DX: R33.9 Retention of urine, unspecified (principal); N89.8 Other specified noninflammatory disorders of vagina; N32.81 Overactive bladder; Z11.3 Encounter for screening for infections with a predominantly sexual mode of transmission; Z72.89 Other problems related to lifestyle

== ENCOUNTER → 2023-10-16 | Outpatient (CLI) | payer MEDICARE | LOC: M PAIN 10:00 | PROVIDERS: ATTEND Nurse Practitioner Family | DX: M46.1 Sacroiliitis, not elsewhere classified (principal); G89.29 Other chronic pain; G25.81 Restless legs syndrome; D64.9 Anemia, unspecified; J45.909 Unspecified asthma, uncomplicated; Z79.899 Other long term (current) drug therapy; Z88.0 Allergy status to penicillin; Z88.8 Allergy status to other drugs, medicaments and biological substances; Z88.5 Allergy status to narcotic agent; Z91.018 Allergy to other foods; Z91.010 Allergy to peanuts; Z91.048 Other nonmedicinal substance allergy status; Z91.011 Allergy to milk products ==

== ENCOUNTER → 2023-10-22 | Outpatient (CLI) | payer MEDICARE | LOC: M SLEEP HO 10:42 | PROVIDERS: ATTEND Internal Medicine Pulmonary Disease | DX: G47.33 Obstructive sleep apnea (adult) (pediatric) (principal) ==

== ENCOUNTER 2023-12-18 11:44 | Emergency (ER) | payer MEDICARE ==
[~2023-12-18] VITALS: Ht 152.4 cm; Wt 91.6 kg
[~2023-12-18 11:44] MED LIST changes: -ISOVUE-M 300 61% 15ML VIAL As Ordered ONE; -LIDOCAINE 1% SDV 30ML VIAL As Ordered ONE; -TRIAMCINOLONE ACETONIDE SUSP 40MG/ML 1ML VIAL As Ordered ONE; -diazePAM 2 MG TAB As Ordered ONE
[2023-12-18 11:46] VITALS: BP 182/92; TEMP 97.6; O2SAT 100
== END 2023-12-18 13:21 | disposition left against medical advice (07) ==
LOC: M ED 11:44
DX: Z53.21 Procedure and treatment not carried out due to patient leaving prior to being seen by health care provider (principal)

== ENCOUNTER → 2023-12-18 | Outpatient (CLI) | payer MEDICARE, OTHER ==
[~2023-12-18] MED LIST changes: +ISOVUE-M 300 61% 15ML VIAL As Ordered ONE; +LIDOCAINE 1% SDV 30ML VIAL As Ordered ONE; +TRIAMCINOLONE ACETONIDE SUSP 40MG/ML 1ML VIAL As Ordered ONE; +diazePAM 2 MG TAB As Ordered ONE
== END ==
LOC: M PAIN 08:00
PROVIDERS: ATTEND Anesthesiology
DX: M46.1 Sacroiliitis, not elsewhere classified (principal); G89.29 Other chronic pain; M54.50 Low back pain, unspecified; G25.81 Restless legs syndrome; E16.2 Hypoglycemia, unspecified; D64.9 Anemia, unspecified; J45.909 Unspecified asthma, uncomplicated; Z79.899 Other long term (current) drug therapy; Z88.5 Allergy status to narcotic agent; Z88.0 Allergy status to penicillin; Z88.8 Allergy status to other drugs, medicaments and biological substances; Z91.010 Allergy to peanuts; Z91.011 Allergy to milk products; Z91.048 Other nonmedicinal substance allergy status
CPT/HCPCS: 27096; J0665; J3301; Q9967

== ENCOUNTER → 2023-12-24 | Outpatient (CLI) | payer OTHER | LOC: M RAD 10:05 | PROVIDERS: ATTEND Nurse Practitioner Family | DX: N17.9 Acute kidney failure, unspecified (principal); I10 Essential (primary) hypertension ==

== ENCOUNTER → 2024-01-19 | Outpatient (CLI) | payer MEDICARE, OTHER | LOC: M PAIN 09:15 | PROVIDERS: ATTEND Nurse Practitioner Family | DX: G89.29 Other chronic pain (principal); M46.1 Sacroiliitis, not elsewhere classified; G25.81 Restless legs syndrome; E16.2 Hypoglycemia, unspecified; D64.9 Anemia, unspecified; J45.909 Unspecified asthma, uncomplicated; G47.30 Sleep apnea, unspecified; E73.9 Lactose intolerance, unspecified; Z79.899 Other long term (current) drug therapy; Z88.0 Allergy status to penicillin; Z88.5 Allergy status to narcotic agent; Z88.8 Allergy status to other drugs, medicaments and biological substances; Z91.010 Allergy to peanuts; Z91.018 Allergy to other foods; Z91.048 Other nonmedicinal substance allergy status ==

== ENCOUNTER → 2024-03-19 | Outpatient (CLI) | payer MEDICARE, OTHER | LOC: M PAIN 09:15 | PROVIDERS: ATTEND Nurse Practitioner Family | DX: G89.29 Other chronic pain (principal); M46.1 Sacroiliitis, not elsewhere classified; G25.81 Restless legs syndrome; D64.9 Anemia, unspecified; J45.909 Unspecified asthma, uncomplicated; G47.30 Sleep apnea, unspecified; Z79.899 Other long term (current) drug therapy; Z88.5 Allergy status to narcotic agent; Z88.0 Allergy status to penicillin; Z88.8 Allergy status to other drugs, medicaments and biological substances; Z91.018 Allergy to other foods; Z91.010 Allergy to peanuts; Z91.011 Allergy to milk products ==